=== PATIENT | female | born 1935 | race Caucasian/White ===

== ENCOUNTER 2021-04-17 06:00 | Day surgery (SDC) | payer MEDICARE ==
[~2021-04-17] VITALS: Ht 152.4 cm; Wt 76.9 kg
[~2021-04-17 06:00] MED LIST: ALLO300 PO; ATOR20 PO; Cipro250 MG PO; FURO40 PO; GABA300 PO; Humalog100 UNIT/1; Humulin N100 UNIT/1; INVOKANA300 MG PO; LOSA50 PO; LYRICA50 MG PO; METO50 PO; METO5A PO; Norco 5-325 Ta1 EACH PO; ONDA4 PO; ONDA8 PO; PROC10 PO; TRESIBA FL200 UNIT/1 SQ; TRESIBA100 UNIT/2 SC; Zofran Odt4 MG SL
--- NOTE | 2021-04-17 09:34 | NUR ---
04/17/21 0934 Fernando Tyler NO SPECIMEN PER
--- NOTE | 2021-04-17 11:08 | NUR ---
PT ARRIVED TO THE ROOM AT 1055. PT IS DROWSY BUT AWAKENS WHEN SPOKEN TO, SHE IS ORIENTED. DENIES PAIN AND NAUSEA. SHE REPORTS FEELING. TIRED. WILL CONTINUE TO MONITOR.
--- NOTE | 2021-04-17 15:07 | NUR ---
DISCHARGE PT PROVIDED WITH WRITTEN AND VERBAL DISCHARGE, SHE REPORTED UNDERSTANDING, FAMILY ALSO REPORTED UNDERSTANDING. PRESCRIPTIONS FOR PERCOCET AND XARELTO PROVIDED FOR PT, SHE REQUESTED THAT HER SON TAKE THEM AND HAVE THEM FILLED. CLEAN AQUACEL DRESSINGS PROVIDED FOR HOME. PT MET ALL THERAPY GOALS, TOLERATED PO, PAIN MANAGED AND VSS AT TIME OF DISCHARGE. PT ESCORTED OUT IN W/C BY THOMPSON BALTAZAR.
--- NOTE | 2021-04-17 18:00 | NUR ---
SHIFT SUMMARY PT IS POD#0 FROM R TKA WITH DR. SEGOVIA. SHE IS ALERT AND ORIENTED SINCE SURGERY. SHE WAS ABLE TO GET OOB TO THE BSC WITH THERAPY BUT FELT DIZZY AND HAD ELEVATED BP. PT WAS ASSISTED BACK TO BED AND BP DECREASED. PT HAS COMPLAINED OF NAUSEA WITH MOVEMENT, BUT HAS TOLERATED SOME CLEAR LIQUIDS. PT HAS DENIED PAIN. VSS. WILL MONITOR UNTIL REPORT TO FABI MCCOY.
[2021-04-18 06:34] LABS: BASOPHILS ABSOLUTE AUTO 0.02 K/mm3 (0.00-0.23); BASOPHILS PERCENT AUTO 0 % (0-2); EOSINOPHILS ABSOLUTE AUTO 0.01 K/mm3 (0.00-0.68); EOSINOPHILS PERCENT AUTO 0 % (0-6); Hemoglobin 9.1 g/dL (11.5-16.0); IMMATURE GRAN ABSOLUTE AUTO 0.08 K/mm3 (0.00-0.10); IMMATURE GRAN PERCENT AUTO 1 % (0-1); LYMPHOCYTES ABSOLUTE AUTO 2.18 K/mm3 (0.84-5.20); LYMPHOCYTES PERCENT AUTO 15 % (21-46); MONOCYTES ABSOLUTE AUTO 0.99 K/mm3 (0.16-1.47); MONOCYTES PERCENT AUTO 7 % (4-13); Mean Corpuscular HGB 30.6 pg (26.0-34.0); Mean Corpuscular HGB Conc 32.5 g/dL (31.5-36.5); Mean Corpuscular Volume 94 fL (80-100); Mean Platelet Volume 10.8 fL (9.1-12.4); NEUTROPHILS ABSOLUTE AUTO 11.06 K/mm3 (1.96-9.15); NEUTROPHILS PERCENT AUTO 77 % (41-73); Platelet Count 262 K/mm3 (150-400); RDW Coefficient Variation 14.6 % (11.7-14.2); RDW Standard Deviation 50.4 fL (35.1-46.3); Red Blood Cell Count 2.97 M/mm3 (3.80-5.20); White Blood Cell Count 14.34 K/mm3 (4.00-11.30)
[2021-04-18 06:59] LABS: Bun/Creatinine Ratio 30.7 (12.0-20.0); Calcium, Blood 8.1 mg/dL (8.5-10.1); Creatinine, Blood 1.66 mg/dL (0.40-1.00); Magnesium, Blood 2.5 mg/dL (1.6-2.4); Potassium, Blood 5.3 mmol/L (3.5-5.5)
--- NOTE | 2021-04-18 11:45 | NUR ---
notified kane monsalve np of patients cbg results. no new orders
[2021-04-18] MEDS ORDERED: AMOCLA875 PO (12:09)
[2021-04-18] MEDS ORDERED: Aspir 8181 MG PO (12:10)
[2021-04-18] MEDS ORDERED: OXAYDO5 M1 PO (12:11)
[2021-04-18] MEDS ORDERED: PROMETHAZINE12.5 M1 PO (12:12)
--- NOTE | 2021-04-18 16:36 | NUR ---
1608 DISCHARGED TO HOME WITH HER SISTER. PT STATES HER SON WILL BE STAYING WITH HER FOR LONG SHE NEEDS. PT AMBULATING IN ROOM AND DUNNE WITH WALKER AND GAIT BELT. PT STANDBY ASSIST. PT REPORTS PAIN IS ADEQUATELY CONTROLLED WOITH PO MEDS. ABRAHAN PO FOOD AND FKUID WITHOUT NAUSEA. PT TELLS ME SHE IS ABLE TO MANAGE HER BLOOD SUGARS AT HOME- PT AWARE THEY ARE ELEVATED AND FEELS THIS IS DUE TO HER MISSING YESTERDAYS USUAL INSULIN REGIME
== END 2021-04-18 16:08 | disposition home or self-care (01) ==
LOC: ORSCMMR 06:00 → SURS 11:23 → ORD 12:30 → SURS 13:45 → ORD 14:00 → ORSCMMR 14:00 → ORD 14:30 → ORSCMMR 04-18 16:08
PROVIDERS: Orthopaedic Surgery
DX: M17.11 Unilateral primary osteoarthritis, right knee (principal); I10 Essential (primary) hypertension; I25.10 Atherosclerotic heart disease of native coronary artery without angina pectoris; N18.9 Chronic kidney disease, unspecified; E11.40 Type 2 diabetes mellitus with diabetic neuropathy, unspecified; Z79.4 Long term (current) use of insulin; Z79.899 Other long term (current) drug therapy; E66.9 Obesity, unspecified; Z68.33 Body mass index [BMI] 33.0-33.9, adult
CPT/HCPCS: 36415; 73560-RT; 80048; 82947; 83735; 85025; 97110; 97116; 97161; 97530; A9270; C1713; C1776; J0171; J0690; J0735; J1100; J1815; J1885; J2250; J2405; J2704; J2795; J3010; J7040; J7120

== ENCOUNTER 2021-05-06 09:26 | Day surgery (SDC) | payer MEDICARE ==
[~2021-05-06 09:26] MED LIST changes: +AMOCLA875 PO; +Aspir 8181 MG PO; +OXAYDO5 M1 PO; +PROMETHAZINE12.5 M1 PO
== END 2021-05-06 23:07 | disposition home or self-care (01) ==
LOC: MOI US 09:26 → EDSTATUS 10:15 → MOI US 23:07 → MOI MAM 05-27 08:00
DX: N64.1 Fat necrosis of breast (principal)
CPT/HCPCS: 19083; 77065; 88305; A4648; G0279

== ENCOUNTER 2021-05-08 04:46 | Inpatient (IN) | payer MEDICARE ==
[~2021-05-08] VITALS: Ht 152.4 cm; Wt 81.1 kg
[2021-05-08 05:51] LABS: BASOPHILS ABSOLUTE AUTO 0.04 K/mm3 (0.00-0.23); BASOPHILS PERCENT AUTO 1 % (0-2); EOSINOPHILS ABSOLUTE AUTO 0.27 K/mm3 (0.00-0.68); EOSINOPHILS PERCENT AUTO 4 % (0-6); Hematocrit 29.3 % (33.0-51.0); Hemoglobin 9.3 g/dL (11.5-16.0); IMMATURE GRAN ABSOLUTE AUTO 0.03 K/mm3 (0.00-0.10); IMMATURE GRAN PERCENT AUTO 0 % (0-1); LYMPHOCYTES PERCENT AUTO 28 % (21-46); MONOCYTES ABSOLUTE AUTO 0.63 K/mm3 (0.16-1.47); MONOCYTES PERCENT AUTO 8 % (4-13); Mean Corpuscular HGB 29.5 pg (26.0-34.0); Mean Corpuscular HGB Conc 31.7 g/dL (31.5-36.5); Mean Corpuscular Volume 93 fL (80-100); Mean Platelet Volume 9.5 fL (9.1-12.4); NEUTROPHILS ABSOLUTE AUTO 4.48 K/mm3 (1.96-9.15); NEUTROPHILS PERCENT AUTO 59 % (41-73); Platelet Count 269 K/mm3 (150-400); RDW Coefficient Variation 14.9 % (11.7-14.2); RDW Standard Deviation 51.2 fL (35.1-46.3); Red Blood Cell Count 3.15 M/mm3 (3.80-5.20); White Blood Cell Count 7.55 K/mm3 (4.00-11.30)
[2021-05-08] MEDS ORDERED: TRULICITY0.75 MG/01 SC (05:55)
[2021-05-08] MEDS ORDERED: NORT25 PO (05:57)
[2021-05-08 06:20] LABS: Alanine Aminotransfer (ALT/SGP 25 U/L (12-78); Albumin, Blood 2.5 g/dL (3.4-5.0); Albumin/Globulin Ratio 0.6 (0.8-1.8); Alk Phos 120 U/L (50-136); Anion Gap 4 mmol/L (6-16); Aspartate Aminotrans (AST/SGOT 25 U/L (12-37); Bilirubin, Total 0.2 mg/dL (0.1-1.0); Blood Urea Nitrogen 35 mg/dL (8-24); Bun/Creatinine Ratio 24.1 (12.0-20.0); CO2, Blood 33 mmol/L (21-32); Calcium, Blood 8.5 mg/dL (8.5-10.1); Chloride, Blood 104 mmol/L (98-108); Creatinine, Blood 1.45 mg/dL (0.40-1.00); Globulin, Blood 4.3 g/dL (2.2-4.0); Glomerular Filtration Rate 34 (60-); Glucose, Blood 104 mg/dL (70-99); Sodium, Blood 141 mmol/L (136-145); Total Protein, Blood 6.8 g/dL (6.4-8.2); Troponin I <0.015 ng/mL (0.000-0.040)
[2021-05-08 06:23] LABS: Influenza A, PCR NEGATIVE (NEGATIVE); Influenza B, PCR NEGATIVE (NEGATIVE); Resp Syncytial Virus, PCR NEGATIVE (NEGATIVE); SARS-Cov-2 (COVID-19) PCR, MMC NEGATIVE (NEGATIVE)
--- NOTE | 2021-05-08 16:06 | NUR ---
DAY SHIFT SUMMARY/ADMIT PT ADMIT FROM ER. PLEASANT 85 YEAR OLD FEMALE ADMITTED WITH ACUTE CHF. ON TELE WITH NSR AT 76. ORIENTED TO ROOM AND CALL LIGHT. MED REQ REVIEWED. PT DENIES PAIN AT TIME OF ADMIT. O2 2L NC. INDEPENDENT WITH STAND BY IN ROOM. STATES SHE USES A CANE MOST OF THE TIME AT HOME. PT REPORTS SHE HAD A FALL ABOUT A WEEK AGO AT HOME WHEN SHE GOT UP FROM BED IN THE MIDDLE OF THE NIGHT TO GO TO THE RESTROOM AND FELL. PT ALSO STATES SHE HAS RECENTLY (3 WEEKS AGO PER PT) HAD RT KNEE SURGERY.
--- NOTE | 2021-05-09 02:32 | NUR ---
HYDRALAZINE 10MG GIVEN IV PER PRN ORDER FOR SYSTOLIC >160.
--- NOTE | 2021-05-09 05:33 | NUR ---
MS SCHMITZ DID NOT GET MUCH SLEEP LAST NIGHT. SHE WAS UP MULTIPLE TIMES ON THE BEDSIDE COMMODE, SHE DID NOT COMPLAIN SHE SAID SHE WAS BREATHING MUCH BETTER THAT WHEN SHE ARRIVED AT THE HOSPITAL. TOOK OXYCODONE ONCE IN THE EVENING WHICH RELIEVED HER RIGHT (SURGICAL) KNEE PAIN AND LATER TYLENOL FOR A HEADACHE WHICH RELIEVED IT FULLY. HYDRALAZINE 10MG IV GIVEN FOR ELEVATED BP (183/63) WITH DECREASE INTO 150 RANGE. ALERT, ORIENTED AND COOPERATIVE WITH CARE
[2021-05-09 06:01] LABS: Hematocrit 26.2 % (33.0-51.0); Hemoglobin 8.1 g/dL (11.5-16.0); Mean Corpuscular HGB 29.1 pg (26.0-34.0); Mean Corpuscular HGB Conc 30.9 g/dL (31.5-36.5); Mean Corpuscular Volume 94 fL (80-100); Mean Platelet Volume 10.2 fL (9.1-12.4); Platelet Count 263 K/mm3 (150-400); RDW Coefficient Variation 14.6 % (11.7-14.2); RDW Standard Deviation 51.1 fL (35.1-46.3); Red Blood Cell Count 2.78 M/mm3 (3.80-5.20); White Blood Cell Count 7.05 K/mm3 (4.00-11.30)
[2021-05-09 06:56] LABS: Albumin, Blood 2.1 g/dL (3.4-5.0); Anion Gap 5 mmol/L (6-16); Blood Urea Nitrogen 36 mg/dL (8-24); Bun/Creatinine Ratio 27.9 (12.0-20.0); CO2, Blood 30 mmol/L (21-32); Calcium, Blood 8.6 mg/dL (8.5-10.1); Chloride, Blood 106 mmol/L (98-108); Creatinine, Blood 1.29 mg/dL (0.40-1.00); Glomerular Filtration Rate 39 (60-); Glucose, Blood 45 mg/dL (70-99); Phosphorus, Blood 3.7 mg/dL (2.5-4.9); Potassium, Blood 3.9 mmol/L (3.5-5.5); Sodium, Blood 141 mmol/L (136-145)
--- NOTE | 2021-05-09 07:53 | NUR ---
PT GLUCOSE LVEL WAS 45. PT AWOKE EASILY WITH VERBLA STIMULI AND DID NOT REPORT ANY SYMPTOMS OF HYPOGLYCEMIA. PT GIVEN CRANBERRY JUICE AND YOGURT. REPEAT CBG WAS 56. PT GIVEN APPLE JUICE AND ORANGE JUICE.
--- NOTE | 2021-05-09 19:01 | NUR ---
SHIFT SUMMARY: PT A/O X 3 STANDBY ASSIST, PLEASANT AND COOPERATIVE. PT HAD ELEVATED BP T/OUT THE DAAY. PRN HYDRALAZINE GIVEN IN THE EVENING AND IMPROVED SLIGHTLY WITH SBP 167. PT ALSO DEVELOPED NAUSEA AND REPORTED IT WAS DUE TO EATING TOO MUCH AT LUNCH TIME. ORDER FOR ZOFRAN RECEIVED FROM DR. BORREGO WHICH WAS EFFECTIVE IN TREATING NAUSEA. PT HAD CRITICAL CBG OF 45 THIS AM BUT WAS IN HIGH 100'S DURING MEALS. NO OTHER ACUTE CONCERNS OR CHANGES.
[2021-05-10 04:37] LABS: Hematocrit 27.3 % (33.0-51.0); Hemoglobin 8.5 g/dL (11.5-16.0); Mean Corpuscular HGB 29.2 pg (26.0-34.0); Mean Corpuscular HGB Conc 31.1 g/dL (31.5-36.5); Mean Corpuscular Volume 94 fL (80-100); Mean Platelet Volume 9.4 fL (9.1-12.4); Platelet Count 280 K/mm3 (150-400); RDW Coefficient Variation 14.9 % (11.7-14.2); Red Blood Cell Count 2.91 M/mm3 (3.80-5.20); White Blood Cell Count 7.18 K/mm3 (4.00-11.30)
--- NOTE | 2021-05-10 04:39 | NUR ---
PATIENT HAS SOFT LUMP (FEELS LIKE FATTY TUMOR) RIGHT ABOVE IV. NO DISCOMFORT, OR DISCOLORATION NOTED. PATIENT UNSURE WHEN OR HOW SHE GOT IT. WILL CONTINUIE CLOSE MONITORING.
--- NOTE | 2021-05-10 04:43 | NUR ---
LEELEE SLEPT MUCH BETTER THAN HER PREVIOUS NIGHT. NAUSEATED EARLY IN THE EVENING, ARELI WORKED TO GIVE HER RELIEF. NO COMPLAINTS OF KNEE PAIN SHE COULDN'T TOLERATE. OOB FROM BED WITH A STANDBY ASSIST AND FWW TO BATHROOM WITH NO CONTACT BY STAFF
[2021-05-10 05:22] LABS: Bun/Creatinine Ratio 25.2 (12.0-20.0); Calcium, Blood 8.6 mg/dL (8.5-10.1); Creatinine, Blood 1.11 mg/dL (0.40-1.00); Percent Saturation 19.7 % (15.0-50.0); Potassium, Blood 4.2 mmol/L (3.5-5.5)
[2021-05-10] MEDS ORDERED: Aspir 8181 MG PO (11:12)
[2021-05-10] MEDS ORDERED: TORSE20 PO (11:13)
--- NOTE | 2021-05-10 11:36 | NUR ---
D'C IV W/BRUISING TO AREA. REVIEW D'C. AWARE NEEDS TO MAKE F/U APPT WE COULD NOT MAKE APPT DUE TO PCP BEING CLOSED. AWARE STOP TAKING LASIX AND WILL START DEMADEX TOMORROW. REVIEW MED. AWARE CAN RETURN TO E.R. IF NEEDED. REVIEW CHF DX. ANSWER ALL QUESTIONS. PATIENT VERBALIZES UNDERSTANDING. AWAITING RIDE.
== END 2021-05-10 11:54 | disposition home health service (06) | DRG 291 ==
LOC: ER 04:46 → ERHOLD 06:25 → MEDS 14:39
PROVIDERS: Emergency Medicine; Internal Medicine; ADMIT Family Medicine
DX: I13.0 Hypertensive heart and chronic kidney disease with heart failure and stage 1 through stage 4 chronic kidney disease, or unspecified chronic kidney disease (principal); I50.31 Acute diastolic (congestive) heart failure; I16.1 Hypertensive emergency; Z20.822 Contact with and (suspected) exposure to COVID-19; M10.9 Gout, unspecified; D63.1 Anemia in chronic kidney disease; N18.30 Chronic kidney disease, stage 3 unspecified; E11.22 Type 2 diabetes mellitus with diabetic chronic kidney disease; E78.5 Hyperlipidemia, unspecified; Z96.651 Presence of right artificial knee joint; Z90.49 Acquired absence of other specified parts of digestive tract; Z90.710 Acquired absence of both cervix and uterus; Z87.891 Personal history of nicotine dependence; Z79.4 Long term (current) use of insulin; Z79.82 Long term (current) use of aspirin; Z79.899 Other long term (current) drug therapy
CPT/HCPCS: 0241U; 19083; 36415; 71045; 77065; 78580; 80048; 80053; 80069; 82728; 82947; 83036; 83540; 83550; 83880; 84145; 84484; 85025; 85027; 85379; 88305; 93005; 93010; 93306; 94640; 94760; 96374; 99285-25; A4648; A9270; A9540; G0279; J0295; J0360; J1650; J1815; J1940; J2405; J7050

== ENCOUNTER 2021-06-28 18:53 | Emergency (ER) | payer MEDICARE ==
[~2021-06-28] VITALS: Ht 152.4 cm; Wt 73.9 kg
[~2021-06-28 18:53] MED LIST changes: +NORT25 PO; +TORSE20 PO; +TRULICITY0.75 MG/01 SC
[2021-06-28 20:05] LABS: BASOPHILS ABSOLUTE AUTO 0.04 K/mm3 (0.00-0.23); BASOPHILS PERCENT AUTO 0 % (0-2); EOSINOPHILS ABSOLUTE AUTO 0.07 K/mm3 (0.00-0.68); EOSINOPHILS PERCENT AUTO 1 % (0-6); Hematocrit 36.7 % (33.0-51.0); Hemoglobin 11.8 g/dL (11.5-16.0); IMMATURE GRAN ABSOLUTE AUTO 0.05 K/mm3 (0.00-0.10); IMMATURE GRAN PERCENT AUTO 0 % (0-1); LYMPHOCYTES ABSOLUTE AUTO 2.58 K/mm3 (0.84-5.20); LYMPHOCYTES PERCENT AUTO 20 % (21-46); MONOCYTES ABSOLUTE AUTO 0.99 K/mm3 (0.16-1.47); MONOCYTES PERCENT AUTO 8 % (4-13); Mean Corpuscular HGB Conc 32.2 g/dL (31.5-36.5); Mean Corpuscular Volume 87 fL (80-100); Mean Platelet Volume 9.9 fL (9.1-12.4); NEUTROPHILS ABSOLUTE AUTO 9.53 K/mm3 (1.96-9.15); NEUTROPHILS PERCENT AUTO 72 % (41-73); Platelet Count 309 K/mm3 (150-400); RDW Coefficient Variation 14.6 % (11.7-14.2); RDW Standard Deviation 46.2 fL (35.1-46.3); Red Blood Cell Count 4.22 M/mm3 (3.80-5.20); White Blood Cell Count 13.26 K/mm3 (4.00-11.30)
[2021-06-28 20:28] LABS: Alanine Aminotransfer (ALT/SGP 26 U/L (12-78); Albumin, Blood 3.2 g/dL (3.4-5.0); Albumin/Globulin Ratio 0.7 (0.8-1.8); Alk Phos 115 U/L (50-136); Anion Gap 8 mmol/L (6-16); Aspartate Aminotrans (AST/SGOT 16 U/L (12-37); Bilirubin, Total 0.3 mg/dL (0.1-1.0); Blood Urea Nitrogen 35 mg/dL (8-24); Bun/Creatinine Ratio 27.3 (12.0-20.0); CO2, Blood 30 mmol/L (21-32); Calcium, Blood 9.7 mg/dL (8.5-10.1); Chloride, Blood 99 mmol/L (98-108); Creatinine, Blood 1.28 mg/dL (0.40-1.00); Globulin, Blood 4.6 g/dL (2.2-4.0); Glomerular Filtration Rate 40 (60-); Glucose, Blood 133 mg/dL (70-99); Potassium, Blood 4.1 mmol/L (3.5-5.5); Sodium, Blood 137 mmol/L (136-145); Total Protein, Blood 7.8 g/dL (6.4-8.2); Troponin I <0.015 ng/mL (0.000-0.040)
[2021-06-28 21:50] LABS: Source, Urine Clean Catch
[2021-06-28 21:52] LABS: Bilirubin, Urine Neg (Neg); Blood, Urine 3+ (Neg); Glucose Qualitative, Urine Neg (Neg); Ketones, Urine Neg (Neg); Leukocyte Esterase, Urine 3+ (Neg); Nitrite, Urine Neg (Neg); Protein, Urine 3+ (Neg); Specific Gravity, Urine 1.015 (1.003-1.022); Urobilinogen, Urine NORM (Normal)
[2021-06-28 22:32] LABS: Appearance, Urine Cloudy (Clear); Color, Urine Pale Yellow (P-Yellow)
[2021-06-28 22:33] LABS: Bacteria Many /hpf; Red Blood Cells, Urine 25-50 /hpf (0-2); Squamous Epithelial Cells Few /hpf (Few); White Blood Cells, Urine 25-50 /hpf (0-5)
[2021-06-28 22:34] LABS: Mucus Mod (0-Heavy); Trichomonas Rare /hpf; Yeast/Fungi Urine Rare /hpf
[2021-06-28] MEDS ORDERED: ALBU8HFA2 INH (22:48)
[2021-06-28] MEDS ORDERED: PROC25S PO (22:50)
[2021-06-28] MEDS ORDERED: PROM25 PO (22:50)
[2021-06-28] MEDS ORDERED: FURO40 PO (22:53)
[2021-06-28] MEDS ORDERED: TRESIBA FL100 UNIT/2 SC (22:55)
[2021-06-28] MEDS ORDERED: FLUC150A PO (23:47)
[2021-06-28] MEDS ORDERED: CEFD300 PO (23:47)
[2021-06-28] MEDS ORDERED: Compro25 MG PR (23:49)
[2021-06-28] MEDS ORDERED: PROC5 PO (23:49)
[2021-06-29] MEDS ORDERED: CEFD300 PO (01:27)
[2021-06-29] MEDS ORDERED: Compro25 MG PR (01:27)
[2021-06-29] MEDS ORDERED: FLUC150A PO (01:27)
== END 2021-06-29 02:32 | disposition home or self-care (01) ==
LOC: ER 18:53
PROVIDERS: Physician Assistant
DX: N39.0 Urinary tract infection, site not specified (principal); E11.65 Type 2 diabetes mellitus with hyperglycemia; R11.2 Nausea with vomiting, unspecified; I10 Essential (primary) hypertension; E78.5 Hyperlipidemia, unspecified; M10.9 Gout, unspecified; Z87.891 Personal history of nicotine dependence; Z79.4 Long term (current) use of insulin; Z79.899 Other long term (current) drug therapy
CPT/HCPCS: 36415; 80053; 81001; 83690; 84484; 85025; 87077; 87086; 87186; 93005; 93010; 96365; 96375; 99285-25; A9270; J0696; J0780; J1790; J2405; J7030

== ENCOUNTER 2021-11-24 12:02 | Inpatient (IN) | payer MEDICARE ==
[~2021-11-24] VITALS: Ht 152.4 cm; Wt 79.4 kg
[~2021-11-24 12:02] MED LIST changes: +ALBU8HFA2 INH; +CEFD300 PO; +Compro25 MG PR; +FLUC150A PO; +NOVOLOG100 UNIT/2 SC; +PROC25S PO; +PROC5 PO; +PROM25 PO; +TRESIBA FL100 UNIT/2 SC
[2021-11-24 13:10] LABS: BASOPHILS ABSOLUTE AUTO 0.04 K/mm3 (0.00-0.23); BASOPHILS PERCENT AUTO 0 % (0-2); EOSINOPHILS ABSOLUTE AUTO 0.14 K/mm3 (0.00-0.68); EOSINOPHILS PERCENT AUTO 1 % (0-6); Hematocrit 38.2 % (33.0-51.0); Hemoglobin 12.2 g/dL (11.5-16.0); IMMATURE GRAN ABSOLUTE AUTO 0.07 K/mm3 (0.00-0.10); IMMATURE GRAN PERCENT AUTO 0 % (0-1); LYMPHOCYTES ABSOLUTE AUTO 2.04 K/mm3 (0.84-5.20); LYMPHOCYTES PERCENT AUTO 11 % (21-46); MONOCYTES ABSOLUTE AUTO 0.86 K/mm3 (0.16-1.47); MONOCYTES PERCENT AUTO 5 % (4-13); Mean Corpuscular HGB 29.8 pg (26.0-34.0); Mean Corpuscular HGB Conc 31.9 g/dL (31.5-36.5); Mean Corpuscular Volume 93 fL (80-100); Mean Platelet Volume 10.5 fL (9.1-12.4); NEUTROPHILS ABSOLUTE AUTO 14.81 K/mm3 (1.96-9.15); NEUTROPHILS PERCENT AUTO 82 % (41-73); Platelet Count 266 K/mm3 (150-400); RDW Coefficient Variation 13.2 % (11.7-14.2); RDW Standard Deviation 44.3 fL (35.1-46.3); White Blood Cell Count 17.96 K/mm3 (4.00-11.30)
[2021-11-24 13:20] LABS: Albumin/Globulin Ratio 0.6 (0.8-1.8); Bilirubin, Total 0.3 mg/dL (0.1-1.0); Bun/Creatinine Ratio 23.9 (12.0-20.0); Calcium, Blood 8.9 mg/dL (8.5-10.1); Creatinine, Blood 1.42 mg/dL (0.40-1.00); Globulin, Blood 4.8 g/dL (2.2-4.0); Potassium, Blood 3.8 mmol/L (3.5-5.5); Total Protein, Blood 7.8 g/dL (6.4-8.2)
[2021-11-24 14:10] LABS: Influenza A, PCR NEGATIVE (NEGATIVE); Influenza B, PCR NEGATIVE (NEGATIVE); Resp Syncytial Virus, PCR NEGATIVE (NEGATIVE); SARS-Cov-2 (COVID-19) PCR, MMC NEGATIVE (NEGATIVE)
--- NOTE | 2021-11-24 17:34 | NUR ---
SHIFT SUMMARY- PT NEW ADMIT. PT A&O X3. NO C/O OF PAIN. DAUGHTER AT BEDSIDE. PT WITH BED IN LOWEST POSITION, SIDE RAILS UP X3, AND CALL LIGHT WITHIN REACH.
[2021-11-25 04:29] LABS: Hematocrit 30.5 % (33.0-51.0); Hemoglobin 9.9 g/dL (11.5-16.0); Mean Corpuscular HGB 30.3 pg (26.0-34.0); Mean Corpuscular HGB Conc 32.5 g/dL (31.5-36.5); Mean Corpuscular Volume 93 fL (80-100); Mean Platelet Volume 10.8 fL (9.1-12.4); Platelet Count 213 K/mm3 (150-400); RDW Coefficient Variation 13.4 % (11.7-14.2); Red Blood Cell Count 3.27 M/mm3 (3.80-5.20); White Blood Cell Count 15.11 K/mm3 (4.00-11.30)
--- NOTE | 2021-11-25 04:57 | NUR ---
SHIFT SUMMARY PATIENT HAD NO ACUTE CHANGES OBSERVED. AXOX 3 AND ONE ASSIST TO BSC. RT IN FOR BREATHING TX. ON TELEMETRY NSR 96. PIV REMAINS INTACT. ON 2L O2 NC AND RA BASELINE. VSS/AFEBRILE. DENIES PAIN AND N/V. COOPERATIVE WITH CARE. CALL LIGHT IN REACH. BED IN LOWEST POSITION. WILL CONTINUE TO MONITOR UNTIL DAY SHIFT NURSE ASSUMES CARE.
[2021-11-25 05:03] LABS: Bun/Creatinine Ratio 29.1 (12.0-20.0); Calcium, Blood 8.4 mg/dL (8.5-10.1); Creatinine, Blood 1.58 mg/dL (0.40-1.00)
--- NOTE | 2021-11-25 05:50 | NUR ---
CBG 537. HOSPITALIST DR DUPONT ORDERED HUMALOG 10 UNITS X ONE. RECHECK IN TWO HOURS.
--- NOTE | 2021-11-25 16:17 | NUR ---
SHIFT SUMMARY PATIENT IS ALERT AND ORIENTED X4, PLEASANT AND COOPERATIVE WITH CARE. PATIENT HAS BEEN DOING WELL TODAY. PATIENT IS NOW ON RA SATTING ABOVE 90% NO SOB OR DISTRESS NOTED. CBG'S HAVE BEEN TRENDING DOWN SINCE THIS AM. PATIENT HAS BEEN UP A STAND BY ASSIST TO THE SHOWER AND BATHROOM. PATIENT CALLS APPROPRIATELY. NO ACUTE CHANGES THIS SHIFT. CALL LIGHT WITHIN REACH, BED IN LOWEST POSITION.
--- NOTE | 2021-11-26 04:03 | NUR ---
SHIFT SUMMARY ADMITTED FOR RESPIRATORY FAILURE. FULL CODE. PLAN IS TO DIURESE AND MONITOR OXYGEN NEEDS. PT FELT SOB THIS SHIFT AND REQUESTED 2 LPM O2. TELEMETRY: TACH @ 101 BPM. ADA DIET. STANDBY ASSIST W/BRP. ACHS CHEMSTICKS. PT REPORTS DIFFICULTY SLEEPING
[2021-11-26] MEDS ORDERED: FURO40 PO (13:57)
[2021-11-26] MEDS ORDERED: ASPI81CH PO (13:59)
[2021-11-26] MEDS ORDERED: SPIR25 PO (13:59)
--- NOTE | 2021-11-26 16:52 | NUR ---
DISCHARGE INSTRUCTIONS COMPLETED AND DISCUSSED WITH PT EXPRESSING UNDEERSTANDING. SCRIPTS FAXED TO [facility]. O2 DELIVERED TO ROOM AND PT WHEELED TO [facility]B VIA W/C. CONTINUES TO HAVE AUDIBLE WHEEZING PRIOR TO DISCHARGE.
== END 2021-11-26 16:46 | disposition home or self-care (01) | DRG 291 ==
LOC: ER 12:02 → MEDS 16:08
PROVIDERS: Emergency Medicine; Physician Assistant; ADMIT Internal Medicine
DX: I13.0 Hypertensive heart and chronic kidney disease with heart failure and stage 1 through stage 4 chronic kidney disease, or unspecified chronic kidney disease (principal); J96.01 Acute respiratory failure with hypoxia; I50.31 Acute diastolic (congestive) heart failure; N18.30 Chronic kidney disease, stage 3 unspecified; D63.1 Anemia in chronic kidney disease; Z20.822 Contact with and (suspected) exposure to COVID-19; E11.65 Type 2 diabetes mellitus with hyperglycemia; E11.22 Type 2 diabetes mellitus with diabetic chronic kidney disease; Z79.899 Other long term (current) drug therapy; Z79.82 Long term (current) use of aspirin; Z79.4 Long term (current) use of insulin; K59.09 Other constipation; Z96.651 Presence of right artificial knee joint; Z87.891 Personal history of nicotine dependence; Z90.49 Acquired absence of other specified parts of digestive tract; Z90.710 Acquired absence of both cervix and uterus
CPT/HCPCS: 0241U; 36415; 71045; 80048; 80053; 82947; 83880; 84484; 85025; 85027; 93005; 93010; 93306; 94640; 94644; 94664; 94760; 94761; 94762; 96374; 96375; 99285-25; A9270; J1815; J1940; J2405; J2930

== ENCOUNTER 2022-01-20 11:50 | Inpatient (IN) | payer MEDICARE ==
[~2022-01-20] VITALS: Ht 152.4 cm; Wt 73.6 kg
[~2022-01-20 11:50] MED LIST changes: +ASPI81CH PO; -ONDA4 PO; +ONDA4ODT MM; +SPIR25 PO
[2022-01-20 12:20] LABS: BASOPHILS ABSOLUTE AUTO 0.05 K/mm3 (0.00-0.23); BASOPHILS PERCENT AUTO 1 % (0-2); EOSINOPHILS ABSOLUTE AUTO 0.34 K/mm3 (0.00-0.68); EOSINOPHILS PERCENT AUTO 3 % (0-6); Hemoglobin 9.3 g/dL (11.5-16.0); IMMATURE GRAN ABSOLUTE AUTO 0.06 K/mm3 (0.00-0.10); IMMATURE GRAN PERCENT AUTO 1 % (0-1); LYMPHOCYTES ABSOLUTE AUTO 2.43 K/mm3 (0.84-5.20); LYMPHOCYTES PERCENT AUTO 23 % (21-46); MONOCYTES ABSOLUTE AUTO 0.76 K/mm3 (0.16-1.47); MONOCYTES PERCENT AUTO 7 % (4-13); Mean Corpuscular HGB 28.9 pg (26.0-34.0); Mean Corpuscular HGB Conc 33.2 g/dL (31.5-36.5); Mean Corpuscular Volume 87 fL (80-100); Mean Platelet Volume 10.4 fL (9.1-12.4); NEUTROPHILS ABSOLUTE AUTO 7.08 K/mm3 (1.96-9.15); NEUTROPHILS PERCENT AUTO 66 % (41-73); Platelet Count 358 K/mm3 (150-400); RDW Coefficient Variation 14.5 % (11.7-14.2); RDW Standard Deviation 45.5 fL (35.1-46.3); Red Blood Cell Count 3.22 M/mm3 (3.80-5.20); White Blood Cell Count 10.72 K/mm3 (4.00-11.30)
[2022-01-20 12:41] LABS: Source, Urine Clean Catch
[2022-01-20 12:44] LABS: Albumin, Blood 2.6 g/dL (3.4-5.0); Albumin/Globulin Ratio 0.6 (0.8-1.8); Bilirubin, Total 0.3 mg/dL (0.1-1.0); Bun/Creatinine Ratio 35.3 (12.0-20.0); Calcium, Blood 8.8 mg/dL (8.5-10.1); Creatinine, Blood 2.24 mg/dL (0.40-1.00); Globulin, Blood 4.4 g/dL (2.2-4.0); Potassium, Blood 5.7 mmol/L (3.5-5.5)
[2022-01-20 13:19] LABS: Bilirubin, Urine Neg (Neg); Blood, Urine Neg (Neg); Color, Urine Yellow (P-Yellow); Glucose Qualitative, Urine Neg (Neg); Ketones, Urine Neg (Neg); Leukocyte Esterase, Urine 3+ (Neg); Nitrite, Urine Neg (Neg); Protein, Urine 2+ (Neg); Urobilinogen, Urine NORM (Normal); pH, Urine 6.5 (5.0-8.0)
[2022-01-20 13:33] LABS: Appearance, Urine Hazy (Clear)
[2022-01-20 13:34] LABS: Bacteria Rare /hpf; Red Blood Cells, Urine Not Seen /hpf (0-2); Squamous Epithelial Cells Few /hpf (Few)
--- NOTE | 2022-01-20 16:51 | NUR ---
PT ARRIVED TO ROOM AT 1643. PT QUIET AND CALM 1 PERSON ASSIST TO RESTROO. PT AOX4 AND COOPERATIVE OF CARE. PT WAS SETTLED IN AND CALL LIGHT SET WITHIN REACH WILL CONTINUE TO MONITOR.
[2022-01-20 18:54] LABS: Bun/Creatinine Ratio 40.2 (12.0-20.0); Calcium, Blood 9.4 mg/dL (8.5-10.1); Creatinine, Blood 2.09 mg/dL (0.40-1.00); Potassium, Blood 4.7 mmol/L (3.5-5.5)
[2022-01-21 04:50] LABS: Hematocrit 27.4 % (33.0-51.0); Hemoglobin 8.7 g/dL (11.5-16.0); Mean Corpuscular HGB 28.2 pg (26.0-34.0); Mean Corpuscular HGB Conc 31.8 g/dL (31.5-36.5); Mean Corpuscular Volume 89 fL (80-100); Mean Platelet Volume 10.4 fL (9.1-12.4); Platelet Count 311 K/mm3 (150-400); RDW Coefficient Variation 14.5 % (11.7-14.2); Red Blood Cell Count 3.09 M/mm3 (3.80-5.20); White Blood Cell Count 7.77 K/mm3 (4.00-11.30)
--- NOTE | 2022-01-21 04:55 | NUR ---
SHIFT SUMMARY: A.OX4, 1 PERSON STANDBY ASSIST WHEN AMBULATING TO BATHROOM. PT IS CONTINENT, USES URINARY PAD FOR OCCASSIONAL STRESS INCONTINENCE. COMPLAINTS OF CHRONIC BACK PAIN MANAGED WITH PRN ACETAMINOPHEN. PT WAS RESTLESS TONIGHT AND REQUESTED HOME DOSE OF MELATONIN PER PT THIS WAS INEFFECTIVE, ADDITIONAL BENADRYL ORDERED TO ASSIST WITH SLEEP- PT ABLE TO REST FOLLOWING. PT CONTINUES TO CALL APPROPRIATELY. BED ALARM ACTIVATED, BED IN LOW POSITION AND CALL ORTEGA/BELONGINGS REMAIN IN REACH.
[2022-01-21 05:09] LABS: Bun/Creatinine Ratio 35.9 (12.0-20.0); Calcium, Blood 8.5 mg/dL (8.5-10.1); Creatinine, Blood 1.92 mg/dL (0.40-1.00); Magnesium, Blood 2.1 mg/dL (1.6-2.4); Potassium, Blood 4.4 mmol/L (3.5-5.5)
[2022-01-21 14:30] LABS: Bun/Creatinine Ratio 32.7 (12.0-20.0); Calcium, Blood 8.7 mg/dL (8.5-10.1); Creatinine, Blood 1.71 mg/dL (0.40-1.00); Potassium, Blood 4.7 mmol/L (3.5-5.5)
[2022-01-21] MEDS ORDERED: PROC5 PO (17:04)
[2022-01-21] MEDS ORDERED: HYDRA25 PO (17:04)
--- NOTE | 2022-01-21 19:33 | NUR ---
SHIFT SUMMARY PT AxOx4. PLEASANT AND COOPERATIVE WITH CARE. PT DENIES PAIN THIS SHIFT, BUT REPORTED NAUSEA/VOMITING T/O THE DAY. PT MEDICATED PER EMAR. DC ORDERS PLACED. MEDS CALLED TO PHARMACY. SON, KRIS ARRIVED TO DUPLICATE MAKER THE PATIENT, BUT RAISED CONCERNS ABOUT PT DISCHARGING TODAY. KRIS STATES, "SHE IS STILL HAVING THE SAME PROBLEMS WHEN SHE CAME IN." CARE TEAM AGREES TO ANOTHER NIGHT IN THE HOSPITAL AND POSSIBLE FURTHER TESTING IF NEEDED. PT IS CURRENTLY RESTING IN BED WITH CALL LIGHT IN REACH.
--- NOTE | 2022-01-22 03:58 | NUR ---
SHIFT SUMMARY 86 YR M ADMITTED ON 01/20/22 FOR FATOUMATA/CKD. FULL CODE. PT HAS C/O NAUSEA ALL SHIFT AND HAS BEEN MOANING VERY LOUDLY FOR NEARLY THE ENTIRE SHIFT. ZOFRAN GIVEN PER EMAR W/ LITTLE RELIEF. HOSPITALIST WAS CONTACTED AND BONNY ORDERED. IT SEEMED TO HELP BRIEFLY BUT PT STILL C/O N/V. SHE CALLS APPROPRIATELY FOR ASSISTANCE TO BEDSIDE COMMODE. SHE WAS SET TO DISCHARGE YESTERDAY BUT HER SON FELT THAT SHE WAS NOT READY TO GO HOME. BED IN LOW POSITION AND CALL LIGHT WITHIN REACH.
[2022-01-22 04:55] LABS: BASOPHILS ABSOLUTE AUTO 0.04 K/mm3 (0.00-0.23); BASOPHILS PERCENT AUTO 1 % (0-2); EOSINOPHILS ABSOLUTE AUTO 0.33 K/mm3 (0.00-0.68); EOSINOPHILS PERCENT AUTO 4 % (0-6); Hematocrit 27.3 % (33.0-51.0); Hemoglobin 8.8 g/dL (11.5-16.0); IMMATURE GRAN ABSOLUTE AUTO 0.03 K/mm3 (0.00-0.10); IMMATURE GRAN PERCENT AUTO 0 % (0-1); LYMPHOCYTES ABSOLUTE AUTO 2.66 K/mm3 (0.84-5.20); LYMPHOCYTES PERCENT AUTO 33 % (21-46); MONOCYTES ABSOLUTE AUTO 0.67 K/mm3 (0.16-1.47); MONOCYTES PERCENT AUTO 8 % (4-13); Mean Corpuscular HGB 28.4 pg (26.0-34.0); Mean Corpuscular HGB Conc 32.2 g/dL (31.5-36.5); Mean Corpuscular Volume 88 fL (80-100); Mean Platelet Volume 10.2 fL (9.1-12.4); NEUTROPHILS ABSOLUTE AUTO 4.32 K/mm3 (1.96-9.15); NEUTROPHILS PERCENT AUTO 54 % (41-73); Platelet Count 307 K/mm3 (150-400); RDW Coefficient Variation 14.6 % (11.7-14.2); RDW Standard Deviation 46.6 fL (35.1-46.3); White Blood Cell Count 8.05 K/mm3 (4.00-11.30)
[2022-01-22 05:15] LABS: Bun/Creatinine Ratio 29.5 (12.0-20.0); Calcium, Blood 8.9 mg/dL (8.5-10.1); Creatinine, Blood 1.39 mg/dL (0.40-1.00); Potassium, Blood 4.1 mmol/L (3.5-5.5)
[2022-01-22] MEDS ORDERED: METO10SY PO (16:01)
== END 2022-01-22 17:10 | disposition home or self-care (01) | DRG 683 ==
LOC: ER 11:50 → ERHOLD 14:55 → MEDS 14:55 → ENPENDDIS 01-21 17:51 → MEDS 01-22 07:51
PROVIDERS: Emergency Medicine; Internal Medicine; Nurse Practitioner Acute Care; ADMIT Internal Medicine
DX: N17.9 Acute kidney failure, unspecified (principal); I13.0 Hypertensive heart and chronic kidney disease with heart failure and stage 1 through stage 4 chronic kidney disease, or unspecified chronic kidney disease; I50.42 Chronic combined systolic (congestive) and diastolic (congestive) heart failure; N18.30 Chronic kidney disease, stage 3 unspecified; E11.22 Type 2 diabetes mellitus with diabetic chronic kidney disease; E87.5 Hyperkalemia; E11.43 Type 2 diabetes mellitus with diabetic autonomic (poly)neuropathy; K31.84 Gastroparesis; E78.5 Hyperlipidemia, unspecified; D63.1 Anemia in chronic kidney disease; Z90.49 Acquired absence of other specified parts of digestive tract; Z90.710 Acquired absence of both cervix and uterus; Z79.4 Long term (current) use of insulin; Z79.899 Other long term (current) drug therapy; Z79.82 Long term (current) use of aspirin; E11.65 Type 2 diabetes mellitus with hyperglycemia
CPT/HCPCS: 36415; 80048; 80053; 81001; 82947; 83735; 84484; 85025; 85027; 87086; 93005; 93010; 96360; 96361; 96372; 96375; 96376; 99285-25; A9270; G0378; J1644; J1815; J2405; J2550; J2765; J7030

== ENCOUNTER 2022-05-16 23:30 | Inpatient (IN) | payer MEDICARE ==
[~2022-05-16] VITALS: Ht 165.1 cm; Wt 73.0 kg
[~2022-05-16 23:30] MED LIST changes: +B-12500 MC2 PO; +CLOP75 PO; +DOCU100 PO; +HUMALOG KW100 UNIT/1 SC; +HYDRA25 PO; +MELA3 PO; +METO10SY PO; +MIRALAX17 GM PO; +OMEGA-3 FISH O1 EA13 PO; +PREG100 PO; +Prednisone10 MG PO; +THERA-D2000 UNIT PO; +TRELEGY ELLIPT1 EACH INH; +Tessalon200 MG PO
[2022-05-17 00:19] LABS: BASOPHILS ABSOLUTE AUTO 0.03 K/mm3 (0.00-0.23); BASOPHILS PERCENT AUTO 0 % (0-2); EOSINOPHILS ABSOLUTE AUTO 0.31 K/mm3 (0.00-0.68); EOSINOPHILS PERCENT AUTO 4 % (0-6); Hematocrit 31.1 % (33.0-51.0); Hemoglobin 9.6 g/dL (11.5-16.0); IMMATURE GRAN ABSOLUTE AUTO 0.03 K/mm3 (0.00-0.10); IMMATURE GRAN PERCENT AUTO 0 % (0-1); LYMPHOCYTES ABSOLUTE AUTO 1.67 K/mm3 (0.84-5.20); LYMPHOCYTES PERCENT AUTO 23 % (21-46); MONOCYTES ABSOLUTE AUTO 0.71 K/mm3 (0.16-1.47); MONOCYTES PERCENT AUTO 10 % (4-13); Mean Corpuscular HGB 28.3 pg (26.0-34.0); Mean Corpuscular HGB Conc 30.9 g/dL (31.5-36.5); Mean Corpuscular Volume 92 fL (80-100); Mean Platelet Volume 11.3 fL (9.1-12.4); NEUTROPHILS ABSOLUTE AUTO 4.61 K/mm3 (1.96-9.15); NEUTROPHILS PERCENT AUTO 63 % (41-73); Platelet Count 243 K/mm3 (150-400); RDW Coefficient Variation 15.9 % (11.7-14.2); RDW Standard Deviation 54.1 fL (35.1-46.3); Red Blood Cell Count 3.39 M/mm3 (3.80-5.20); White Blood Cell Count 7.36 K/mm3 (4.00-11.30)
[2022-05-17 00:31] LABS: Albumin, Blood 2.4 g/dL (3.4-5.0); Albumin/Globulin Ratio 0.5 (0.8-1.8); Bilirubin, Total 0.2 mg/dL (0.1-1.0); Bun/Creatinine Ratio 41.9 (12.0-20.0); Calcium, Blood 8.6 mg/dL (8.5-10.1); Creatinine, Blood 2.58 mg/dL (0.40-1.00); Globulin, Blood 4.7 g/dL (2.2-4.0); Potassium, Blood 5.8 mmol/L (3.5-5.5); Total Protein, Blood 7.1 g/dL (6.4-8.2)
--- NOTE | 2022-05-17 05:34 | NUR ---
Patient is A/Ox4. Denies any pain, CP/pressure. Patient is weak and states shes fallen multiple times in past few months. SBA to BSC, bed alarm. SR on tele 80's. BP stable. Urinary incontinence, purewick applied draining clear/yellow urine. Jacquelin area excoriated, cleaned and powder applied. No acute events. Patient slept most of the night since admit. Will report to dayshift RN.
[2022-05-17 06:42] LABS: BASOPHILS ABSOLUTE AUTO 0.03 K/mm3 (0.00-0.23); BASOPHILS PERCENT AUTO 0 % (0-2); EOSINOPHILS ABSOLUTE AUTO 0.36 K/mm3 (0.00-0.68); EOSINOPHILS PERCENT AUTO 5 % (0-6); Hematocrit 28.2 % (33.0-51.0); Hemoglobin 8.5 g/dL (11.5-16.0); IMMATURE GRAN ABSOLUTE AUTO 0.02 K/mm3 (0.00-0.10); IMMATURE GRAN PERCENT AUTO 0 % (0-1); LYMPHOCYTES ABSOLUTE AUTO 2.29 K/mm3 (0.84-5.20); LYMPHOCYTES PERCENT AUTO 29 % (21-46); MONOCYTES PERCENT AUTO 11 % (4-13); Mean Corpuscular HGB Conc 30.1 g/dL (31.5-36.5); Mean Corpuscular Volume 93 fL (80-100); Mean Platelet Volume 11.4 fL (9.1-12.4); NEUTROPHILS ABSOLUTE AUTO 4.32 K/mm3 (1.96-9.15); NEUTROPHILS PERCENT AUTO 55 % (41-73); Platelet Count 247 K/mm3 (150-400); RDW Coefficient Variation 16.3 % (11.7-14.2); RDW Standard Deviation 55.1 fL (35.1-46.3); Red Blood Cell Count 3.04 M/mm3 (3.80-5.20); White Blood Cell Count 7.92 K/mm3 (4.00-11.30)
[2022-05-17 06:58] LABS: Albumin, Blood 2.3 g/dL (3.4-5.0); Anion Gap 8 mmol/L (6-16); Blood Urea Nitrogen 95 mg/dL (8-24); Bun/Creatinine Ratio 40.8 (12.0-20.0); CO2, Blood 25 mmol/L (21-32); Calcium, Blood 8.8 mg/dL (8.5-10.1); Chloride, Blood 102 mmol/L (98-108); Creatinine, Blood 2.33 mg/dL (0.40-1.00); Glomerular Filtration Rate 20 (60-); Glucose, Blood 147 mg/dL (70-99); Phosphorus, Blood 5.9 mg/dL (2.5-4.9); Potassium, Blood 4.7 mmol/L (3.5-5.5); Sodium, Blood 135 mmol/L (136-145)
--- NOTE | 2022-05-17 18:34 | NUR ---
SHIFT SUMMARY: PATIENT A&OX4. PLEASANT AND COOPERATIVE WITH CARE. USES CALL LIGHT APPROPRIATELY AND ABLE TO ADVOCATE FOR HER NEEDS. PATIENT ON TELE AND HAS BEEN SR WITH PVC AT 71 BPM. DENIES CP/CHEST DISCOMFORT. LUNGS CLEAR T/O TO AUSCULTATION. RA WITH SPO2 OF 95-98%. DENIES SOB. DENIES PAIN. PATIENT HAS PUREWICK FOR URGENCY AND INCONT VOID. UP WITH SBA AND FWW. PATIENT WAS SITTING UP IN CHAIR FOR ALL MEALS THIS SHIFT AND TOLERATED WELL. IV TO R HAND INFUSING NS 100 MLS/HR. VITAL SIGNS REVIEWED. CALL LIGHT IN REACH.
--- NOTE | 2022-05-18 03:27 | NUR ---
SHIFT SUMMARY NO OVERNIGHT EVENTS. PT ORIENTED X4, SLEPT WELL OVERNIGHT. DENIES PAIN/SOB. AMBULATING SBA FWW TO BATHROOM, PUREWICK IN PLACE D/T INCONTINENT SPELLS WHEN ASLEEP. NSR ON TELE. ABLE TO MAKE NEEDS KNOWN.
[2022-05-18 05:37] LABS: BASOPHILS ABSOLUTE AUTO 0.02 K/mm3 (0.00-0.23); BASOPHILS PERCENT AUTO 0 % (0-2); EOSINOPHILS ABSOLUTE AUTO 0.23 K/mm3 (0.00-0.68); EOSINOPHILS PERCENT AUTO 4 % (0-6); Hematocrit 27.7 % (33.0-51.0); Hemoglobin 8.7 g/dL (11.5-16.0); IMMATURE GRAN ABSOLUTE AUTO 0.01 K/mm3 (0.00-0.10); IMMATURE GRAN PERCENT AUTO 0 % (0-1); LYMPHOCYTES PERCENT AUTO 23 % (21-46); MONOCYTES PERCENT AUTO 9 % (4-13); Mean Corpuscular HGB 28.2 pg (26.0-34.0); Mean Corpuscular HGB Conc 31.4 g/dL (31.5-36.5); Mean Corpuscular Volume 90 fL (80-100); Mean Platelet Volume 11.1 fL (9.1-12.4); NEUTROPHILS ABSOLUTE AUTO 4.28 K/mm3 (1.96-9.15); NEUTROPHILS PERCENT AUTO 64 % (41-73); Platelet Count 217 K/mm3 (150-400); RDW Coefficient Variation 16.2 % (11.7-14.2); RDW Standard Deviation 53.3 fL (35.1-46.3); Red Blood Cell Count 3.08 M/mm3 (3.80-5.20); White Blood Cell Count 6.64 K/mm3 (4.00-11.30)
[2022-05-18 06:47] LABS: Bun/Creatinine Ratio 44.2 (12.0-20.0); Calcium, Blood 7.9 mg/dL (8.5-10.1); Creatinine, Blood 1.81 mg/dL (0.40-1.00); Potassium, Blood 5.4 mmol/L (3.5-5.5)
--- NOTE | 2022-05-18 12:05 | NUR ---
PT DISCHARGED THE PT VERBALIZED UNDERSTANDING OF THE DC INSTRUCTIONS. THE PT WAS REMINDED TO CALL ON THURSDAY TO SCHEDULE A FOLLOW UP APPOINTMENT WITH HER PCP. THE PT WAS TRANSFERED VIA WHEELCHAIR ACCOMPANIED BY THE GLASS FRAME FITTER AND HER FAMILY
[2022-05-21] MEDS ORDERED: METO10 PO (21:04)
[2022-05-21] MEDS ORDERED: CEPH500 PO (21:04)
== END 2022-05-18 11:26 | disposition home or self-care (01) | DRG 683 ==
LOC: ER 23:30 → MEDS 05-17 02:40
PROVIDERS: Family Medicine; Internal Medicine; Student in an Organized Health Care Education/Training Program; ADMIT Internal Medicine
DX: N17.9 Acute kidney failure, unspecified (principal); E87.1 Hypo-osmolality and hyponatremia; I50.42 Chronic combined systolic (congestive) and diastolic (congestive) heart failure; I34.0 Nonrheumatic mitral (valve) insufficiency; E11.649 Type 2 diabetes mellitus with hypoglycemia without coma; E87.5 Hyperkalemia; I25.10 Atherosclerotic heart disease of native coronary artery without angina pectoris; J44.9 Chronic obstructive pulmonary disease, unspecified; E11.22 Type 2 diabetes mellitus with diabetic chronic kidney disease; N18.32 Chronic kidney disease, stage 3b; E78.5 Hyperlipidemia, unspecified; M10.9 Gout, unspecified; Z90.710 Acquired absence of both cervix and uterus; Z90.49 Acquired absence of other specified parts of digestive tract; Z96.651 Presence of right artificial knee joint; Z95.5 Presence of coronary angioplasty implant and graft; Z79.899 Other long term (current) drug therapy; Z79.82 Long term (current) use of aspirin; Z79.4 Long term (current) use of insulin; D63.1 Anemia in chronic kidney disease; Z23 Encounter for immunization
CPT/HCPCS: 36415; 80048; 80053; 80069; 82947; 85025; 90686; 93005; 93010; 94640; 94664; 94760; 96361; 96374; 97161; 97530; 99285-25; A9270; J0610; J1644; J1815; J7030

== ENCOUNTER 2022-08-07 01:06 | Day surgery (SDC) | payer MEDICARE ==
[~2022-08-07 01:06] MED LIST changes: +CEPH500 PO; +METO10 PO
[2022-08-07] MEDS ORDERED: IRON18 MG PO (09:05)
[2022-08-07] MEDS ORDERED: ALLO300 PO (09:06)
[2022-08-07] MEDS ORDERED: PROC5 PO (09:06)
[2022-08-07] MEDS ORDERED: ENTRESTO 24 MG1 EACH PO (09:07)
[2022-08-07] MEDS ORDERED: TRELEGY ELLIPT1 EACH INH (09:07)
[2022-08-07] MEDS ORDERED: ONDA4 PO (09:08)
[2022-08-07] MEDS ORDERED: ASPIR 8181 M1 (09:08)
[2022-08-07] MEDS ORDERED: PROM25 PO (09:08)
[2022-08-07] MEDS ORDERED: PREG100 PO (09:08)
[2022-08-07 13:06] LABS: BASOPHILS ABSOLUTE AUTO 0.03 K/mm3 (0.00-0.23); BASOPHILS PERCENT AUTO 0 % (0-2); EOSINOPHILS ABSOLUTE AUTO 0.28 K/mm3 (0.00-0.68); EOSINOPHILS PERCENT AUTO 3 % (0-6); Hematocrit 31.4 % (33.0-51.0); Hemoglobin 9.9 g/dL (11.5-16.0); IMMATURE GRAN ABSOLUTE AUTO 0.06 K/mm3 (0.00-0.10); IMMATURE GRAN PERCENT AUTO 1 % (0-1); LYMPHOCYTES ABSOLUTE AUTO 1.47 K/mm3 (0.84-5.20); LYMPHOCYTES PERCENT AUTO 17 % (21-46); MONOCYTES ABSOLUTE AUTO 0.69 K/mm3 (0.16-1.47); MONOCYTES PERCENT AUTO 8 % (4-13); Mean Corpuscular HGB 28.3 pg (26.0-34.0); Mean Corpuscular HGB Conc 31.5 g/dL (31.5-36.5); Mean Corpuscular Volume 90 fL (80-100); NEUTROPHILS ABSOLUTE AUTO 5.97 K/mm3 (1.96-9.15); NEUTROPHILS PERCENT AUTO 70 % (41-73); Platelet Count 212 K/mm3 (150-400); RDW Coefficient Variation 17.4 % (11.7-14.2); RDW Standard Deviation 56.4 fL (35.1-46.3)
== END 2022-08-07 12:45 | disposition home or self-care (01) ==
LOC: ATC 01:06
PROVIDERS: Family Medicine
DX: I13.0 Hypertensive heart and chronic kidney disease with heart failure and stage 1 through stage 4 chronic kidney disease, or unspecified chronic kidney disease (principal); D63.1 Anemia in chronic kidney disease; E11.22 Type 2 diabetes mellitus with diabetic chronic kidney disease; E78.5 Hyperlipidemia, unspecified; M10.9 Gout, unspecified; M54.17 Radiculopathy, lumbosacral region; G47.09 Other insomnia; N18.32 Chronic kidney disease, stage 3b; I50.23 Acute on chronic systolic (congestive) heart failure; Z79.4 Long term (current) use of insulin
CPT/HCPCS: 36415; 36430; 85025; 86850; 86900; 86901; 86923; J7050; P9016

== ENCOUNTER → 2022-09-17 | Outpatient (CLI) | payer MEDICARE ==
[~2022-09-17] MED LIST changes: +ASPIR 8181 M1; +ENTRESTO 24 MG1 EACH PO; +IRON18 MG PO; +ONDA4 PO
[2022-09-18 17:59] LABS: Adenovirus F 40/41 Not Detected (NOT DETECT); Astrovirus Not Detected (NOT DETECT); Campylobacter Sp Not Detected (NOT DETECT); Cryptosporidium Not Detected (NOT DETECT); Cyclospora Cayetanensis Not Detected (NOT DETECT); E. Coli O157 Not Detected (NOT DETECT); Entamoeba Histolytica Not Detected (NOT DETECT); Enteroaggregative E. coli-EAEC Not Detected (NOT DETECT); Enteropathogenic E. coli-EPEC Not Detected (NOT DETECT); Enterotoxigenic E. coli-ETEC Not Detected (NOT DETECT); Giardia Lamblia Not Detected (NOT DETECT); Norovirus GI/GII Not Detected (NOT DETECT); Plesiomonas Shigelloides Not Detected (NOT DETECT); Rotavirus A Not Detected (NOT DETECT); Salmonella Sp Not Detected (NOT DETECT); Sapovirus Not Detected (NOT DETECT); Shiga Toxin-prod E. coli-STEC Not Detected (NOT DETECT); Shigella/Enteroin E. coli-EIEC Not Detected (NOT DETECT); Vibrio Cholerae Not Detected (NOT DETECT); Vibrio Sp Not Detected (NOT DETECT); Yersinia Enterocolitica Not Detected (NOT DETECT)
== END | disposition home or self-care (01) ==
LOC: LAB SHORT 21:00
PROVIDERS: Family Medicine
DX: R19.7 Diarrhea, unspecified (principal)
CPT/HCPCS: 87507

== ENCOUNTER 2022-09-27 11:56 | Inpatient (IN) | payer MEDICARE ==
[~2022-09-27] VITALS: Ht 152.4 cm; Wt 71.4 kg
[2022-09-27 12:52] LABS: BASOPHILS ABSOLUTE AUTO 0.03 K/mm3 (0.00-0.23); BASOPHILS PERCENT AUTO 0 % (0-2); EOSINOPHILS ABSOLUTE AUTO 0.29 K/mm3 (0.00-0.68); EOSINOPHILS PERCENT AUTO 3 % (0-6); Hematocrit 27.6 % (33.0-51.0); Hemoglobin 8.3 g/dL (11.5-16.0); IMMATURE GRAN ABSOLUTE AUTO 0.04 K/mm3 (0.00-0.10); IMMATURE GRAN PERCENT AUTO 0 % (0-1); LYMPHOCYTES ABSOLUTE AUTO 1.32 K/mm3 (0.84-5.20); LYMPHOCYTES PERCENT AUTO 15 % (21-46); MONOCYTES ABSOLUTE AUTO 0.65 K/mm3 (0.16-1.47); MONOCYTES PERCENT AUTO 7 % (4-13); Mean Corpuscular HGB 29.1 pg (26.0-34.0); Mean Corpuscular HGB Conc 30.1 g/dL (31.5-36.5); Mean Corpuscular Volume 97 fL (80-100); Mean Platelet Volume 10.2 fL (9.1-12.4); NEUTROPHILS ABSOLUTE AUTO 6.79 K/mm3 (1.96-9.15); NEUTROPHILS PERCENT AUTO 75 % (41-73); Platelet Count 232 K/mm3 (150-400); RDW Coefficient Variation 16.7 % (11.7-14.2); RDW Standard Deviation 59.7 fL (35.1-46.3); Red Blood Cell Count 2.85 M/mm3 (3.80-5.20); White Blood Cell Count 9.12 K/mm3 (4.00-11.30)
[2022-09-27 13:14] LABS: Albumin, Blood 2.3 g/dL (3.4-5.0); Albumin/Globulin Ratio 0.5 (0.8-1.8); Bilirubin, Total 0.2 mg/dL (0.1-1.0); Calcium, Blood 8.5 mg/dL (8.5-10.1); Creatinine, Blood 2.35 mg/dL (0.40-1.00); Globulin, Blood 4.4 g/dL (2.2-4.0); Potassium, Blood 4.3 mmol/L (3.5-5.5); Total Protein, Blood 6.7 g/dL (6.4-8.2)
[2022-09-27 15:15] LABS: Source, Urine Clean Catch
[2022-09-27 15:56] LABS: Appearance, Urine Cloudy (Clear); Bilirubin, Urine Neg (Neg); Blood, Urine 2+ (Neg); Glucose Qualitative, Urine Neg (Neg); Ketones, Urine Neg (Neg); Leukocyte Esterase, Urine 3+ (Neg); Nitrite, Urine Neg (Neg); Protein, Urine 2+ (Neg); Urobilinogen, Urine NORM (Normal); pH, Urine 6.5 (5.0-8.0)
[2022-09-27 16:10] LABS: Color, Urine Pale Yellow (P-Yellow)
[2022-09-27 16:14] LABS: Amorphous Light (0-Heavy); Bacteria Many /hpf; Squamous Epithelial Cells Few /hpf (Few); Transitional Epithelial Cells Few /hpf (0-Rare); White Blood Cells, Urine TNTC /hpf (0-5)
[2022-09-27 16:15] LABS: Mucus Light (0-Heavy)
[2022-09-27 23:02] VITALS: BP 107/54
[2022-09-28 03:14] VITALS: BP 128/52
[2022-09-28 05:18] LABS: BASOPHILS ABSOLUTE AUTO 0.03 K/mm3 (0.00-0.23); BASOPHILS PERCENT AUTO 0 % (0-2); EOSINOPHILS ABSOLUTE AUTO 0.41 K/mm3 (0.00-0.68); EOSINOPHILS PERCENT AUTO 5 % (0-6); Hemoglobin 7.8 g/dL (11.5-16.0); IMMATURE GRAN ABSOLUTE AUTO 0.06 K/mm3 (0.00-0.10); IMMATURE GRAN PERCENT AUTO 1 % (0-1); LYMPHOCYTES ABSOLUTE AUTO 1.38 K/mm3 (0.84-5.20); LYMPHOCYTES PERCENT AUTO 18 % (21-46); MONOCYTES ABSOLUTE AUTO 0.68 K/mm3 (0.16-1.47); MONOCYTES PERCENT AUTO 9 % (4-13); Mean Corpuscular HGB 28.9 pg (26.0-34.0); Mean Corpuscular Volume 96 fL (80-100); Mean Platelet Volume 10.4 fL (9.1-12.4); NEUTROPHILS ABSOLUTE AUTO 5.26 K/mm3 (1.96-9.15); NEUTROPHILS PERCENT AUTO 67 % (41-73); Platelet Count 211 K/mm3 (150-400); RDW Coefficient Variation 16.6 % (11.7-14.2); RDW Standard Deviation 57.6 fL (35.1-46.3); White Blood Cell Count 7.82 K/mm3 (4.00-11.30)
[2022-09-28 05:50] LABS: Albumin, Blood 1.9 g/dL (3.4-5.0); Albumin/Globulin Ratio 0.5 (0.8-1.8); Bilirubin, Total 0.2 mg/dL (0.1-1.0); Bun/Creatinine Ratio 25.1 (12.0-20.0); Calcium, Blood 8.3 mg/dL (8.5-10.1); Creatinine, Blood 2.03 mg/dL (0.40-1.00); Globulin, Blood 4.1 g/dL (2.2-4.0); Potassium, Blood 3.9 mmol/L (3.5-5.5)
--- NOTE | 2022-09-28 07:29 | NUR ---
GI PANEL STILL PENDING ON LEELEE THIS MORNING. PATIENT SLEPT WELL AFTER GETTING SETTLED IN UPON ARRIVAL. NS INFUSING AT 75 ML/HR. LARGE MUSHY STOOL AFTER ARRIVAL. PATIENT REQUESTED 2 TYLENOL FOR A HEADACHE WHICH RESOLVED HER DISCOMFORT. PATIENT IS REQUESTING HENSLEY CATHETER BE REMOVED FOR HER COMFORT. URINE IS PINK WITH TISSUE STRANDS AND SEDIMENTS
[2022-09-28 07:34] LABS: Adenovirus F 40/41 Not Detected (NOT DETECT); Astrovirus Not Detected (NOT DETECT); Campylobacter Sp Not Detected (NOT DETECT); Cryptosporidium Not Detected (NOT DETECT); Cyclospora Cayetanensis Not Detected (NOT DETECT); E. Coli O157 Not Detected (NOT DETECT); Entamoeba Histolytica Not Detected (NOT DETECT); Enteroaggregative E. coli-EAEC Not Detected (NOT DETECT); Enteropathogenic E. coli-EPEC Not Detected (NOT DETECT); Enterotoxigenic E. coli-ETEC Not Detected (NOT DETECT); Giardia Lamblia Not Detected (NOT DETECT); Norovirus GI/GII Not Detected (NOT DETECT); Plesiomonas Shigelloides Not Detected (NOT DETECT); Rotavirus A Not Detected (NOT DETECT); Salmonella Sp Not Detected (NOT DETECT); Sapovirus Not Detected (NOT DETECT); Shiga Toxin-prod E. coli-STEC Not Detected (NOT DETECT); Shigella/Enteroin E. coli-EIEC Not Detected (NOT DETECT); Vibrio Cholerae Not Detected (NOT DETECT); Vibrio Sp Not Detected (NOT DETECT); Yersinia Enterocolitica Not Detected (NOT DETECT)
[2022-09-28 07:55] VITALS: BP 103/44
--- NOTE | 2022-09-28 12:00 | NUR ---
CONTACTED THIS RN NOTIFIED OF INCREASED DROWSINESS. INSTRUCTED TO CONTINUE GENTLE HYDRATION OF NS @ 75-SUSPECTED DUE TO UTI. MINI NEURO PUPILS EQUAL 2 BRISK. PT ABLE TO HOLD ARMS OUT, NO DRIFT PRESENT. KNOWS NAME AND , STUTTERING/STAMERING SPEECH.DAUGHTER PRESENT AT BEDSIDE.
--- NOTE | 2022-09-28 12:44 | NUR ---
DAUGHTER @ BEDSIDE PT CHANGE IN MENTATION MUMBLED SPEECH. PLAN TO NOTIFY DR. DAUGHTER CONCERNED STATES THIS IS NOT HER BASELINE
[2022-09-28 18:42] VITALS: BP 133/68
--- NOTE | 2022-09-28 18:45 | NUR ---
CONTACTED REGUARDING CONTINUED DROWSINESS PT UNABLE TO LIFT ARMS, VSS. DAUGHTER AT BEDSIDE CONCERNED W/ MENTATION. THIS RN CALLED W/ CONCERN OF HEM. DUE TO 7.4 @ 0400 AND PINK URINE T/O SHIFT. PLANS TO ASSESS AND REPEAT H&H.
[2022-09-28 19:18] LABS: Hematocrit 25.3 % (33.0-51.0); Hemoglobin 7.7 g/dL (11.5-16.0)
--- NOTE | 2022-09-28 19:32 | NUR ---
SHIFT SUMMARY PT DROWSY, ORIENTED TO SELF T/O SHIFT. PT SLEEPING COMFORTABLY IN BED. FAMILY IN TO SEE PT T/O SHIFT. HENSLEY IN PLACE, DRAINING PINK URINE W/ SEDIMENT. TOLERATED BREAKFAST, SLEPT THROUGH LUNCH AND DINNER. AC&HS CHECKS WNL. CALL LIGHT W/IN REACH. CDIFF NEG.
--- NOTE | 2022-09-28 19:37 | NUR ---
hemaglobin drawn at 191 was 7.7, previous this AM was 7.8 Patient woke easily to loud voice, spoke clearly and and answered questions appropriately Bedside CBG was 87 at 1930. Encouraged patient to think about what she would like to eat or drink as she has nad no food since breakfast. Bed in lowest position, locked with call light within reach and alarm set. will continue to monitor and notify Dr. Roach of changes.
[2022-09-28 19:57] VITALS: BP 124/47
[2022-09-29 03:26] VITALS: BP 122/56
[2022-09-29 04:35] LABS: Hematocrit 26.3 % (33.0-51.0); Hemoglobin 7.8 g/dL (11.5-16.0); Mean Corpuscular HGB Conc 29.7 g/dL (31.5-36.5); Mean Corpuscular Volume 98 fL (80-100); Mean Platelet Volume 10.2 fL (9.1-12.4); Platelet Count 209 K/mm3 (150-400); RDW Coefficient Variation 16.9 % (11.7-14.2); RDW Standard Deviation 60.5 fL (35.1-46.3); Red Blood Cell Count 2.69 M/mm3 (3.80-5.20)
[2022-09-29 04:55] LABS: Magnesium, Blood 1.8 mg/dL (1.6-2.4)
--- NOTE | 2022-09-29 04:56 | NUR ---
PATIENT HAS CONTINUED TO SLEEP THROUGH THE SHIFT. SHE WAKES TO LOUD VOICE, AND IS APPROPRIATE ONCE SHE IS GIVEN A CHANCE TO WAKE UP. SHE IS DRINKING WITHOUT DIFFICULTY AND MANAGED TO EAT A WHOLE PUDDING CUP AND DRINK A GLASS OF JUICE PRIOR TO HS. PLEASE NOTE THAT WITHOUT A SUFFICIENT AMOUNT OF STIMULATION AFTER WAKING, LEELEE WAKES INITIALLY SLURRING HER SPEECH AND ALSO ONLY PARTIALLY ORIENTEDTO SITUATION. ONCE SHE'D HAD 3-5 MINUTES, HER SPEECH CLEARED AND BECAME MORE AUDIBLE. ASKED IF SHE WAS FEELING ILL OR WAS IN PAIN, LEELEE RESPONDED, "NO, I'M JUST REALLY TIRED.' VITAL SIGNS REMAINED STABLE. HGB THIS MORNING WAS 7.8, UP FROM 7.7 STILL AWAITING RESULTS OF CHEM PANEL
[2022-09-29 05:36] LABS: Alanine Aminotransfer (ALT/SGP 20 U/L (12-78); Albumin, Blood 1.8 g/dL (3.4-5.0); Albumin/Globulin Ratio 0.5 (0.8-1.8); Alk Phos 86 U/L (50-136); Anion Gap Unable to Calculate mmol/L (6-16); Aspartate Aminotrans (AST/SGOT 15 U/L (12-37); Bilirubin, Total 0.1 mg/dL (0.1-1.0); Blood Urea Nitrogen 38 mg/dL (8-24); Bun/Creatinine Ratio 24.4 (12.0-20.0); CO2, Blood 25 mmol/L (21-32); Calcium, Blood 8.1 mg/dL (8.5-10.1); Chloride, Blood 114 mmol/L (98-108); Creatinine, Blood 1.56 mg/dL (0.40-1.00); Globulin, Blood 3.9 g/dL (2.2-4.0); Glomerular Filtration Rate 32 (60-); Glucose, Blood 109 mg/dL (70-99); Phosphorus, Blood 2.8 mg/dL (2.5-4.9); Potassium, Blood 4.1 mmol/L (3.5-5.5); Sodium, Blood 138 mmol/L (136-145); Total Protein, Blood 5.7 g/dL (6.4-8.2)
[2022-09-29 07:30] VITALS: BP 137/63
--- NOTE | 2022-09-29 16:09 | NUR ---
SHIFT SUMMARY PT A&OX4 AND IN PLEASENT MOOD T/O SHIFT. FAMILY IN TO SEE PT. LIGHT YELLOW URINE HENSLEY IN PLACE FLOWING TO GRAVITY, PLAN TO DC PER DR. KNAPP VERBAL ORDER TO ENSURE PROPER VOIDS PRE DC. PROBABLE DC TOMORROW. CALL LIGHT W/IN REACH. TOLERATING PO INTAKE WELL, GLUCOSE WNL. VSS. ONE LOOSE STOOL REPORTED TO THIS SHIFT. UP TO BSC, 1X
[2022-09-29 16:52] VITALS: BP 121/51
[2022-09-29 19:52] VITALS: BP 118/55
--- NOTE | 2022-09-29 21:11 | NUR ---
PHYSICIAN COMMUNICATION CONTACTED DR PLEITEZ TO NOTIFY HIM THAT THE PATIENT'S BLOOD SUGAR WAS 370 AND THAT SHE DID NOT HAVE ANY HS COVERAGE. ALSO INFORMED HIM THAT THE PATIENT'S BLOOD SUGARS ARE TYPICALLY WITHIN A NORMAL RANGE AND THAT SHE ATE A DOUGHNUT AROUND DINNER TIME WHICH IS WHEN IT WAS NOTED THAT HER BLOOD SUGAR WAS INCREASING. NO ORDERS GIVEN.
[2022-09-30 04:53] VITALS: BP 144/62
[2022-09-30 05:11] LABS: Hemoglobin 7.7 g/dL (11.5-16.0); Mean Corpuscular HGB 29.4 pg (26.0-34.0); Mean Corpuscular HGB Conc 30.8 g/dL (31.5-36.5); Mean Corpuscular Volume 95 fL (80-100); Mean Platelet Volume 10.3 fL (9.1-12.4); Platelet Count 198 K/mm3 (150-400); RDW Coefficient Variation 16.9 % (11.7-14.2); RDW Standard Deviation 58.9 fL (35.1-46.3); Red Blood Cell Count 2.62 M/mm3 (3.80-5.20); White Blood Cell Count 7.25 K/mm3 (4.00-11.30)
[2022-09-30 05:39] LABS: Bun/Creatinine Ratio 22.9 (12.0-20.0); Calcium, Blood 8.2 mg/dL (8.5-10.1); Creatinine, Blood 1.53 mg/dL (0.40-1.00); Potassium, Blood 4.4 mmol/L (3.5-5.5)
--- NOTE | 2022-09-30 05:53 | NUR ---
SHIFT SUMMARY PATIENT ALERT AND ORIENTED. HAD NO COMPLAINTS OF PAIN OR SHORTNESS OF BREATH. VITAL SIGNS STABLE. PATIENT HAD HENSLEY CATHETER REMOVED ON DAY SHIFT, SATURATED HER BRIEF OVERNIGHT AND HAD POST VOID BLADDER SCAN OF 236. NO ACUTE ISSUES NOTED OVERNIGHT. CALL LIGHT WITHIN REACH.
[2022-09-30 07:42] VITALS: BP 135/62
[2022-09-30] MEDS ORDERED: VISBIOME 112.51 EACH PO (13:21)
[2022-09-30] MEDS ORDERED: NYSTATIN15 GM TOP (13:22)
[2022-09-30] MEDS ORDERED: SULTRIDS PO (13:24)
== END 2022-09-30 16:06 | disposition home health service (06) | DRG 683 ==
LOC: ER 11:56 → MEDS 20:18 → ENPENDDIS 09-30 13:02 → MEDS 09-30 16:06
PROVIDERS: Family Medicine; Student in an Organized Health Care Education/Training Program; ADMIT Internal Medicine
PROC: 0T9B70Z Drainage of Bladder with Drainage Device, Via Natural or Artificial Opening (ICD-10-PCS; principal; 2022-09-28)
DX: N17.9 Acute kidney failure, unspecified (principal); E87.1 Hypo-osmolality and hyponatremia; I13.0 Hypertensive heart and chronic kidney disease with heart failure and stage 1 through stage 4 chronic kidney disease, or unspecified chronic kidney disease; N39.0 Urinary tract infection, site not specified; I50.22 Chronic systolic (congestive) heart failure; K52.9 Noninfective gastroenteritis and colitis, unspecified; E78.5 Hyperlipidemia, unspecified; M10.9 Gout, unspecified; N18.32 Chronic kidney disease, stage 3b; E11.22 Type 2 diabetes mellitus with diabetic chronic kidney disease; E86.0 Dehydration; D63.1 Anemia in chronic kidney disease; Z96.651 Presence of right artificial knee joint; Z95.5 Presence of coronary angioplasty implant and graft; Z90.49 Acquired absence of other specified parts of digestive tract; Z90.710 Acquired absence of both cervix and uterus; Z79.4 Long term (current) use of insulin; Z79.02 Long term (current) use of antithrombotics/antiplatelets; Z79.82 Long term (current) use of aspirin; Z79.899 Other long term (current) drug therapy
CPT/HCPCS: 36415; 51702; 51798; 74176; 80048; 80053; 81001; 82947; 83735; 84100; 85014; 85018; 85025; 85027; 87077; 87086; 87186; 87507; 94760; 96365-59; 96372; 96376; 97162; 97530; 99285-25; A9270; G0378; J0696; J1650; J7030

== ENCOUNTER → 2022-11-08 | Outpatient (CLI) | payer MEDICARE ==
[~2022-11-08] MED LIST changes: +NYSTATIN15 GM TOP; +SULTRIDS PO; +VISBIOME 112.51 EACH PO
== END | disposition home or self-care (01) ==
LOC: LAB SHORT 14:15
DX: N39.0 Urinary tract infection, site not specified (principal)
CPT/HCPCS: 87077; 87086; 87186

== ENCOUNTER 2022-11-15 18:31 | Inpatient (IN) | payer MEDICARE ==
[~2022-11-15] VITALS: Ht 152.4 cm; Wt 78.3 kg
[2022-11-15 19:44] LABS: Source, Urine Clean Catch
[2022-11-15 19:51] LABS: Base Excess Venous 16.7 mmol/L; Bicarbonate Venous 38.3 mmol/L (24.0-30.0); PCO2 Venous 52.4 mmHg (38-42); pH Blood Venous 7.49 (7.34-7.37)
[2022-11-15 19:53] LABS: BASOPHILS ABSOLUTE AUTO 0.04 K/mm3 (0.00-0.23); BASOPHILS PERCENT AUTO 0 % (0-2); EOSINOPHILS ABSOLUTE AUTO 0.13 K/mm3 (0.00-0.68); EOSINOPHILS PERCENT AUTO 1 % (0-6); Hematocrit 29.1 % (33.0-51.0); Hemoglobin 8.9 g/dL (11.5-16.0); IMMATURE GRAN ABSOLUTE AUTO 0.04 K/mm3 (0.00-0.10); IMMATURE GRAN PERCENT AUTO 0 % (0-1); LYMPHOCYTES PERCENT AUTO 13 % (21-46); MONOCYTES ABSOLUTE AUTO 0.74 K/mm3 (0.16-1.47); MONOCYTES PERCENT AUTO 6 % (4-13); Mean Corpuscular HGB 30.1 pg (26.0-34.0); Mean Corpuscular HGB Conc 30.6 g/dL (31.5-36.5); Mean Corpuscular Volume 98 fL (80-100); Mean Platelet Volume 9.9 fL (9.1-12.4); NEUTROPHILS ABSOLUTE AUTO 9.36 K/mm3 (1.96-9.15); NEUTROPHILS PERCENT AUTO 79 % (41-73); Platelet Count 360 K/mm3 (150-400); RDW Coefficient Variation 16.5 % (11.7-14.2); RDW Standard Deviation 59.7 fL (35.1-46.3); Red Blood Cell Count 2.96 M/mm3 (3.80-5.20); White Blood Cell Count 11.81 K/mm3 (4.00-11.30)
[2022-11-15 20:01] LABS: Bilirubin, Urine Neg (Neg); Blood, Urine 3+ (Neg); Glucose Qualitative, Urine Neg (Neg); Ketones, Urine Neg (Neg); Leukocyte Esterase, Urine 3+ (Neg); Nitrite, Urine Neg (Neg); Protein, Urine 3+ (Neg); Urobilinogen, Urine NORM (Normal)
[2022-11-15 20:07] LABS: Appearance, Urine Cloudy (Clear); Color, Urine Yellow (P-Yellow)
[2022-11-15 20:08] LABS: Bacteria Many /hpf; Red Blood Cells, Urine 0-2 /hpf (0-2); Squamous Epithelial Cells Few /hpf (Few); White Blood Cells, Urine TNTC /hpf (0-5)
[2022-11-15 20:11] LABS: Albumin, Blood 2.7 g/dL (3.4-5.0); Albumin/Globulin Ratio 0.6 (0.8-1.8); Bilirubin, Total 0.3 mg/dL (0.1-1.0); Bun/Creatinine Ratio 13.2 (12.0-20.0); Calcium, Blood 8.8 mg/dL (8.5-10.1); Creatinine, Blood 1.89 mg/dL (0.40-1.00); Globulin, Blood 4.2 g/dL (2.2-4.0); Potassium, Blood 3.5 mmol/L (3.5-5.5); Total Protein, Blood 6.9 g/dL (6.4-8.2)
[2022-11-15 23:34] VITALS: BP 147/70
[2022-11-16 00:57] VITALS: BP 134/57
--- NOTE | 2022-11-16 02:40 | NUR ---
ADMIT NOTE 87 YR OLD FEMALE ADMITTED TO FLOOR FROM THE ED EARLIER WITH DX OF CHF EXACERBATION AND POSSIBLE UTI. ED RN REPORTED PT HAD REPORTEDLY GONE TO URGENT CARE ABOUT A WEEK AGO FOR POSSIBLE UTI AND WAS PLACED ON ABX FOR ABOUT 6 DAYS, THEN MED NOT EFFECTIVE AND NEEDED TO CHANGE IT, BUT WAS FEELING NAUSEATED AND WEAK. DAUGHTER BROUGHT PT TO HOSPITAL FOR FOLLOW UP. PT ALERT AND ORIENTED. VSS. NOTE SWELLING OF BLE AND BRUISES OF INTERMITTENT PLACES OF HER BODY, (ARMS, LEFT LEG AND BUTTOCKS). ORIENTED TO USE OF CALL LIGHT, CALL LIGHT IN REACH. RAILS UP X 3 FOR SAFETY. BED ALARM ON.
[2022-11-16 04:41] VITALS: BP 139/77
--- NOTE | 2022-11-16 04:47 | NUR ---
CLERK GENERAL SUMMARY VSS. REQUESTED AND RECEIVED HS MEDS PRIOR TO SLEEP SHE VOICED HAD NOT TAKEN THEM AT HOME PRIOR TO COMING TO THE HOSPITAL. HOB ELEVATED. HAS BEEN RESTING QUIETLY AT INTERVALS. MED TELE SINUS RHYTHM AT 98. PURECoinapultCK URINE DEVICE IN USE. ZOFRAN GIVEN FOR NAUSEA. CALL LIGHT IN REACH AND BED RAILS UP X 3 FOR SAFETY. WILL CONTINUE TO MONITOR
[2022-11-16 05:18] LABS: Bun/Creatinine Ratio 13.7 (12.0-20.0); Calcium, Blood 8.4 mg/dL (8.5-10.1); Creatinine, Blood 1.9 mg/dL (0.40-1.00); Potassium, Blood 3.5 mmol/L (3.5-5.5)
[2022-11-16 07:23] VITALS: BP 139/59
--- NOTE | 2022-11-16 08:26 | NUR ---
BLOOD SUGAR BFAST BLOOD SUGAR RESULTED AT 63. OJ GIVEN & BFAST GIVEN. PT ALSO C/O MILD NAUSEA AND REQUESTED ZOFRAN IN ORDER TO EAT BFAST & KEEP IT DOWN. PT NOW SITTING UP IN BED EATING.
[2022-11-16 16:52] VITALS: BP 135/59
--- NOTE | 2022-11-16 18:34 | NUR ---
SHIFT SUMMARY PT A&O X 4. VSS. BLOOD SUGARS COVERED PER EMAR. IV LASIX GIVEN THIS SHIFT WITH NO UO VIA PUREWICK, BLADDER SCAN DONE SHOWING >400MLS IN BLADDER. PLACED CALL TO DR. BORREGO, ORDERS RECEIVED FOR A F/C. 14FR F/C PLACED USING STERILE TECHNIQUE WITH IMMEDIATE RETURN OF CLOUDY PALE YELLOW URINE. 800MLS TOTAL UO FOR THIS SHIFT. APPETITE IS GOOD. PT SITS ON EDGE OF BED FOR MEALS. MEDICATED ONCE FOR C/O NAUSEA WITH NO MORE C/O OF NAUSEA THIS SHIFT. CALL LIGHT WITHIN REACH, BED IN LOW POSITION. IS ABLE TO MAKE HER NEEDS KNOWN. REPORT TO FABI MCCOY
[2022-11-16 19:06] VITALS: BP 147/63
--- NOTE | 2022-11-17 04:06 | NUR ---
SALES AND MARKETING VICE PRESIDENT SUMMARY VSS. ALERT AND ORIENTED AT SHIFT COMMENCE. HENSLEY DRAINING YELLOW. NO C/O CHEST PAIN. MED TELE SINUS RHYTHM IN THE 80'S. ACCU CHECK 146. DENIED DISTRESS. AFFECT CHEERFUL SHE CONVERSED WITH NURSE. HAS BEEN RESTING QUIETLY WITH FEW INTERRUPTIONS. CALL LIGHT IN REACH. WILL CONTINUE TO MONITOR.
[2022-11-17 04:35] VITALS: BP 126/84
[2022-11-17 05:25] LABS: Albumin, Blood 2.3 g/dL (3.4-5.0); Anion Gap 6 mmol/L (6-16); Blood Urea Nitrogen 27 mg/dL (8-24); Bun/Creatinine Ratio 13.7 (12.0-20.0); CO2, Blood 35 mmol/L (21-32); Chloride, Blood 101 mmol/L (98-108); Creatinine, Blood 1.97 mg/dL (0.40-1.00); Glomerular Filtration Rate 24 (60-); Glucose, Blood 77 mg/dL (70-99); Magnesium, Blood 1.9 mg/dL (1.6-2.4); Phosphorus, Blood 3.4 mg/dL (2.5-4.9); Potassium, Blood 3.7 mmol/L (3.5-5.5); Sodium, Blood 142 mmol/L (136-145)
[2022-11-17 07:31] VITALS: BP 131/59
[2022-11-17 15:11] VITALS: BP 133/66
--- NOTE | 2022-11-17 17:18 | NUR ---
SHIFT SUMMARY PT AOX4, CONFUSED AT TIMES BUT OVERALL ORIENTED. SHE HAS A HENSLEY PLACED AND IT IS PATENT. AN ECHO WAS COMPLETED ON HER THIS SHIFT, AWAITING RESULTS. PT IS COOPERATIVE AND MAKES HER NEEDS KNOWN. HER DAUGHTER WAS AT THE BS THIS SHIFT. SHE ALSO RECEIVED A BED BATH BY THE ELECTROFORMER THIS SHIFT. PT HAS HAD NO C/O P/CP/SOB/N/V. SHE HAD NO COMPLAINTS OF CHEST PRESSURE OR TIGHTNESS. CALL LIGHT IS WITHIN REACH, BEDIN THE LOWEST POSITION. WILL REPORT TO ONCOMING NURSE.
[2022-11-17 20:08] VITALS: BP 132/60
[2022-11-18 05:28] VITALS: BP 139/63
[2022-11-18 07:41] VITALS: BP 132/70
[2022-11-18] MEDS ORDERED: FURO20 PO (14:03)
[2022-11-18 15:48] VITALS: BP 138/69
--- NOTE | 2022-11-18 16:31 | NUR ---
DISCHARGE NOTE PT DISCHARGED TO HOME WITH HER DAUGHTER, PICKED UP BY HER DAUGHTER. TAKEN TO THEIR VEHICLE BY WHEELCHAIR. IV REMOVED. DISCHARGE INFORMATION AND EDUCATION PROVIDED. MEDICATIONS FAXED TO THE PHARMACY OF THEIR CHOICE.
== END 2022-11-18 16:12 | disposition home or self-care (01) | DRG 291 ==
LOC: ER 18:31 → MEDS 21:28 → ENPENDDIS 11-18 13:30 → MEDS 11-18 16:12
PROVIDERS: Emergency Medicine; Internal Medicine; Nurse Practitioner Acute Care; ADMIT Student in an Organized Health Care Education/Training Program
DX: I13.0 Hypertensive heart and chronic kidney disease with heart failure and stage 1 through stage 4 chronic kidney disease, or unspecified chronic kidney disease (principal); I50.23 Acute on chronic systolic (congestive) heart failure; J96.01 Acute respiratory failure with hypoxia; N39.0 Urinary tract infection, site not specified; E11.22 Type 2 diabetes mellitus with diabetic chronic kidney disease; N18.30 Chronic kidney disease, stage 3 unspecified; I25.10 Atherosclerotic heart disease of native coronary artery without angina pectoris; D63.1 Anemia in chronic kidney disease; E78.5 Hyperlipidemia, unspecified; M10.9 Gout, unspecified; R58 Hemorrhage, not elsewhere classified; J44.9 Chronic obstructive pulmonary disease, unspecified; B96.89 Other specified bacterial agents as the cause of diseases classified elsewhere; I34.0 Nonrheumatic mitral (valve) insufficiency; Z79.82 Long term (current) use of aspirin; Z79.51 Long term (current) use of inhaled steroids; Z79.02 Long term (current) use of antithrombotics/antiplatelets; Z79.01 Long term (current) use of anticoagulants; Z79.84 Long term (current) use of oral hypoglycemic drugs; Z79.899 Other long term (current) drug therapy; Z79.4 Long term (current) use of insulin; Z96.651 Presence of right artificial knee joint; Z90.710 Acquired absence of both cervix and uterus; Z90.49 Acquired absence of other specified parts of digestive tract; Z95.5 Presence of coronary angioplasty implant and graft
CPT/HCPCS: 36415; 71045; 80048; 80053; 80069; 81001; 82803; 82947; 83735; 83880; 84484; 85025; 93005; 93010; 94760; 96374; 96375; 99284-25; A9270; C8929; J1650; J1815; J1940; J2405; Q9957

== ENCOUNTER 2022-11-22 13:37 | Emergency (ER) | payer MEDICARE ==
[~2022-11-22] VITALS: Ht 152.4 cm; Wt 77.1 kg
[~2022-11-22 13:37] MED LIST changes: +FURO20 PO
[2022-11-22 14:29] LABS: Albumin, Blood 2.7 g/dL (3.4-5.0); Albumin/Globulin Ratio 0.7 (0.8-1.8); Bilirubin, Total 0.3 mg/dL (0.1-1.0); Bun/Creatinine Ratio 14.7 (12.0-20.0); Calcium, Blood 9.2 mg/dL (8.5-10.1); Creatinine, Blood 1.77 mg/dL (0.40-1.00); Globulin, Blood 3.7 g/dL (2.2-4.0); Potassium, Blood 3.9 mmol/L (3.5-5.5); Total Protein, Blood 6.4 g/dL (6.4-8.2)
[2022-11-22 14:35] LABS: BASOPHILS ABSOLUTE AUTO 0.03 K/mm3 (0.00-0.23); BASOPHILS PERCENT AUTO 0 % (0-2); EOSINOPHILS ABSOLUTE AUTO 0.17 K/mm3 (0.00-0.68); EOSINOPHILS PERCENT AUTO 2 % (0-6); Hematocrit 27.9 % (33.0-51.0); Hemoglobin 8.7 g/dL (11.5-16.0); IMMATURE GRAN ABSOLUTE AUTO 0.04 K/mm3 (0.00-0.10); IMMATURE GRAN PERCENT AUTO 0 % (0-1); LYMPHOCYTES ABSOLUTE AUTO 2.06 K/mm3 (0.84-5.20); LYMPHOCYTES PERCENT AUTO 22 % (21-46); MONOCYTES ABSOLUTE AUTO 0.58 K/mm3 (0.16-1.47); MONOCYTES PERCENT AUTO 6 % (4-13); Mean Corpuscular HGB 30.2 pg (26.0-34.0); Mean Corpuscular HGB Conc 31.2 g/dL (31.5-36.5); Mean Corpuscular Volume 97 fL (80-100); Mean Platelet Volume 9.9 fL (9.1-12.4); NEUTROPHILS ABSOLUTE AUTO 6.62 K/mm3 (1.96-9.15); NEUTROPHILS PERCENT AUTO 70 % (41-73); Platelet Count 346 K/mm3 (150-400); RDW Coefficient Variation 16.6 % (11.7-14.2); RDW Standard Deviation 57.8 fL (35.1-46.3); Red Blood Cell Count 2.88 M/mm3 (3.80-5.20)
[2022-11-22 16:24] LABS: Source, Urine Straight Cath
[2022-11-22 16:33] LABS: Appearance, Urine Clear (Clear); Bilirubin, Urine Neg (Neg); Blood, Urine Neg (Neg); Color, Urine Yellow (P-Yellow); Glucose Qualitative, Urine Neg (Neg); Ketones, Urine Neg (Neg); Leukocyte Esterase, Urine Neg (Neg); Nitrite, Urine Neg (Neg); Protein, Urine 2+ (Neg); Urobilinogen, Urine NORM (Normal)
[2022-11-22 17:35] LABS: Red Blood Cells, Urine 0-2 /hpf (0-2); Squamous Epithelial Cells Few /hpf (Few)
[2022-11-22 17:36] LABS: Bacteria Few /hpf
[2022-11-22 19:21] VITALS: BP 131/66
== END 2022-11-22 19:45 | disposition home or self-care (01) ==
LOC: ER 13:37
PROVIDERS: Emergency Medicine
DX: R11.2 Nausea with vomiting, unspecified (principal); R60.0 Localized edema; I50.9 Heart failure, unspecified; Z79.899 Other long term (current) drug therapy; Z79.82 Long term (current) use of aspirin; Z79.4 Long term (current) use of insulin; E11.22 Type 2 diabetes mellitus with diabetic chronic kidney disease; I13.0 Hypertensive heart and chronic kidney disease with heart failure and stage 1 through stage 4 chronic kidney disease, or unspecified chronic kidney disease; E78.5 Hyperlipidemia, unspecified; M10.9 Gout, unspecified; N18.9 Chronic kidney disease, unspecified; I25.10 Atherosclerotic heart disease of native coronary artery without angina pectoris
CPT/HCPCS: 71046; 80053; 81001; 85025; J0780; J1790; J2405; P9612

== ENCOUNTER → 2022-12-15 | Outpatient (CLI) | payer MEDICARE | LOC: LAB 11:24 → LAB SHORT 11:24 | DX: R30.0 Dysuria (principal) | CPT/HCPCS: 87077; 87086; 87186 ==

== ENCOUNTER 2023-01-28 21:47 | Inpatient (IN) | payer MEDICARE ==
[~2023-01-28] VITALS: Ht 162.6 cm; Wt 80.3 kg
[~2023-01-28 21:47] MED LIST changes: -ASPIR 8181 M1; +ASPIR 8181 M1 PO
[2023-01-28 22:07] LABS: BASOPHILS ABSOLUTE AUTO 0.02 K/mm3 (0.00-0.23); BASOPHILS PERCENT AUTO 0 % (0-2); EOSINOPHILS ABSOLUTE AUTO 0.17 K/mm3 (0.00-0.68); EOSINOPHILS PERCENT AUTO 2 % (0-6); Hematocrit 26.3 % (33.0-51.0); Hemoglobin 8.6 g/dL (11.5-16.0); IMMATURE GRAN ABSOLUTE AUTO 0.02 K/mm3 (0.00-0.10); IMMATURE GRAN PERCENT AUTO 0 % (0-1); LYMPHOCYTES ABSOLUTE AUTO 1.92 K/mm3 (0.84-5.20); LYMPHOCYTES PERCENT AUTO 20 % (21-46); MONOCYTES ABSOLUTE AUTO 0.79 K/mm3 (0.16-1.47); MONOCYTES PERCENT AUTO 8 % (4-13); Mean Corpuscular HGB 29.7 pg (26.0-34.0); Mean Corpuscular HGB Conc 32.7 g/dL (31.5-36.5); Mean Corpuscular Volume 91 fL (80-100); Mean Platelet Volume 10.9 fL (9.1-12.4); NEUTROPHILS ABSOLUTE AUTO 6.95 K/mm3 (1.96-9.15); NEUTROPHILS PERCENT AUTO 70 % (41-73); Platelet Count 237 K/mm3 (150-400); RDW Coefficient Variation 16.4 % (11.7-14.2); RDW Standard Deviation 54.1 fL (35.1-46.3); White Blood Cell Count 9.87 K/mm3 (4.00-11.30)
[2023-01-28 22:17] LABS: Source, Urine Straight Cath
[2023-01-28 22:25] LABS: Albumin, Blood 2.4 g/dL (3.4-5.0); Albumin/Globulin Ratio 0.6 (0.8-1.8); Bilirubin, Total 0.2 mg/dL (0.1-1.0); Bun/Creatinine Ratio 20.1 (12.0-20.0); Calcium, Blood 8.3 mg/dL (8.5-10.1); Creatinine, Blood 3.53 mg/dL (0.40-1.00); Globulin, Blood 3.9 g/dL (2.2-4.0); Magnesium, Blood 2.4 mg/dL (1.6-2.4); Potassium, Blood 4.1 mmol/L (3.5-5.5); Total Protein, Blood 6.3 g/dL (6.4-8.2)
[2023-01-28 22:38] LABS: Appearance, Urine Turbid (Clear); Bilirubin, Urine Neg (Neg); Blood, Urine 3+ (Neg); Color, Urine Yellow (P-Yellow); Glucose Qualitative, Urine Neg (Neg); Ketones, Urine Neg (Neg); Leukocyte Esterase, Urine 3+ (Neg); Nitrite, Urine Neg (Neg); Protein, Urine 3+ (Neg); Urobilinogen, Urine NORM (Normal); pH, Urine 6.5 (5.0-8.0)
[2023-01-28 22:47] LABS: Bacteria Many /hpf; Red Blood Cells, Urine 0-2 /hpf (0-2); Squamous Epithelial Cells Not Seen /hpf (Few); White Blood Cells, Urine TNTC /hpf (0-5)
[2023-01-28 22:59] LABS: Influenza A, PCR NEGATIVE (NEGATIVE); Influenza B, PCR NEGATIVE (NEGATIVE); Resp Syncytial Virus, PCR NEGATIVE (NEGATIVE); SARS-Cov-2 (COVID-19) PCR, MMC NEGATIVE (NEGATIVE)
[2023-01-29] VITALS (48 sets, daily range): BP systolic 63–135; BP diastolic 33–100
[2023-01-29 05:22] LABS: BASOPHILS ABSOLUTE AUTO 0.01 K/mm3 (0.00-0.23); BASOPHILS PERCENT AUTO 0 % (0-2); EOSINOPHILS ABSOLUTE AUTO 0.05 K/mm3 (0.00-0.68); EOSINOPHILS PERCENT AUTO 1 % (0-6); Hematocrit 24.8 % (33.0-51.0); IMMATURE GRAN ABSOLUTE AUTO 0.02 K/mm3 (0.00-0.10); IMMATURE GRAN PERCENT AUTO 0 % (0-1); LYMPHOCYTES ABSOLUTE AUTO 1.57 K/mm3 (0.84-5.20); LYMPHOCYTES PERCENT AUTO 19 % (21-46); MONOCYTES ABSOLUTE AUTO 0.29 K/mm3 (0.16-1.47); MONOCYTES PERCENT AUTO 4 % (4-13); Mean Corpuscular HGB 29.7 pg (26.0-34.0); Mean Corpuscular HGB Conc 32.3 g/dL (31.5-36.5); Mean Corpuscular Volume 92 fL (80-100); Mean Platelet Volume 10.8 fL (9.1-12.4); NEUTROPHILS PERCENT AUTO 77 % (41-73); Platelet Count 217 K/mm3 (150-400); RDW Coefficient Variation 16.4 % (11.7-14.2); RDW Standard Deviation 55.1 fL (35.1-46.3); Red Blood Cell Count 2.69 M/mm3 (3.80-5.20); White Blood Cell Count 8.34 K/mm3 (4.00-11.30)
[2023-01-29 05:47] LABS: Albumin, Blood 2.6 g/dL (3.4-5.0); Albumin/Globulin Ratio 0.8 (0.8-1.8); Bilirubin, Total 0.2 mg/dL (0.1-1.0); Bun/Creatinine Ratio 21.1 (12.0-20.0); Calcium, Blood 7.9 mg/dL (8.5-10.1); Creatinine, Blood 3.32 mg/dL (0.40-1.00); Globulin, Blood 3.4 g/dL (2.2-4.0)
--- NOTE | 2023-01-29 06:25 | NUR ---
SHIFT SUMMARY PT AND DAUGHTER ORIENTED TO ROOM. PT HAD SEVERAL EPISODES OF INCONTINENT DIARRHEA. PT ORIENTED AT TIME OF ASSESSMENT, HOWEVER SEEMED HESITANT ON THE DATE BUT WAS CORRECT. NO C/O PAIN. PT NPO WITH IVF RUNNING. YEASTY REDNESS NOTED UNDER BILATERAL BREASTS, AND IN GROIN FOLDS, REDNESS FROM MOISTURE WAS NOTED IN BETWEEN BUTTOCKS LIKELY FROM FREQUENT DIARRHEA. PT HAD SCATTERED BRUISING AND A SCAB ON EACH SOARES Q1H FIRE SAFETY CHECKS COMPLETED, NO IGNITION SOURCES FOUND.
--- NOTE | 2023-01-29 09:00 | NUR ---
MORNING VS COMPLETED WITH BP LOW AND TEMP ELEVATED. MD NOTIFIED AND TYLENOL ORDERED AND A FLUID BOLUS. BOTH GIVEN. WILL REASSESS EFFECTIVENESS. HARD TO ROUSE BUT WAKES ENOUGH TO TAKE TYLENOL AND MORNING MEDS. SEMGLEE INSULIN HELD UNTIL NOON CHEMBG AND NPO STATUS. TOO LETHARGIC TO EAT AT THIS TIME. R ARM WRAPPED DUE TO SKIN TEAR REPORTED OCCURING DURING INITIAL VISIT TO ED.
--- NOTE | 2023-01-29 11:00 | NUR ---
PT VS CHECKED 2 MORE TIMES WITH BP BEING LOWER EACH TIME AND 500ML FLUID BOLUS GIVEN BETWEEN EACH. MD NOTIFIED OF CONDITION AND PTS INCREASING LETHARGY. ORDERS TO TRANSFER TO ICU.
--- NOTE | 2023-01-29 11:08 | NUR ---
REPORT CALLED TO LAUNDRY HOUSEKEEPING AIDE, PT TO GO TO ICU 3, MESSAGE LEFT ON DAUGHTER ANSWERING MACHINE
--- NOTE | 2023-01-29 11:27 | NUR ---
SPOKE WITH PT'S SON ON THE PHONE
--- NOTE | 2023-01-29 11:40 | NUR ---
Assumed care of pt on arrival to ICU 3 at 1115 from room 362. Pt transferred to ICU for vasopressors due to hypotension refractory to fluid resuscitation. Report received from Pilo MCCOY, prior to pt arrival. She left message for daughter and spoke to son to notify of transfer to higher level of care. On arrival to unit, patient is responsive to verbal stimulus. Opens eyes, maintains eye contact, can answer simple questions and follows commands; however can maintain alertness for only 10-15 seconds. Hypotensive on arrival. Levophed started at 4 mcg/min and then titrated up to 6 mcg/min for persistent hypotension. SpO2 87% on room air. Started on 2 LPM NC. SR per monitor with approx 8 PVCs per minute. LR started per orders. VBG obtained. Pt has swelling to bilat wrist and hands, medical alert bracelet and rings removed. Plan to send these home with family
[2023-01-29 11:49] LABS: Bicarbonate Venous 15.3 mmol/L (24.0-30.0); PCO2 Venous 37.2 mmHg (38-42)
[2023-01-29 11:50] LABS: pH Blood Venous 7.23 (7.34-7.37)
[2023-01-29 12:52] LABS: Hematocrit 24.2 % (33.0-51.0); Hemoglobin 7.9 g/dL (11.5-16.0)
[2023-01-29 13:17] LABS: Bun/Creatinine Ratio 18.3 (12.0-20.0); Calcium, Blood 7.6 mg/dL (8.5-10.1); Creatinine, Blood 3.6 mg/dL (0.40-1.00); Potassium, Blood 3.5 mmol/L (3.5-5.5)
[2023-01-29 13:36] LABS: Adenovirus F 40/41 Not Detected (NOT DETECT); Astrovirus Not Detected (NOT DETECT); Campylobacter Sp Not Detected (NOT DETECT); Cryptosporidium Not Detected (NOT DETECT); Cyclospora Cayetanensis Not Detected (NOT DETECT); E. Coli O157 Not Detected (NOT DETECT); Entamoeba Histolytica Not Detected (NOT DETECT); Enteroaggregative E. coli-EAEC Not Detected (NOT DETECT); Enteropathogenic E. coli-EPEC Not Detected (NOT DETECT); Enterotoxigenic E. coli-ETEC Not Detected (NOT DETECT); Giardia Lamblia Not Detected (NOT DETECT); Norovirus GI/GII Not Detected (NOT DETECT); Plesiomonas Shigelloides Not Detected (NOT DETECT); Rotavirus A Not Detected (NOT DETECT); Salmonella Sp Not Detected (NOT DETECT); Sapovirus Not Detected (NOT DETECT); Shiga Toxin-prod E. coli-STEC Not Detected (NOT DETECT); Shigella/Enteroin E. coli-EIEC Not Detected (NOT DETECT); Vibrio Cholerae Not Detected (NOT DETECT); Vibrio Sp Not Detected (NOT DETECT); Yersinia Enterocolitica Not Detected (NOT DETECT)
[2023-01-29 16:53] LABS: Source, Urine Foley catheter
[2023-01-29 16:56] LABS: Appearance, Urine Cloudy (Clear); Bilirubin, Urine Neg (Neg); Blood, Urine 2+ (Neg); Color, Urine Yellow (P-Yellow); Glucose Qualitative, Urine Neg (Neg); Ketones, Urine Neg (Neg); Leukocyte Esterase, Urine 3+ (Neg); Nitrite, Urine Neg (Neg); Protein, Urine 3+ (Neg); Urobilinogen, Urine NORM (Normal); pH, Urine 6.5 (5.0-8.0)
[2023-01-29 17:07] LABS: Red Blood Cells, Urine TNTC /hpf (0-2); White Blood Cells, Urine TNTC /hpf (0-5)
[2023-01-29 17:08] LABS: Bacteria Many /hpf; Hyaline Casts 0-2 /lpf (0-2); Squamous Epithelial Cells Few /hpf (Few)
--- NOTE | 2023-01-29 17:53 | NUR ---
SUMMARY Neuro: Remains responsive to verbal stimulus. Maintains awakeness for longer up to 5 minutes at a time. Oriented to self and place. Able to answer questions, follow commands, communicate needs. Receptive to education provided. Pupils 3 mm, PERRL. Moves all extremities with equal strength and range of motion. Musc: Total care for all ADLs. Has not been out of bed due to high vasopressor requirements and inability to maintain alertness. Resp: Respirations even and unlabored. SpO2 90% or greater with 2 LPM NC. SpO2 probe to ear as patient is wearing lebanese on fingernails that could not be removed with hospital provided nail lebanese remover. Total care for ADLs at this time. Cardiac: SR per monitor with approx 10 PVCs per minute. Levophed was at 8 mcg/min but has been successfully decreased to 4 mcg/min. Nailbeds are dusky BLE. Pedal and posttibial pulses 1+. Radial pulse 2+. New PICC line this shift, placed to MARQUIS. PIVs removed. GI: Rectal tube in placed with small amount of liquid green output. Specimen sent to lab for GI panel - resulted. Hypoactive BT. No signs of ABD tenderness with palpation. : Schilling catheter placed per v/o Dr Francois for strict measurement of I/O. Temp schilling used. Drained purulent yellow/green turbid urine, odiferous. Skin: Skin tears to R arm, reportedly present ASSOCIATE BROKER. Dressing removed, site cleansed with saline and dressed with mepitel, ABD pads, and kerlex. Photographs obtained for chart. Noted yeast associated redness beneath breast and abdominal folds, order obtained for miconazole powder. Psychosocial: Several family members in to see pt t/o day, including her son, daughter, and sister. Pt's jewelry sent home with daughter.
--- NOTE | 2023-01-29 22:13 | NUR ---
ASSUMED CARE AT 1900 PT SLEEPING AT SHIFT CHANGE; A SON WAS AT BEDSIDE AND LEFT QUICKLY DURING BEDSIDE REPORT. PT IS SOMNULENT AND HAS GENERALIZED WEAKNESS; SHE IS ORIENTED X4 UBT ONLY ALERT TO VRBAL STIMULI; SHE SLEEPS WHEN NOT STIMULATED AND CAN BE CHALLENGING TO AROUSE BUT WHEN MORE AWAKE SHE IS APPROPRIATE. SPO2 >97% ON 2L NC. AFEBRILE. HR 70'S. LEVOPHED INFUSING AT 2MCG/MIN; SEE FLOWSHEET FOR TITRATIONS; SBP 90-100, MAP 65. RECTAL TUBE IN PLACE WITH BROWN LIQUID STOOL. HENSLEY IN PLACE AND DRAINING TO GRAVITY; PURULENT YELLOW/GREEN OUTPUT NOTED. SEE SHIFT ASSESSMENT FOR FULL ASSESSMENT.
[2023-01-30] VITALS (79 sets, daily range): BP systolic 80–158; BP diastolic 31–100
--- NOTE | 2023-01-30 00:48 | NUR ---
UPDATE THE 0000 GLUCOSE CHECK RESULTED AT 54. NEW ORDER PROVIDED FOR THE HYPOGLYCEMIA PROTOCOL. PER PROTOCOL 25ML OF D50 GIVEN IV. 20 MIN AFTER GIVING D50, GLUCOSE RECHECK RESULTED AT 105.
[2023-01-30 04:46] LABS: BASOPHILS ABSOLUTE AUTO 0.01 K/mm3 (0.00-0.23); BASOPHILS PERCENT AUTO 0 % (0-2); EOSINOPHILS ABSOLUTE AUTO 0.36 K/mm3 (0.00-0.68); EOSINOPHILS PERCENT AUTO 4 % (0-6); Hematocrit 23.4 % (33.0-51.0); Hemoglobin 7.5 g/dL (11.5-16.0); IMMATURE GRAN ABSOLUTE AUTO 0.02 K/mm3 (0.00-0.10); IMMATURE GRAN PERCENT AUTO 0 % (0-1); LYMPHOCYTES ABSOLUTE AUTO 1.55 K/mm3 (0.84-5.20); LYMPHOCYTES PERCENT AUTO 19 % (21-46); MONOCYTES ABSOLUTE AUTO 0.59 K/mm3 (0.16-1.47); MONOCYTES PERCENT AUTO 7 % (4-13); Mean Corpuscular HGB 29.1 pg (26.0-34.0); Mean Corpuscular HGB Conc 32.1 g/dL (31.5-36.5); Mean Corpuscular Volume 91 fL (80-100); Mean Platelet Volume 10.6 fL (9.1-12.4); NEUTROPHILS ABSOLUTE AUTO 5.57 K/mm3 (1.96-9.15); NEUTROPHILS PERCENT AUTO 69 % (41-73); Platelet Count 210 K/mm3 (150-400); RDW Coefficient Variation 16.5 % (11.7-14.2); RDW Standard Deviation 54.9 fL (35.1-46.3); Red Blood Cell Count 2.58 M/mm3 (3.80-5.20)
[2023-01-30 05:13] LABS: Albumin, Blood 1.8 g/dL (3.4-5.0); Anion Gap 8 mmol/L (6-16); Blood Urea Nitrogen 64 mg/dL (8-24); Bun/Creatinine Ratio 18.9 (12.0-20.0); CO2, Blood 18 mmol/L (21-32); Calcium, Blood 7.5 mg/dL (8.5-10.1); Chloride, Blood 109 mmol/L (98-108); Creatinine, Blood 3.38 mg/dL (0.40-1.00); Glomerular Filtration Rate 13 (60-); Glucose, Blood 82 mg/dL (70-99); Phosphorus, Blood 5.1 mg/dL (2.5-4.9); Potassium, Blood 3.4 mmol/L (3.5-5.5); Sodium, Blood 135 mmol/L (136-145)
--- NOTE | 2023-01-30 06:34 | NUR ---
END OF SHIFT SUMMARY NO ACUTE EVENTS OVERNIGHT. SHE SLEPT ALL SHIFT. SHE CONT TO BE ORIENTED BUT SOMNULENT. AFEBRILE. SPO2 >95% ON 2L NC. HR 70-100. SBP 100-140, DBP 30-60; LEVOPHED INFUSING 3-4MCG/MIN. RECTAL TUBE IN PLACE WITH SMALL AMOUNT OF OUTPUT. HENSLEY IN PLACE WITH 820ML OUTPUT, URINE LESS PURULENT BUT CONT TO BE CLOUDY. LR INFUSING AT 125ML/HR. AM LABS AND 0600 CBG CHECKED AND RESULTED IN THE 80'S. PICC TO LUE PATENT WITH DRESSING C/D/I. WILL REPORT TO AM RN WHEN AVAILABLE.
--- NOTE | 2023-01-30 08:25 | NUR ---
Assumed care of pt at 0700. Report received from Shanon MCCOY. Pt A&O x 4. Cannot state exact date, but knows its January 2023. Answers questions, follows commands, verbalizes needs. States "well" when asked how she is feeling today. Asked pt if she would like to get up into a chair today, she states "not yet". SR per monitor with approx 10 PVCs per minute. This was discussed with Dr Francois and magnesium level added to morning labs. Prolonged QTC, plan to notify pharmacist and clarify which meds pt is receiving can prolong QT interval. Rectal tube with green liquid output. Cosme has cloudy yellow urine, which overall is an improvement from day prior.
[2023-01-30 13:02] LABS: Albumin, Blood 1.9 g/dL (3.4-5.0); Anion Gap 9 mmol/L (6-16); Blood Urea Nitrogen 59 mg/dL (8-24); Bun/Creatinine Ratio 17.8 (12.0-20.0); CO2, Blood 18 mmol/L (21-32); Calcium, Blood 7.8 mg/dL (8.5-10.1); Chloride, Blood 107 mmol/L (98-108); Creatinine, Blood 3.31 mg/dL (0.40-1.00); Glomerular Filtration Rate 13 (60-); Glucose, Blood 145 mg/dL (70-99); Phosphorus, Blood 4.7 mg/dL (2.5-4.9); Potassium, Blood 4.1 mmol/L (3.5-5.5); Sodium, Blood 134 mmol/L (136-145)
--- NOTE | 2023-01-30 15:00 | NUR ---
Pharmacist states that only QT prolonging meds ordered is zofran, which pt has not been receiving.
--- NOTE | 2023-01-30 18:20 | NUR ---
SUMMARY Patient is now PCU status Neuro: A&O x 4. Answers questions, follows commands, verbalizes needs. Pleasant and cooperative with care. Moves all extremities with equal strength and range of motion. Musc: Able to assist with ADLs. Worked with PT/OT today. currently mobilizes with ceiling lift. Resp: On room air for majoiryt of day, however required 2 LPM NC within last hour to maintain SpO2 90% or greater. Cardiac: ST per monitor, rate 104. Levophed off since this AM, BP stable. GI: Rectal tube in place with scant output. Immodium given. : Good urine output from schilling Skin: CHG bath complete. Dressing to skin tear changed. Psych: Sons and daughter in to see patient today.
--- NOTE | 2023-01-30 21:00 | NUR ---
ASSUMED CARE AT 1900 PT LAYING IN BED SLEEPING AT SHIFT CHANGE. SHE IS MORE ALERT THAN PREVIOUS DAY AND STATES THAT SHE IS FEELING BETTER; CONT TO BE ORIENTED X4; IMPROVEMENT IN STRANGTH BUT CONT TO BE WEAK. SPO2 >98% ON 2L NC. HR 100-110; SBP 110'S; MAP 60-64; PLAN TO CALL HOSPITALIST REGARDING MAP. HENSLEY IN PLACE AND DRAINING TO GRAVITY. PICC TO LUE PATENT WITH DRESSING C/D/I. SEE SHIFT ASSESSMENT FOR FULL ASSESSMENT.
--- NOTE | 2023-01-30 22:30 | NUR ---
UPDATE CALL MADE TO HOSPITALIST REGARDING BP, MAP 60-64; MENTATION IMPROVED SINCE YESTERDAY AND PT STATES THAT SHE FEELS BETTER. NEW ORDERS PROVIDED FOR MIDODRINE AND ALBUMIN. REPORT GIVEN TO Sandrita RUCKER RN IN PCU.
--- NOTE | 2023-01-30 23:04 | NUR ---
ARRIVAL TO PCU PT ARRIVED FROM ICU3 TO PCU20 WITH THIS RN AT BEDSIDE. PT A/O X 4. CALM AND COOPERATIVE WITH CARE. BP SOFT. OTHER VSS. ON 2L NC. LR AT 125ML/HR. MIDODRINE GIVEN AND ALBUMIN STARTED. PT WEAK BUT ATTEMPTS TO HELP WITH CARE AND MOVING. HENSLEY PATENT AND DRAINING TO GRAVITY. CALL LIGHT IN REACH.
[2023-01-31] VITALS (31 sets, daily range): BP systolic 115–158; BP diastolic 41–74
[2023-01-31 04:24] LABS: BASOPHILS ABSOLUTE AUTO 0.03 K/mm3 (0.00-0.23); BASOPHILS PERCENT AUTO 1 % (0-2); EOSINOPHILS ABSOLUTE AUTO 0.38 K/mm3 (0.00-0.68); EOSINOPHILS PERCENT AUTO 6 % (0-6); Hematocrit 19.7 % (33.0-51.0); Hemoglobin 6.5 g/dL (11.5-16.0); IMMATURE GRAN ABSOLUTE AUTO 0.02 K/mm3 (0.00-0.10); IMMATURE GRAN PERCENT AUTO 0 % (0-1); LYMPHOCYTES ABSOLUTE AUTO 1.24 K/mm3 (0.84-5.20); LYMPHOCYTES PERCENT AUTO 19 % (21-46); MONOCYTES ABSOLUTE AUTO 0.44 K/mm3 (0.16-1.47); MONOCYTES PERCENT AUTO 7 % (4-13); Mean Corpuscular Volume 91 fL (80-100); Mean Platelet Volume 10.6 fL (9.1-12.4); NEUTROPHILS ABSOLUTE AUTO 4.37 K/mm3 (1.96-9.15); NEUTROPHILS PERCENT AUTO 67 % (41-73); Platelet Count 183 K/mm3 (150-400); RDW Coefficient Variation 16.6 % (11.7-14.2); RDW Standard Deviation 54.7 fL (35.1-46.3); Red Blood Cell Count 2.17 M/mm3 (3.80-5.20); White Blood Cell Count 6.48 K/mm3 (4.00-11.30)
[2023-01-31 05:32] LABS: Magnesium, Blood 1.8 mg/dL (1.6-2.4); Uric Acid, Blood 4.5 mg/dL (2.6-6.0)
[2023-01-31 05:43] LABS: Alanine Aminotransfer (ALT/SGP 26 U/L (12-78); Albumin, Blood 2.1 g/dL (3.4-5.0); Albumin/Globulin Ratio 0.8 (0.8-1.8); Alk Phos 126 U/L (50-136); Anion Gap 7 mmol/L (6-16); Aspartate Aminotrans (AST/SGOT 29 U/L (12-37); Bilirubin, Direct <0.1 mg/dL (0.0-0.3); Bilirubin, Indirect Unable to Calculate mg/dL (0.1-0.7); Bilirubin, Total 0.1 mg/dL (0.1-1.0); Blood Urea Nitrogen 61 mg/dL (8-24); Bun/Creatinine Ratio 21.1 (12.0-20.0); CO2, Blood 19 mmol/L (21-32); Calcium, Blood 7.6 mg/dL (8.5-10.1); Chloride, Blood 110 mmol/L (98-108); Creatinine, Blood 2.89 mg/dL (0.40-1.00); Globulin, Blood 2.6 g/dL (2.2-4.0); Glomerular Filtration Rate 15 (60-); Glucose, Blood 162 mg/dL (70-99); Phosphorus, Blood 4.3 mg/dL (2.5-4.9); Sodium, Blood 136 mmol/L (136-145); Total Protein, Blood 4.7 g/dL (6.4-8.2)
--- NOTE | 2023-01-31 06:20 | NUR ---
SHIFT SUMMARY NO ACUTE EVENTS T/O NIGHT. PT BP IMPROVED. VSS. CALL TO HOSP REGARDING HEMOGLOBIN LEVEL THIS AM. ORDER RECEIVED FOR 1 UNIT PRBC. LR CHANGED FROM 125ML/HR TO 75ML/HR PER DR FELICIANO THIS AM. HENSLEY PATENT AND DRAINING TO GRAVITY. CALL LIGHT IN REACH. WILL REPORT OFF TO ONCOMING RN.
--- NOTE | 2023-01-31 07:17 | NUR ---
Received report from Noc RN. Patient awake in bed during report. She is alert and oriented and is able to communicate her needs. She is on RA and sats in the mid 90%'s. She has 16Fr Cosme draining to gravity in adequate amounts of yellow urine. Will be starting 1 unit PRBC shortly, as they are on there way from blood bank. She has skin tear with dressing to rifght elbow. FISHER but very weak and has note on her board to practice exercises while in bed and is reminded during rounding. Dr Arce has also changed her fluids to 1/2 NS with 2 amps bicarb at 50 ml/hr. Patient states no immediate concerns.
--- NOTE | 2023-01-31 12:02 | NUR ---
Patient has completed her 1 PRBC and is now currently on 1/2 ns with bicarb at 50 ml/hr. She remains on RA and sats >90% while sleeping. She has been resting since bed bath this am, with linen change. Cleaned and medicared under breasts and panus for reddness and moisture. She tolerated meds with water. Dr Francois was by and assessed patient and is now med no tele. Patient has no current needs.
--- NOTE | 2023-01-31 17:40 | NUR ---
No significant changes with patient most of shift. She remains on 1/2 NS with bicarb at 50 ml/hr, She continues on RA and sats >90%. She was up in room wit PT todays and ambulated 20 feet. CBG elevated r/t rootbeer float. Denenies any current needs and is resting in bed with HOB slightly elevated. She has 16 Fr schilling draining to gravity and had 1600 ml yellow clear urine.
[2023-02-01 03:45] VITALS: BP 129/46
[2023-02-01 05:22] LABS: Hematocrit 24.2 % (33.0-51.0)
--- NOTE | 2023-02-01 06:34 | NUR ---
PATIENT AOX4. NOT ON TELEMETRY. BP STABLE. ROOM AIR WHILE AWAKE, 2L NC PLACED WHILE PATIENT SLEEPING. NO N/V. HENSLEY IN PLACE, GOOD URINE OUTPUT. SODIUM BICARB 1/2NS INFUSING.
[2023-02-01 06:59] LABS: Ferritin, Serum 342 ng/mL (8-252); Iron Serum 29 ug/dL (50-170); Magnesium, Blood 1.9 mg/dL (1.6-2.4); Percent Saturation 27.4 % (15.0-50.0); Total Iron Binding Capacity 106 ug/dL (250-450)
[2023-02-01 07:13] LABS: Albumin, Blood 1.9 g/dL (3.4-5.0); Anion Gap 6 mmol/L (6-16); Blood Urea Nitrogen 47 mg/dL (8-24); Bun/Creatinine Ratio 22.3 (12.0-20.0); CO2, Blood 20 mmol/L (21-32); Calcium, Blood 7.7 mg/dL (8.5-10.1); Chloride, Blood 113 mmol/L (98-108); Creatinine, Blood 2.11 mg/dL (0.40-1.00); Glomerular Filtration Rate 22 (60-); Glucose, Blood 147 mg/dL (70-99); Phosphorus, Blood 3.2 mg/dL (2.5-4.9); Potassium, Blood 4.1 mmol/L (3.5-5.5); Sodium, Blood 139 mmol/L (136-145)
[2023-02-01 07:50] VITALS: BP 136/51
[2023-02-01 11:30] VITALS: BP 149/74
[2023-02-01] MEDS ORDERED: NORTRIPTYLINE H2512 PO (13:07)
[2023-02-01] MEDS ORDERED: LYRICA100 M1 PO (13:08)
--- NOTE | 2023-02-01 17:49 | NUR ---
RN/ DAY SHIFT SUMMARY MORNING SHIFT REPORT RECIEVED AT BEDSIDE WITH THE PATIENT. ASSESSMENT AND MEDICATION PASSES WERE COMPLETED WITH NO COMPLICATIONS. PATIENTS BP WAS ELEVEATED AND NO MIDODRINE GIVEN DUE TO CLINICAL PARAMETERS. THE PATIENT ALSO HAS AN INDWELLING CATHETER THAT WAS DECIDED TO CONTINUE UNTO DISCHARGE FOR HYDRONEPHROSIS. THE PATIENT WAS IN GOOD SPIRITS ALL DAY BUT HAD ISSUES WITH NAUSEA AROUND MEAL TIMES. THE PATIENT WAS THEN TRANSFERED TO MEDICAL FLOOR WITH MED NURSE RECIEVING REPORT AND ASSUMING CARE. CONTINUE TO MONITOR.
[2023-02-01 17:55] VITALS: BP 154/76
--- NOTE | 2023-02-01 18:14 | NUR ---
PT ARRIVED TO 212 FROM PCU IN BED. PROVIDED CALL LIGHT AND ORIENTED TO USE. PT BEGAN DRY HEAVING AND STATED HAD TO HAVE ZOFRAN BEFORE COULD EAT DINNER. MEDICATED WITH ZOFRAN PER ORDERS. PT RESTING IN BED, STATED DID NOT KNOW IF COULD EAT. CALL LIGHT IN REACH, DINNER ON BEDSIDE TRAY.
[2023-02-01 19:47] VITALS: BP 153/71
[2023-02-01 23:57] VITALS: BP 157/66
[2023-02-02 04:39] VITALS: BP 136/65
[2023-02-02 04:56] LABS: Hematocrit 26.4 % (33.0-51.0); Hemoglobin 8.7 g/dL (11.5-16.0)
[2023-02-02 05:23] LABS: Albumin, Blood 2.1 g/dL (3.4-5.0); Anion Gap 6 mmol/L (6-16); Blood Urea Nitrogen 39 mg/dL (8-24); Bun/Creatinine Ratio 23.9 (12.0-20.0); CO2, Blood 23 mmol/L (21-32); Calcium, Blood 8.3 mg/dL (8.5-10.1); Chloride, Blood 112 mmol/L (98-108); Creatinine, Blood 1.63 mg/dL (0.40-1.00); Glomerular Filtration Rate 31 (60-); Glucose, Blood 188 mg/dL (70-99); Magnesium, Blood 1.6 mg/dL (1.6-2.4); Phosphorus, Blood 2.8 mg/dL (2.5-4.9); Potassium, Blood 4.1 mmol/L (3.5-5.5); Sodium, Blood 141 mmol/L (136-145)
[2023-02-02 07:09] VITALS: BP 154/60
--- NOTE | 2023-02-02 07:42 | NUR ---
SUMMARY PT WITH GOOD URINARY OUTPUT TONIGHT.SLEPT OFF AND ON.
[2023-02-02] MEDS ORDERED: METO50ER PO (11:05)
[2023-02-02] MEDS ORDERED: LOPE2C PO (11:08)
[2023-02-02 14:36] VITALS: BP 140/73
--- NOTE | 2023-02-02 17:30 | NUR ---
DISCHARGE F/U ARRANGED w/ DR FELICIANO. EDUCATION DONE w/ DAUGHTER & PT. MEDS FAXED EARLY TODAY. UNDERSTAND IMPORTANCE OF F/U w/ 's. ESCORTED OUT VIA WC.
== END 2023-02-02 17:33 | disposition home or self-care (01) | DRG 682 ==
LOC: ER 21:47 → MEDS 23:32 → ICUE 23:32 → PCU 23:32 → MEDS 01-29 01:44 → ICUE 01-29 11:32 → PCU 01-30 22:36 → SURS 02-01 17:56
PROVIDERS: Family Medicine; Internal Medicine Nephrology; Student in an Organized Health Care Education/Training Program; ADMIT Internal Medicine
PROC: 0T9B70Z Drainage of Bladder with Drainage Device, Via Natural or Artificial Opening (ICD-10-PCS; principal; 2023-01-28)
PROC: 02HV33Z Insertion of Infusion Device into Superior Vena Cava, Percutaneous Approach (ICD-10-PCS; 2023-01-29)
PROC: 3E033XZ Introduction of Vasopressor into Peripheral Vein, Percutaneous Approach (ICD-10-PCS; 2023-01-30)
PROC: 30233N1 Transfusion of Nonautologous Red Blood Cells into Peripheral Vein, Percutaneous Approach (ICD-10-PCS; 2023-01-31)
DX: N17.9 Acute kidney failure, unspecified (principal); R57.1 Hypovolemic shock; I13.0 Hypertensive heart and chronic kidney disease with heart failure and stage 1 through stage 4 chronic kidney disease, or unspecified chronic kidney disease; E87.1 Hypo-osmolality and hyponatremia; E87.20 Acidosis, unspecified; I50.22 Chronic systolic (congestive) heart failure; N13.6 Pyonephrosis; E16.2 Hypoglycemia, unspecified; R55 Syncope and collapse; E83.39 Other disorders of phosphorus metabolism; I95.9 Hypotension, unspecified; E11.22 Type 2 diabetes mellitus with diabetic chronic kidney disease; Z20.822 Contact with and (suspected) exposure to COVID-19; N18.30 Chronic kidney disease, stage 3 unspecified; E78.5 Hyperlipidemia, unspecified; M10.9 Gout, unspecified; E86.0 Dehydration; S41.111A Laceration without foreign body of right upper arm, initial encounter; E87.6 Hypokalemia; R29.6 Repeated falls; E88.09 Other disorders of plasma-protein metabolism, not elsewhere classified; D63.1 Anemia in chronic kidney disease; I25.10 Atherosclerotic heart disease of native coronary artery without angina pectoris; Z95.5 Presence of coronary angioplasty implant and graft; W18.39XA Other fall on same level, initial encounter; Z79.899 Other long term (current) drug therapy; Z79.82 Long term (current) use of aspirin; Z79.4 Long term (current) use of insulin; Z87.891 Personal history of nicotine dependence; Z90.49 Acquired absence of other specified parts of digestive tract; Z90.710 Acquired absence of both cervix and uterus
CPT/HCPCS: 0241U; 36415; 36569; 51701; 51702; 70450; 71045; 72125; 76770; 80048; 80053; 80069; 81001; 82140; 82248; 82550; 82607; 82728; 82746; 82803; 82947; 83036; 83540; 83550; 83605; 83690; 83735; 83880; 84100; 84550; 85014; 85018; 85025; 86850; 86900; 86901; 86923; 87040; 87077; 87086; 87186; 87507; 93005; 93010; 94760; 94762; 96361-59; 96374-59; 97110; 97116; 97162; 97166; 97530; 97535; 99285-25; A9270; C1751; J0696; J0881; J1644; J1815; J1940; J2405; J3480; J7030; J7050; J7060; J7120; P9016; P9047

== ENCOUNTER → 2023-03-02 | Outpatient (CLI) | payer MEDICARE ==
[~2023-03-02] MED LIST changes: +LOPE2C PO; +LYRICA100 M1 PO; +METO50ER PO; +NORTRIPTYLINE H2512 PO
== END ==
LOC: LAB 12:55 → LAB SHORT 12:55
DX: R30.0 Dysuria (principal)
CPT/HCPCS: 87086

== ENCOUNTER → 2023-04-13 | Outpatient (CLI) | payer MEDICARE | LOC: LAB SHORT 17:22 → LAB 17:22 | DX: N39.0 Urinary tract infection, site not specified (principal) | CPT/HCPCS: 87086 ==

== ENCOUNTER 2023-04-20 11:53 | Emergency (ER) | payer MEDICARE ==
[~2023-04-20] VITALS: Ht 152.4 cm; Wt 72.6 kg
[2023-04-20 12:35] LABS: BASOPHILS ABSOLUTE AUTO 0.03 K/mm3 (0.00-0.23); BASOPHILS PERCENT AUTO 0 % (0-2); EOSINOPHILS ABSOLUTE AUTO 0.38 K/mm3 (0.00-0.68); EOSINOPHILS PERCENT AUTO 5 % (0-6); Hematocrit 33.3 % (33.0-51.0); Hemoglobin 10.1 g/dL (11.5-16.0); IMMATURE GRAN ABSOLUTE AUTO 0.03 K/mm3 (0.00-0.10); IMMATURE GRAN PERCENT AUTO 0 % (0-1); LYMPHOCYTES ABSOLUTE AUTO 1.47 K/mm3 (0.84-5.20); LYMPHOCYTES PERCENT AUTO 19 % (21-46); MONOCYTES ABSOLUTE AUTO 0.53 K/mm3 (0.16-1.47); MONOCYTES PERCENT AUTO 7 % (4-13); Mean Corpuscular HGB Conc 30.3 g/dL (31.5-36.5); Mean Corpuscular Volume 96 fL (80-100); Mean Platelet Volume 10.6 fL (9.1-12.4); NEUTROPHILS ABSOLUTE AUTO 5.26 K/mm3 (1.96-9.15); NEUTROPHILS PERCENT AUTO 68 % (41-73); Platelet Count 248 K/mm3 (150-400); RDW Coefficient Variation 17.2 % (11.7-14.2); RDW Standard Deviation 60.3 fL (35.1-46.3); Red Blood Cell Count 3.48 M/mm3 (3.80-5.20)
[2023-04-20 13:11] LABS: Albumin, Blood 2.8 g/dL (3.4-5.0); Albumin/Globulin Ratio 0.6 (0.8-1.8); Bilirubin, Total 0.2 mg/dL (0.1-1.0); Bun/Creatinine Ratio 20.8 (12.0-20.0); Calcium, Blood 8.5 mg/dL (8.5-10.1); Creatinine, Blood 2.98 mg/dL (0.40-1.00); Globulin, Blood 4.4 g/dL (2.2-4.0); Total Protein, Blood 7.2 g/dL (6.4-8.2)
[2023-04-20 14:34] LABS: Source, Urine Clean Catch
[2023-04-20 14:50] LABS: Appearance, Urine Cloudy (Clear); Bilirubin, Urine Neg (Neg); Blood, Urine 4+ (Neg); Color, Urine Yellow (P-Yellow); Glucose Qualitative, Urine Neg (Neg); Ketones, Urine Neg (Neg); Leukocyte Esterase, Urine 3+ (Neg); Nitrite, Urine Neg (Neg); Protein, Urine 2+ (Neg); Urobilinogen, Urine NORM (Normal)
[2023-04-20 15:06] LABS: Amorphous Light (0-Heavy); Bacteria Many /hpf; Squamous Epithelial Cells Few /hpf (Few); White Blood Cells, Urine 50-100 /hpf (0-5)
[2023-04-20] MEDS ORDERED: CEFD300 PO (17:41)
[2023-04-20 18:00] VITALS: BP 108/69
== END 2023-04-20 18:12 | disposition home or self-care (01) ==
LOC: ER 11:53
PROVIDERS: Physician Assistant
DX: N39.0 Urinary tract infection, site not specified (principal); N18.9 Chronic kidney disease, unspecified; Z79.899 Other long term (current) drug therapy; Z79.4 Long term (current) use of insulin; Z79.82 Long term (current) use of aspirin; E11.9 Type 2 diabetes mellitus without complications; N18.30 Chronic kidney disease, stage 3 unspecified; Z87.891 Personal history of nicotine dependence
CPT/HCPCS: 71046; 80053; 81001; 82947; 85025; 87086; 96365; 99285-25; A9270; J0696; J7030

== ENCOUNTER 2023-04-22 21:06 | Inpatient (IN) | payer MEDICARE ==
[~2023-04-22] VITALS: Ht 152.4 cm; Wt 73.3 kg
[2023-04-22 22:05] LABS: BASOPHILS ABSOLUTE AUTO 0.04 K/mm3 (0.00-0.23); BASOPHILS PERCENT AUTO 1 % (0-2); EOSINOPHILS ABSOLUTE AUTO 0.58 K/mm3 (0.00-0.68); EOSINOPHILS PERCENT AUTO 7 % (0-6); Hematocrit 34.2 % (33.0-51.0); Hemoglobin 10.5 g/dL (11.5-16.0); IMMATURE GRAN ABSOLUTE AUTO 0.05 K/mm3 (0.00-0.10); IMMATURE GRAN PERCENT AUTO 1 % (0-1); LYMPHOCYTES ABSOLUTE AUTO 1.75 K/mm3 (0.84-5.20); LYMPHOCYTES PERCENT AUTO 21 % (21-46); MONOCYTES ABSOLUTE AUTO 0.55 K/mm3 (0.16-1.47); MONOCYTES PERCENT AUTO 7 % (4-13); Mean Corpuscular HGB Conc 30.7 g/dL (31.5-36.5); Mean Corpuscular Volume 95 fL (80-100); Mean Platelet Volume 11.1 fL (9.1-12.4); NEUTROPHILS ABSOLUTE AUTO 5.42 K/mm3 (1.96-9.15); NEUTROPHILS PERCENT AUTO 65 % (41-73); Platelet Count 230 K/mm3 (150-400); RDW Coefficient Variation 16.6 % (11.7-14.2); RDW Standard Deviation 58.2 fL (35.1-46.3); Red Blood Cell Count 3.62 M/mm3 (3.80-5.20); White Blood Cell Count 8.39 K/mm3 (4.00-11.30)
[2023-04-22 22:11] LABS: Base Excess Venous -1.1 mmol/L; Bicarbonate Venous 22.7 mmol/L (24.0-30.0); PCO2 Venous 58.7 mmHg (38-42); pH Blood Venous 7.26 (7.34-7.37)
[2023-04-22 22:50] LABS: Influenza A, PCR NEGATIVE (NEGATIVE); Influenza B, PCR NEGATIVE (NEGATIVE); Resp Syncytial Virus, PCR NEGATIVE (NEGATIVE); SARS-Cov-2 (COVID-19) PCR, MMC NEGATIVE (NEGATIVE)
[2023-04-22 23:08] LABS: Magnesium, Blood 3.1 mg/dL (1.6-2.4); Thyroid Stimulating Hormone 3.96 uIU/mL (0.360-4.800)
[2023-04-22 23:15] LABS: Albumin, Blood 2.8 g/dL (3.4-5.0); Albumin/Globulin Ratio 0.6 (0.8-1.8); Bilirubin, Total 0.2 mg/dL (0.1-1.0); Bun/Creatinine Ratio 21.9 (12.0-20.0); Calcium, Blood 8.2 mg/dL (8.5-10.1); Creatinine, Blood 3.06 mg/dL (0.40-1.00); Globulin, Blood 4.5 g/dL (2.2-4.0); Potassium, Blood 6.3 mmol/L (3.5-5.5); Total Protein, Blood 7.3 g/dL (6.4-8.2)
[2023-04-23] VITALS (39 sets, daily range): BP systolic 91–179; BP diastolic 37–163
--- NOTE | 2023-04-23 02:34 | NUR ---
ARRIVAL ASSUMED CARE OF PATIENT AT 0117. PT ARRIVED ON O2 VIA NC, SOME GASPING BREATHS NOTED BETWEEN WORDS. BIPAP PLACED BY RESPIRATORY QUICKLY. PT A/OX3, PLEASENT AND COOPERATIVE. ABLE TO CONVORSATE, DIFFICULT TO ARTICULATE THROUGH THE MASK. ABLE TO MOVE ALL LIMBS. PT NOTED TO HAVE TREMORS T/O HER BODY, DAUGHTER STATES THIS IS NOT HER BASELINE. ALSO NOTED THAT PT IS UNABLE TO CONTROL HER BLADDER AT THIS TIME. PURE WICK PLACED. MEDICATED PER EMAR. TELE PLACED, SR 80'S. VSS.
--- NOTE | 2023-04-23 03:47 | NUR ---
RESIDENT COMMUNICATION PHONE CALL PLACED TO DR MARTINEZ D/T PTS MENTATION REMAINING SOMULENT, DESPITE GLUCOGEN ADMINISTRATION. CBG CAME UP TO 81, WAS 55 WHEN ORIGIONALLY CHECKED. REPORTED THAT HE WOULD ASSESS THE SITUATION AND PLACE ORDERS NEEDED. PLAN TO CALL WITH FURTHER CONCERNS
--- NOTE | 2023-04-23 04:45 | NUR ---
DOCTOR COMMUNICATION DR MARTINEZ ROUNDED ON THE PATIENT, NO NEW ORDERS OBTAINED AT THIS TIME
[2023-04-23 04:46] LABS: BASOPHILS ABSOLUTE AUTO 0.04 K/mm3 (0.00-0.23); BASOPHILS PERCENT AUTO 0 % (0-2); EOSINOPHILS ABSOLUTE AUTO 0.35 K/mm3 (0.00-0.68); EOSINOPHILS PERCENT AUTO 4 % (0-6); Hematocrit 31.3 % (33.0-51.0); Hemoglobin 9.8 g/dL (11.5-16.0); IMMATURE GRAN ABSOLUTE AUTO 0.08 K/mm3 (0.00-0.10); IMMATURE GRAN PERCENT AUTO 1 % (0-1); LYMPHOCYTES ABSOLUTE AUTO 1.44 K/mm3 (0.84-5.20); LYMPHOCYTES PERCENT AUTO 14 % (21-46); MONOCYTES ABSOLUTE AUTO 0.78 K/mm3 (0.16-1.47); MONOCYTES PERCENT AUTO 8 % (4-13); Mean Corpuscular HGB 28.8 pg (26.0-34.0); Mean Corpuscular HGB Conc 31.3 g/dL (31.5-36.5); Mean Corpuscular Volume 92 fL (80-100); Mean Platelet Volume 10.5 fL (9.1-12.4); NEUTROPHILS ABSOLUTE AUTO 7.34 K/mm3 (1.96-9.15); NEUTROPHILS PERCENT AUTO 73 % (41-73); Platelet Count 187 K/mm3 (150-400); RDW Coefficient Variation 16.5 % (11.7-14.2); RDW Standard Deviation 55.6 fL (35.1-46.3); White Blood Cell Count 10.03 K/mm3 (4.00-11.30)
--- NOTE | 2023-04-23 05:03 | NUR ---
SHIFT SUMMARY VSS. BP NOTED TO BECOME SOFTER BUT RESIDENT REPORTS IT IS ACCEPTABLE AT THIS TIME. PT REMAINS ON BIPAP, SATS >90%. PT IS EXTREMELY SOMULENT, WITHDRAWS FROM PAIN. CBG HAS INCREASED FROM 55 [address], LIGHT YELLOW URINE NOTED. TELE READS SR @64. NO FURTHER EVENTS NOTED.
[2023-04-23 05:11] LABS: Bun/Creatinine Ratio 21.7 (12.0-20.0); Calcium, Blood 8.3 mg/dL (8.5-10.1); Creatinine, Blood 3.09 mg/dL (0.40-1.00); Potassium, Blood 5.2 mmol/L (3.5-5.5)
--- NOTE | 2023-04-23 07:15 | NUR ---
Assumed care of pt at 0700. Report received from Dulce MCCOY. Pt reponsive to loud verbal stimulus with pressure application. Currently on BiPAP AVAPS tidal volume set to 500, EPAP 9, rate 14. SR per monitor. BP stable. Purewick in place for urine collection
--- NOTE | 2023-04-23 08:41 | NUR ---
Dr Smith in to see patient. Discussed patient's mentation with providers. Discussed that pt has several important cardiac meds scheduled this morning. Pt is not appropriate for PO intake due to mentation and BiPAP dependent status. Plan to hold these medication per Dr Smith.
--- NOTE | 2023-04-23 12:21 | NUR ---
BiPAP began alarming for low tidal volumes. Pt RR had increased to high 20s and tidal volumes were high 100s to low 200s. Notified clinic charge nurse, RT Donnie, and Dr Smith. Notified provider that pt's daughter, Carmen, had just arrived to bedside. VBG ordered. Dr Smith at bedside to discuss goals of care with pt's daughter. VBG pending at this time.
[2023-04-23 12:29] LABS: Base Excess Venous -3.4 mmol/L; Bicarbonate Venous 21.7 mmol/L (24.0-30.0); PCO2 Venous 41.6 mmHg (38-42); pH Blood Venous 7.34 (7.34-7.37)
--- NOTE | 2023-04-23 16:05 | NUR ---
CT ordered and completed. Afterwards Dr Smith in to discuss plan of care with family; continue with BiPAP and assess for improved mentation. During 1600 marjan care and repositioning, pt became awake. Following directions and able to interact with sonPari.
--- NOTE | 2023-04-23 18:25 | NUR ---
SUMMARY Neuro/Musc/ADLs: Obtunded for most of shift. Currently A&O x 4. Answering question, following commands, verbalizing needs. Pleasant and cooperative with care. Meaningfully interacting and conversating with many family members at baseline. Able to assist with repositioning and perform oral care independently. Resp: On BiPAP for most of day but currently is on room air, SpO2 90% or greater Cardiac: SR per monitor, BP stable GI: Ate dinner this evening. Coughs and clears throat often while eating. Dr Smith notified. Orders for ST eval tomorrow. Incontinent BMs, liquid with pellets, brown. : Good urine output from purewick. Skin: Unchanged from initial assessment. Psych: In good spirits, joyous while interacting with family.
[2023-04-24 03:15] VITALS: BP 141/56
[2023-04-24 03:41] LABS: Base Excess Venous -0.2 mmol/L; Bicarbonate Venous 24.5 mmol/L (24.0-30.0); PCO2 Venous 35.5 mmHg (38-42); pH Blood Venous 7.44 (7.34-7.37)
[2023-04-24 04:10] LABS: BASOPHILS PERCENT AUTO 0 % (0-2); EOSINOPHILS PERCENT AUTO 0 % (0-6); Hematocrit 32.3 % (33.0-51.0); IMMATURE GRAN ABSOLUTE AUTO 0.03 K/mm3 (0.00-0.10); IMMATURE GRAN PERCENT AUTO 1 % (0-1); LYMPHOCYTES ABSOLUTE AUTO 0.87 K/mm3 (0.84-5.20); LYMPHOCYTES PERCENT AUTO 15 % (21-46); MONOCYTES ABSOLUTE AUTO 0.09 K/mm3 (0.16-1.47); MONOCYTES PERCENT AUTO 2 % (4-13); Mean Corpuscular HGB 28.7 pg (26.0-34.0); Mean Corpuscular Volume 93 fL (80-100); Mean Platelet Volume 10.9 fL (9.1-12.4); NEUTROPHILS ABSOLUTE AUTO 4.88 K/mm3 (1.96-9.15); NEUTROPHILS PERCENT AUTO 83 % (41-73); Platelet Count 228 K/mm3 (150-400); RDW Coefficient Variation 16.9 % (11.7-14.2); RDW Standard Deviation 56.6 fL (35.1-46.3); Red Blood Cell Count 3.49 M/mm3 (3.80-5.20); White Blood Cell Count 5.87 K/mm3 (4.00-11.30)
[2023-04-24 04:32] LABS: Albumin, Blood 2.4 g/dL (3.4-5.0); Albumin/Globulin Ratio 0.6 (0.8-1.8); Bilirubin, Total 0.3 mg/dL (0.1-1.0); Bun/Creatinine Ratio 25.5 (12.0-20.0); Calcium, Blood 8.2 mg/dL (8.5-10.1); Creatinine, Blood 2.75 mg/dL (0.40-1.00); Potassium, Blood 5.9 mmol/L (3.5-5.5); Total Protein, Blood 6.4 g/dL (6.4-8.2)
--- NOTE | 2023-04-24 05:11 | NUR ---
END OF SHIFT NOTE PT A&OX4 T/O SHIFT, ABLE TO CALL APPROPRIATELY AND COMMUNICATE NEEDS WITH STAFF. HR NSR W/ AV BLOCK, 90'S. SBP 140'S, DENIES CHEST PAIN/PRESSURE. SPO2 >90% ON ROOM AIR. DENIES FEELING SOB, NO VISIBLE DYSPNEA OR ACCESSORY MUSCLE USE NOTED. RR 12-16. PUREWICK IN PLACE DRAINING YELLOW URINE. NO BM THIS SHIFT. TOLERATING PO INTAKE WELL, Q4 CBG'S COMPLETED. CBG [id number] FOLLOWING PO INTAKE, PT ADVISED NOT TO CONSUME MORE FOOD UNTIL BREAKFAST DUE TO HYPERGLYCEMIA. REPOSITIONED PT T/O SHIFT AND NEEDED FOR COMFORT. NO OTHER EVENTS, WILL REPORT TO ONCOMING RN. CALL LIGHT WITHIN REACH, BED IN LOWEST POSITION.
--- NOTE | 2023-04-24 05:32 | NUR ---
PHYSICIAN CONTACT CALL PLACED TO DR. MARTINEZ REGARDING PT'S CBG OF 368. NO NEW ORDERS RECEIVED AT THIS TIME, DR. MARTINEZ STATES HE WILL EVALUATE SHORTLY. PT ADVISED OF NO ADDITIONAL PO INTAKE AT THIS TIME.
[2023-04-24 08:03] VITALS: BP 155/74
--- NOTE | 2023-04-24 10:22 | NUR ---
AM NOTE: PATIENT ALERT AND ORIENTED X3-4. FORGETFUL AT TIMES. CHRONIC NEUROPATHY TO BLE. PERRLA. DENIES HEADACHE/VISION CHANGES. OVERALL WEAK. ABLE TO MOVE ALL EXTREMITIES EQUALLY. TELE SHOWING SR WITH HR 70-100'S. DENIES CHEST PAIN/PRESSURE/PAPLITATIONS. BP STABLE. PPP. SC HEPARIN GIVEN THIS AM. ON ROOM AIR SATING ABOVE 95%. LUNGS SOUNDING CLEAR. EVEN AND UNLABORED RESPIRATIONS. DENIES SOB/COUGH. SPEECH THERAPY IN TO SEE PATIENT THIS AM. OCCASIONAL COUGHING WHEN EATING. BOWEL TONES PRESENT. STATES SHE OCCASIONALLY HAS INTERMIT ABDOMINAL PAIN. ATTENDS IN PLACE. PURWICK PATENT AND DRAINING CLEAR/YELLOW URINE. Q2 TURNING AND NEEDED. Q4 BLOOD SUGARS, MORNING BLOOD SUGAR 325, PATIENT STATES SHE TAKES 20 UNITS OF LONG ACTING INSULIN AT HOME. DR. RODRIGUEZ CALLED. ORDERS FOR THIS RN TO PLACE. 20 UNITS INSULIN GLARGINE SC DAILY, STARTING 11/[address], INSULIN GIVEN. PATIENT DENIES NEEDS AT THIS TIME, WATCHING TV IN BED, CALL LIGHT IN REACH.
[2023-04-24 11:35] VITALS: BP 154/55
--- NOTE | 2023-04-24 12:01 | NUR ---
AFTERNOON BLOOD SUGAR ELEVATED AT 466. DR. RODRIGUEZ CALLED AND NEW ORDERS FOR THIS RN TO PLACE INCLUDE: MEDIUM SLIDING SCALE INSULIN LISPRO SC ACHS STARTING NOW WELL BLOOD SUGAR CHECKS ACHS.
--- NOTE | 2023-04-24 12:32 | NUR ---
MARTY HAWTHORNE AT BEDSIDE, THIS RN PROVIDED UPDATED. HOLDING PATIENTS LUNCH AT THIS TIME DUE TO BLOOD SUGAR OF 466. SHORT ACTING INSULIN GIVEN PER EMAR.
--- NOTE | 2023-04-24 13:34 | NUR ---
BLOOD SUGAR INCREASED TO [address] RODRIGUEZ CALLED AND UPDATED. ORDERS FOR ADDITIONAL 5 UNITS OF INSULIN LISPRO NOW AND TO CHANGE CURRENT INSULIN LISPRO TO HIGH SLIDING SCALE. ORDERS IN PLACE. ADDITIONAL 5 UNITS GIVEN. DAUGHTER REMAINS AT BEDSIDE.
[2023-04-24 16:07] VITALS: BP 159/65
--- NOTE | 2023-04-24 18:00 | NUR ---
PT ARRIVED ON UNIT VIA W/C AROUND 1750. PT TRANSFERED 1P TO BED. PT AND FAMILY ORIENTED TO ROOM. PUREWICK IN PLACE. PT LEFT IN A POSITION OF SAFETY. CALL LIGHT WITHIN REACH. NO ACUTE EVENTS AT THIS TIME.
--- NOTE | 2023-04-24 18:09 | NUR ---
TRANSFER TO MEDICAL 306: NO ACUTE CHANGES SEE PREVIOUS NOTES. PATIENT BLOOD SUGAR TRENDING DOWN. DAUGHTER REMAINS AT BEDSIDE. VITAL SIGNS STABLE. UP WITH SBA TO WHEELCHAIR TO TRANSFER. TELE CONTINUES TO SHOW SR WITH HR 80-90'S. TRANSFERED WITH ALL PERSONAL BELONGINGS.
[2023-04-24 19:34] VITALS: BP 160/63
[2023-04-25 03:53] VITALS: BP 157/69
[2023-04-25 04:34] LABS: Base Excess Venous 3.4 mmol/L; Bicarbonate Venous 27.2 mmol/L (24.0-30.0); PCO2 Venous 40.7 mmHg (38-42); pH Blood Venous 7.44 (7.34-7.37)
[2023-04-25 04:46] LABS: BASOPHILS ABSOLUTE AUTO 0.01 K/mm3 (0.00-0.23); BASOPHILS PERCENT AUTO 0 % (0-2); EOSINOPHILS PERCENT AUTO 0 % (0-6); Hematocrit 35.6 % (33.0-51.0); Hemoglobin 11.3 g/dL (11.5-16.0); IMMATURE GRAN ABSOLUTE AUTO 0.05 K/mm3 (0.00-0.10); IMMATURE GRAN PERCENT AUTO 1 % (0-1); LYMPHOCYTES ABSOLUTE AUTO 1.77 K/mm3 (0.84-5.20); LYMPHOCYTES PERCENT AUTO 17 % (21-46); MONOCYTES ABSOLUTE AUTO 0.61 K/mm3 (0.16-1.47); MONOCYTES PERCENT AUTO 6 % (4-13); Mean Corpuscular HGB Conc 31.7 g/dL (31.5-36.5); Mean Corpuscular Volume 92 fL (80-100); Mean Platelet Volume 10.5 fL (9.1-12.4); NEUTROPHILS ABSOLUTE AUTO 8.18 K/mm3 (1.96-9.15); NEUTROPHILS PERCENT AUTO 77 % (41-73); Platelet Count 272 K/mm3 (150-400); RDW Coefficient Variation 17.2 % (11.7-14.2); RDW Standard Deviation 56.9 fL (35.1-46.3); Red Blood Cell Count 3.89 M/mm3 (3.80-5.20); White Blood Cell Count 10.62 K/mm3 (4.00-11.30)
[2023-04-25 05:14] LABS: Bun/Creatinine Ratio 30.3 (12.0-20.0); Calcium, Blood 8.7 mg/dL (8.5-10.1); Creatinine, Blood 2.41 mg/dL (0.40-1.00); Potassium, Blood 5.2 mmol/L (3.5-5.5)
--- NOTE | 2023-04-25 05:35 | NUR ---
SHIFT SUMMARY PT LAYING IN BED DURING BEDSIDE ROUNDS, PT DENIES PAIN, PUREWICK IN PLACE, TELE MONITORED PT USES CALL LIGHT APPROPRIATELY- PT TOOK HS MEDS WITHOUT PROBLEMS, PT REQUESTED HOME DOSE PAMELOR TO HELP WITH SLEEP- CALL TO [employer]OL HEATING INSTALLER- ORDERED AND GIVEN- PT ABLE TO SLEEP ONCE TAKEN- PUREWICK CONTINUES TO BE IN PLACE= CLEAR YELLOW URINE, PT UP TO BSC FOR BM- PT TRANSFERS GOOD WITH FWW SBA- BED LOW POSITION, CALL LIGHT WITHIN REACH, BED ALARM IN PLACE
[2023-04-25 07:21] VITALS: BP 172/74
[2023-04-25] MEDS ORDERED: JARDIANCE10 MG PO (11:28)
[2023-04-25] MEDS ORDERED: HUMALOG KW100 UNIT/1 SC (11:31)
--- NOTE | 2023-04-25 15:19 | NUR ---
PT AWAKE THIS AM DURING SHIFT REPORT. PT IMPROVED FROM ADMISSION, NOW A&O. UP TO EOB ON HER OWN TO EAT BREAKFAST. UP TO CHAIR AT BS AFTER BREAKFAST USING FWW AND SBA. DR RODRIGUEZ IN TO SEE PT EARLY, DISCUSSED PLAN OF CARE. D/C ORDERS PLACED. PT UP TO BTHRM TO VOID; MOSTLY INCONTINENT OF URINE. PT'S FAMILY NOTIFIED OF D/C ORDERS AND SON LATER TO TO PUBLIC RECORDS OFFICER PT. D/C INSTRUCTIONS REVIEWED WITH PT; VERBALIZED UNDERSTANDING. PT ASSISTED OUT TO SON'S CAR VIA W/C. BELONGINGS IN HAND.
== END 2023-04-25 14:10 | disposition home or self-care (01) | DRG 291 ==
LOC: ER 21:06 → PCU 04-23 00:54 → MEDS 04-24 17:46
PROVIDERS: Internal Medicine; Student in an Organized Health Care Education/Training Program; ADMIT Internal Medicine
PROC: 5A09357 Assistance with Respiratory Ventilation, Less than 24 Consecutive Hours, Continuous Positive Airway Pressure (ICD-10-PCS; principal; 2023-04-22)
DX: I50.43 Acute on chronic combined systolic (congestive) and diastolic (congestive) heart failure (principal); G92.8 Other toxic encephalopathy; J96.01 Acute respiratory failure with hypoxia; J96.02 Acute respiratory failure with hypercapnia; N18.5 Chronic kidney disease, stage 5; E87.1 Hypo-osmolality and hyponatremia; E87.29 Other acidosis; N17.9 Acute kidney failure, unspecified; J44.9 Chronic obstructive pulmonary disease, unspecified; E11.22 Type 2 diabetes mellitus with diabetic chronic kidney disease; E87.5 Hyperkalemia; I34.0 Nonrheumatic mitral (valve) insufficiency; I25.10 Atherosclerotic heart disease of native coronary artery without angina pectoris; E11.649 Type 2 diabetes mellitus with hypoglycemia without coma; M10.9 Gout, unspecified; D63.1 Anemia in chronic kidney disease; T38.3X5A Adverse effect of insulin and oral hypoglycemic [antidiabetic] drugs, initial encounter; E11.65 Type 2 diabetes mellitus with hyperglycemia; Z79.4 Long term (current) use of insulin; Z79.02 Long term (current) use of antithrombotics/antiplatelets; Z79.82 Long term (current) use of aspirin; Z11.52 Encounter for screening for COVID-19; Z95.5 Presence of coronary angioplasty implant and graft
CPT/HCPCS: 0241U; 36415; 70450; 71046; 80048; 80053; 82803; 82947; 83735; 83880; 84132; 84443; 84484; 85025; 92610; 93005; 93010; 94640; 94660; 94664; 94760; 94762; 96374; 96375; 99285-25; A9270; J0612; J1610; J1644; J1815; J2920; J7512

== ENCOUNTER 2023-04-27 03:28 | Inpatient (IN) | payer MEDICARE ==
[~2023-04-27] VITALS: Ht 152.4 cm; Wt 75.4 kg
[~2023-04-27 03:28] MED LIST changes: +JARDIANCE10 MG PO
[2023-04-27 04:19] LABS: BASOPHILS ABSOLUTE AUTO 0.03 K/mm3 (0.00-0.23); BASOPHILS PERCENT AUTO 0 % (0-2); EOSINOPHILS ABSOLUTE AUTO 0.31 K/mm3 (0.00-0.68); EOSINOPHILS PERCENT AUTO 2 % (0-6); Hematocrit 38.7 % (33.0-51.0); Hemoglobin 11.9 g/dL (11.5-16.0); IMMATURE GRAN ABSOLUTE AUTO 0.11 K/mm3 (0.00-0.10); IMMATURE GRAN PERCENT AUTO 1 % (0-1); LYMPHOCYTES PERCENT AUTO 13 % (21-46); MONOCYTES ABSOLUTE AUTO 1.05 K/mm3 (0.16-1.47); MONOCYTES PERCENT AUTO 6 % (4-13); Mean Corpuscular HGB 28.8 pg (26.0-34.0); Mean Corpuscular HGB Conc 30.7 g/dL (31.5-36.5); Mean Corpuscular Volume 94 fL (80-100); Mean Platelet Volume 10.7 fL (9.1-12.4); NEUTROPHILS PERCENT AUTO 78 % (41-73); Platelet Count 262 K/mm3 (150-400); RDW Coefficient Variation 17.3 % (11.7-14.2); Red Blood Cell Count 4.13 M/mm3 (3.80-5.20)
[2023-04-27 04:34] LABS: Albumin, Blood 2.8 g/dL (3.4-5.0); Albumin/Globulin Ratio 0.7 (0.8-1.8); Bilirubin, Total 0.6 mg/dL (0.1-1.0); Calcium, Blood 8.5 mg/dL (8.5-10.1); Creatinine, Blood 1.59 mg/dL (0.40-1.00); Potassium, Blood 4.7 mmol/L (3.5-5.5); Total Protein, Blood 6.8 g/dL (6.4-8.2)
[2023-04-27 05:11] LABS: Influenza A, PCR NEGATIVE (NEGATIVE); Influenza B, PCR NEGATIVE (NEGATIVE); Resp Syncytial Virus, PCR NEGATIVE (NEGATIVE); SARS-Cov-2 (COVID-19) PCR, MMC NEGATIVE (NEGATIVE)
[2023-04-27 08:47] VITALS: BP 174/81
[2023-04-27 15:47] VITALS: BP 158/80
[2023-04-27 15:48] VITALS: BP 158/80
--- NOTE | 2023-04-27 17:28 | NUR ---
SHIFT SUMMARY: PT A&O X4. PLEASANT AND COOPERATIVE WITH CARE. PUREWICK IN PLACE DRAINING YELLOW URINE. RECEIVING IV LASIX BID. 1+ EDEMA TO BLE. TELE IN PLACE RUNNING SINUS TACHY. PT FELT NAUSEOUS DURING LUNCH. ZOFRAN GIVEN AND PT ABLE TO SLEEP COMFORTABLY FOR SEVERAL HOURS. AC/HS BLOOD SUGARS. PROVIDING MEDIUM SLIDING SCALE INSULIN PER EMAR. ON 2L MAINTAINING SATS >95%. PT HAS SMALL SCRATCH/SKIN TEAR ON OUTSIDE OF RIGHT LOWER LEG. DR. CROW ARRIVED THIS EVENING TO TALK TO PT AND FAMILY. PLAN TO MONITOR OVERNIGHT AND POSSIBLE D/C TOMORROW. FAMILY AT BEDSIDE. CALL LIGHT IN REACH. BED IN LOWEST POSITION.
[2023-04-27 19:12] VITALS: BP 143/69
[2023-04-28 05:13] VITALS: BP 132/67
[2023-04-28 05:37] LABS: BASOPHILS ABSOLUTE AUTO 0.03 K/mm3 (0.00-0.23); BASOPHILS PERCENT AUTO 0 % (0-2); EOSINOPHILS ABSOLUTE AUTO 0.76 K/mm3 (0.00-0.68); EOSINOPHILS PERCENT AUTO 7 % (0-6); Hematocrit 39.4 % (33.0-51.0); Hemoglobin 12.1 g/dL (11.5-16.0); IMMATURE GRAN ABSOLUTE AUTO 0.04 K/mm3 (0.00-0.10); IMMATURE GRAN PERCENT AUTO 0 % (0-1); LYMPHOCYTES ABSOLUTE AUTO 3.05 K/mm3 (0.84-5.20); LYMPHOCYTES PERCENT AUTO 26 % (21-46); MONOCYTES ABSOLUTE AUTO 0.75 K/mm3 (0.16-1.47); MONOCYTES PERCENT AUTO 6 % (4-13); Mean Corpuscular HGB Conc 30.7 g/dL (31.5-36.5); Mean Corpuscular Volume 95 fL (80-100); Mean Platelet Volume 10.6 fL (9.1-12.4); NEUTROPHILS ABSOLUTE AUTO 7.08 K/mm3 (1.96-9.15); NEUTROPHILS PERCENT AUTO 61 % (41-73); Platelet Count 246 K/mm3 (150-400); RDW Coefficient Variation 17.5 % (11.7-14.2); RDW Standard Deviation 60.1 fL (35.1-46.3); Red Blood Cell Count 4.17 M/mm3 (3.80-5.20); White Blood Cell Count 11.71 K/mm3 (4.00-11.30)
[2023-04-28 05:59] LABS: Albumin, Blood 2.4 g/dL (3.4-5.0); Anion Gap 3 mmol/L (6-16); Blood Urea Nitrogen 54 mg/dL (8-24); CO2, Blood 32 mmol/L (21-32); Calcium, Blood 8.6 mg/dL (8.5-10.1); Chloride, Blood 107 mmol/L (98-108); Creatinine, Blood 1.74 mg/dL (0.40-1.00); Glomerular Filtration Rate 28 (60-); Glucose, Blood 85 mg/dL (70-99); Phosphorus, Blood 3.3 mg/dL (2.5-4.9); Potassium, Blood 4.4 mmol/L (3.5-5.5); Sodium, Blood 142 mmol/L (136-145)
--- NOTE | 2023-04-28 06:05 | NUR ---
SHIFT SUMMARY 87 YR F ADMITTED ON 04/27/23 FOR CHF EXACERBATION. FULL CODE. NO ACUTE CHANGES THIS SHIFT. PT HAS SLEPT FOR MOST OF THIS SHIFT. SHE C/O NAUSEA AROUND MIDNIGHT AND WAS GIVEN ZOFRAN PER EMAR. SHE HAS SLEPT FOR THE REST OF THE SHIFT. BLOOD SUGAR WAS STABLE THIS SHIFT AND NO INSULIN COVERAGE WAS INDICATED.
[2023-04-28 07:12] VITALS: BP 146/89
[2023-04-28 09:51] LABS: Source, Urine Clean Catch
[2023-04-28 09:56] LABS: Appearance, Urine Clear (Clear); Bilirubin, Urine Neg (Neg); Blood, Urine 2+ (Neg); Glucose Qualitative, Urine 3+ (Neg); Ketones, Urine Neg (Neg); Leukocyte Esterase, Urine 1+ (Neg); Nitrite, Urine Neg (Neg); Protein, Urine 3+ (Neg); Urobilinogen, Urine NORM (Normal)
[2023-04-28 10:06] LABS: Color, Urine Pale Yellow (P-Yellow)
[2023-04-28 10:08] LABS: Bacteria Rare /hpf; Squamous Epithelial Cells Rare /hpf (Few)
--- NOTE | 2023-04-28 14:37 | NUR ---
assumed care of pt a/o UA sent to lab, had no issues transfering to BSC. explained the need to avoid purwic for discharge and pt agreed, so far she has called to use bsc without incident.
[2023-04-28 16:13] VITALS: BP 149/73
--- NOTE | 2023-04-28 18:09 | NUR ---
SHIFT SUMMARY: PT A&O X4. PLEASANT AND COOPERATIVE WITH CARE. PT C/O NAUSEA TWICE THIS SHIFT. ZOFRAN GIVEN PER EMAR. PT ALSO C/O BURNING W/ URINATION. TALKED TO DR. CROW WHO ORDERED URINALYSIS W/ CULTURE. PENDING CULTURE AT THIS TIME. PT UP IN CHAIR FOR BREAKFAST AND DINNER. SB ASSIST W/FWW AND GB. PT CONTINENT/INCONTINENT. PUREWICK IN ROOM BUT NOT ON PATIENT AT THIS TIME PT IS ABLE TO GET OOB TO WALK TO RESTROOM. TELE IN PLACE RUNNING SINUS TACHY. CALL LIGHT IN REACH. BED IN LOWEST POSITION.
[2023-04-28 19:52] VITALS: BP 149/72
--- NOTE | 2023-04-28 23:20 | NUR ---
DANCE COACH SUMMARY VSS. O2 AT 2L/MIN PER NC. HOB ELEVATED. PUREWICK IN PLACE. HAS BEEN RESTING QUIETLY WITH FEW INTERRUPTIONS. CALL LIGHT IN REACH. WILL CONTINUE TO MONITOR.
[2023-04-29 04:43] VITALS: BP 168/86
[2023-04-29 05:44] LABS: BASOPHILS ABSOLUTE AUTO 0.03 K/mm3 (0.00-0.23); BASOPHILS PERCENT AUTO 0 % (0-2); EOSINOPHILS ABSOLUTE AUTO 0.84 K/mm3 (0.00-0.68); EOSINOPHILS PERCENT AUTO 8 % (0-6); Hemoglobin 11.1 g/dL (11.5-16.0); IMMATURE GRAN ABSOLUTE AUTO 0.03 K/mm3 (0.00-0.10); IMMATURE GRAN PERCENT AUTO 0 % (0-1); LYMPHOCYTES ABSOLUTE AUTO 2.49 K/mm3 (0.84-5.20); LYMPHOCYTES PERCENT AUTO 24 % (21-46); MONOCYTES ABSOLUTE AUTO 0.68 K/mm3 (0.16-1.47); MONOCYTES PERCENT AUTO 7 % (4-13); Mean Corpuscular HGB 28.6 pg (26.0-34.0); Mean Corpuscular HGB Conc 30.8 g/dL (31.5-36.5); Mean Corpuscular Volume 93 fL (80-100); Mean Platelet Volume 10.7 fL (9.1-12.4); NEUTROPHILS ABSOLUTE AUTO 6.32 K/mm3 (1.96-9.15); NEUTROPHILS PERCENT AUTO 61 % (41-73); Platelet Count 207 K/mm3 (150-400); RDW Coefficient Variation 17.1 % (11.7-14.2); RDW Standard Deviation 57.8 fL (35.1-46.3); Red Blood Cell Count 3.88 M/mm3 (3.80-5.20); White Blood Cell Count 10.39 K/mm3 (4.00-11.30)
[2023-04-29 07:16] LABS: Albumin, Blood 2.3 g/dL (3.4-5.0); Anion Gap 14 mmol/L (6-16); Blood Urea Nitrogen 38 mg/dL (8-24); Bun/Creatinine Ratio 21.1 (12.0-20.0); CO2, Blood 22 mmol/L (21-32); Calcium, Blood 8.4 mg/dL (8.5-10.1); Chloride, Blood 103 mmol/L (98-108); Glomerular Filtration Rate 27 (60-); Glucose, Blood 144 mg/dL (70-99); Phosphorus, Blood 4.5 mg/dL (2.5-4.9); Potassium, Blood 4.1 mmol/L (3.5-5.5); Sodium, Blood 139 mmol/L (136-145)
[2023-04-29 07:18] VITALS: BP 170/80
[2023-04-29 15:18] VITALS: BP 141/64
--- NOTE | 2023-04-29 16:39 | NUR ---
SHIFT SUMMARY PATIENT SLEEPY AT START OF SHIFT. PATIENT STATES SHE DID NOT SLEEP WELL. DAUGHTER IN LATER IN THE SHIFT ASKING QUESTIONS RELATED TO PATIENT'S TREATMENT PLAN. DISCUSSED PATIENT'S CONDITION WITH PATIENT AND DAUGHTER. EDUCATED ON ANTIBIOTICS, UTI, LASIX, FLUID INTAKE, BLOOD SUGAR CONTROL, URINARY RETENTION, AND SLEEP DISTURBANCES. VAGINAL AREA CHECKED WITH DR CROW RELATED TO BURNING OF SKIN. NO REDNESS OR SWELLING NOTED. DISCUSSED PLAN TO DISCHARGE IN AM IF NO FURTHER COMPLICATIONS. REVIEWED WITH PATIENT AND FAMILY PRELIMINARY CULTURE RESULTS NEGATIVE FOR UTI. PATIENT HAS PUREWICK IN PLACE FOR INCONTINENCE.
[2023-04-29 20:30] VITALS: BP 154/67
[2023-04-30 02:13] VITALS: BP 142/69
--- NOTE | 2023-04-30 03:30 | NUR ---
PT A&O X4, COOPERATIVE WITH CARE. CURRENTLY ON 1 L O2 WITH SATS ABOVE 95. DENIES ANY SOB. TELEMETRY: SR @ 89. PT IS INCONTINENT WITH PUREWICK IN PLACE DRAINING YELLOW URINE. PT COMPLAINS OF NAUSEA AND HEADACHE--MEDICATED PER EMAR. BED KEPT IN THE LOWEST POSITION WITH CALL LIGHT IN REACH. WILL CONTINUE TO MONITOR.
[2023-04-30 05:39] LABS: BASOPHILS ABSOLUTE AUTO 0.03 K/mm3 (0.00-0.23); BASOPHILS PERCENT AUTO 0 % (0-2); EOSINOPHILS ABSOLUTE AUTO 0.68 K/mm3 (0.00-0.68); EOSINOPHILS PERCENT AUTO 7 % (0-6); Hemoglobin 11.7 g/dL (11.5-16.0); IMMATURE GRAN ABSOLUTE AUTO 0.04 K/mm3 (0.00-0.10); IMMATURE GRAN PERCENT AUTO 0 % (0-1); LYMPHOCYTES ABSOLUTE AUTO 2.54 K/mm3 (0.84-5.20); LYMPHOCYTES PERCENT AUTO 24 % (21-46); MONOCYTES ABSOLUTE AUTO 0.81 K/mm3 (0.16-1.47); MONOCYTES PERCENT AUTO 8 % (4-13); Mean Corpuscular HGB 28.6 pg (26.0-34.0); Mean Corpuscular HGB Conc 30.8 g/dL (31.5-36.5); Mean Corpuscular Volume 93 fL (80-100); NEUTROPHILS ABSOLUTE AUTO 6.42 K/mm3 (1.96-9.15); NEUTROPHILS PERCENT AUTO 61 % (41-73); Platelet Count 200 K/mm3 (150-400); RDW Coefficient Variation 17.1 % (11.7-14.2); RDW Standard Deviation 58.3 fL (35.1-46.3); Red Blood Cell Count 4.09 M/mm3 (3.80-5.20); White Blood Cell Count 10.52 K/mm3 (4.00-11.30)
[2023-04-30 06:26] LABS: Albumin, Blood 2.3 g/dL (3.4-5.0); Anion Gap 7 mmol/L (6-16); Blood Urea Nitrogen 48 mg/dL (8-24); Bun/Creatinine Ratio 28.6 (12.0-20.0); CO2, Blood 30 mmol/L (21-32); Calcium, Blood 8.6 mg/dL (8.5-10.1); Chloride, Blood 101 mmol/L (98-108); Creatinine, Blood 1.68 mg/dL (0.40-1.00); Glomerular Filtration Rate 29 (60-); Glucose, Blood 88 mg/dL (70-99); Magnesium, Blood 2.2 mg/dL (1.6-2.4); Sodium, Blood 138 mmol/L (136-145)
[2023-04-30 07:44] VITALS: BP 159/74
--- NOTE | 2023-04-30 14:30 | NUR ---
SHIFT SUMMARY AND DISCHARGE PATIENT DISCHARGED HOME. DAUGHTER PRESENT FOR DISCHARGE INSTRUCTIONS. DAUGHTER RELUCTANT TO GIVE MEDICATIONS PER DISCHARGE INSTRUCTIONS. DAUGHTER NOT WANTING TO GIVE JARDIANCE ORDERED. PATIENT ABLE TO AMBULATE TO BATHROOM AND DRESS FOR DISCHARGE WITH WALKER AND STAND BY ASSIST. PATIENT ALERT AND INTERACTIVE BUT ADMITTS THAT SHE IS FORGETFUL. PATIENT OFF OXYGEN AND ABLE TO MAINTAIN BIOX ABOVE 92 EVEN WITH ACTIVITY. PATIENT DOES NOT WEAR OXYGEN AT HOME. PATIENT DISCHARGED HOME WITHOUT O2. IV DC'D. ROOM CHECK DONE BEFORE PATIENT DEPARTED AND PATIENT TRANSPORTED OUT VIA WHEELCHAIR BY GIOVANNY.
[2023-04-30] MEDS ORDERED: ONDA4ODT MM (14:34)
[2023-04-30] MEDS ORDERED: FAMO10 PO (14:34)
== END 2023-04-30 15:20 | disposition home health service (06) | DRG 291 ==
LOC: ER 03:28 → MEDS 03:29
PROVIDERS: Internal Medicine; Student in an Organized Health Care Education/Training Program; ADMIT Internal Medicine
DX: I50.23 Acute on chronic systolic (congestive) heart failure (principal); J96.01 Acute respiratory failure with hypoxia; N17.9 Acute kidney failure, unspecified; R30.0 Dysuria; N18.30 Chronic kidney disease, stage 3 unspecified; J44.9 Chronic obstructive pulmonary disease, unspecified; I34.0 Nonrheumatic mitral (valve) insufficiency; E86.0 Dehydration; I25.10 Atherosclerotic heart disease of native coronary artery without angina pectoris; E11.22 Type 2 diabetes mellitus with diabetic chronic kidney disease; M10.9 Gout, unspecified; Z90.49 Acquired absence of other specified parts of digestive tract; Z95.5 Presence of coronary angioplasty implant and graft; Z90.710 Acquired absence of both cervix and uterus; Z79.51 Long term (current) use of inhaled steroids; Z79.01 Long term (current) use of anticoagulants; Z79.4 Long term (current) use of insulin; Z11.52 Encounter for screening for COVID-19; Z79.899 Other long term (current) drug therapy
CPT/HCPCS: 0241U; 36415; 71045; 80053; 80069; 81001; 82947; 83735; 83880; 84145; 85025; 87086; 93005; 93010; 94760; 94761; 96374; 99285-25; A9270; J1644; J1815; J1940; J2405

== ENCOUNTER → 2023-05-08 | Outpatient (CLI) | payer MEDICARE ==
[~2023-05-08] MED LIST changes: +FAMO10 PO
== END ==
LOC: LAB 09:35 → LAB SHORT 09:35
DX: N39.0 Urinary tract infection, site not specified (principal)
CPT/HCPCS: 87086

== ENCOUNTER → 2023-05-21 | Outpatient (CLI) | payer MEDICARE | LOC: LAB 12:59 → LAB SHORT 12:59 | DX: N39.0 Urinary tract infection, site not specified (principal) | CPT/HCPCS: 87086 ==

== ENCOUNTER → 2023-09-30 | Outpatient (CLI) | payer MEDICARE | LOC: LAB SHORT 11:19 → LAB 11:19 | DX: N39.0 Urinary tract infection, site not specified (principal) | CPT/HCPCS: 87086 ==

== ENCOUNTER 2023-12-07 09:22 | Inpatient (IN) | payer MEDICARE ==
[~2023-12-07] VITALS: Ht 152.4 cm; Wt 70.8 kg
[~2023-12-07 09:22] MED LIST changes: -ATOR20 PO; +ATOR40TA PO; +METO100ER PO; -METO50ER PO; -TRESIBA FL100 UNIT/2 SC; +TRESIBA FL200 UNIT/2 SC
[2023-12-07 09:56] LABS: BASOPHILS ABSOLUTE AUTO 0.02 K/mm3 (0.00-0.23); BASOPHILS PERCENT AUTO 0 % (0-2); EOSINOPHILS ABSOLUTE AUTO 0.36 K/mm3 (0.00-0.68); EOSINOPHILS PERCENT AUTO 3 % (0-6); Hematocrit 29.3 % (33.0-51.0); IMMATURE GRAN ABSOLUTE AUTO 0.06 K/mm3 (0.00-0.10); IMMATURE GRAN PERCENT AUTO 1 % (0-1); LYMPHOCYTES ABSOLUTE AUTO 2.32 K/mm3 (0.84-5.20); LYMPHOCYTES PERCENT AUTO 21 % (21-46); MONOCYTES ABSOLUTE AUTO 0.77 K/mm3 (0.16-1.47); MONOCYTES PERCENT AUTO 7 % (4-13); Mean Corpuscular HGB 28.1 pg (26.0-34.0); Mean Corpuscular HGB Conc 30.7 g/dL (31.5-36.5); Mean Corpuscular Volume 92 fL (80-100); Mean Platelet Volume 11.1 fL (9.1-12.4); NEUTROPHILS ABSOLUTE AUTO 7.67 K/mm3 (1.96-9.15); NEUTROPHILS PERCENT AUTO 69 % (41-73); Platelet Count 271 K/mm3 (150-400); RDW Standard Deviation 63.9 fL (35.1-46.3)
[2023-12-07 10:23] LABS: Albumin, Blood 1.9 g/dL (3.4-5.0); Albumin/Globulin Ratio 0.4 (0.8-1.8); Bilirubin, Total 0.3 mg/dL (0.1-1.0); Bun/Creatinine Ratio 30.7 (12.0-20.0); Calcium, Blood 8.1 mg/dL (8.5-10.1); Creatinine, Blood 3.36 mg/dL (0.40-1.00); Globulin, Blood 4.8 g/dL (2.2-4.0); Potassium, Blood 5.4 mmol/L (3.5-5.5); Total Protein, Blood 6.7 g/dL (6.4-8.2)
[2023-12-07 10:30] LABS: Source, Urine Straight Cath
[2023-12-07 10:35] LABS: Appearance, Urine Cloudy (Clear); Bilirubin, Urine Neg (Neg); Blood, Urine 5+ (Neg); Color, Urine Yellow (P-Yellow); Glucose Qualitative, Urine Neg (Neg); Ketones, Urine Neg (Neg); Leukocyte Esterase, Urine 3+ (Neg); Nitrite, Urine Neg (Neg); Protein, Urine 3+ (Neg); Urobilinogen, Urine NORM (Normal)
[2023-12-07 10:43] LABS: Bacteria Many /hpf; Red Blood Cells, Urine 25-50 /hpf (0-2); Squamous Epithelial Cells Few /hpf (Few); White Blood Cells, Urine TNTC /hpf (0-5)
[2023-12-07] MEDS ORDERED: CefTRIAXone Sodium 1,000 MG in NS 50 ML IV ONE (11:00)
[2023-12-07] MEDS ORDERED: NS 1,000 ML IV SCH (11:20)
[2023-12-07] MEDS ORDERED: PREGABALIN100 MG PO (16:36)
[2023-12-07 17:08] VITALS: BP 122/68
[2023-12-07] MEDS ORDERED: Albuterol HFA200 ACT/6.7 GM INH INH PRN (17:15)
[2023-12-07] MEDS ORDERED: Ondansetron 4 MG SoluTab MM PRN (17:20)
[2023-12-07] MEDS ORDERED: Metoprolol Tartrate 50 MG Tab PO ONE (18:00)
[2023-12-07] MEDS ORDERED: Acetaminophen 325 MG TABLET PO PRN (18:45)
[2023-12-07 20:18] VITALS: BP 132/52
[2023-12-08 04:32] VITALS: BP 120/63
[2023-12-08] MEDS ORDERED: Miconazole Nitrate 2% 85 GM PWD TOP SCH (05:35)
[2023-12-08 05:42] LABS: BASOPHILS ABSOLUTE AUTO 0.02 K/mm3 (0.00-0.23); BASOPHILS PERCENT AUTO 0 % (0-2); EOSINOPHILS ABSOLUTE AUTO 0.25 K/mm3 (0.00-0.68); EOSINOPHILS PERCENT AUTO 3 % (0-6); Hematocrit 27.8 % (33.0-51.0); Hemoglobin 8.5 g/dL (11.5-16.0); IMMATURE GRAN PERCENT AUTO 1 % (0-1); LYMPHOCYTES ABSOLUTE AUTO 2.49 K/mm3 (0.84-5.20); LYMPHOCYTES PERCENT AUTO 26 % (21-46); MONOCYTES ABSOLUTE AUTO 0.74 K/mm3 (0.16-1.47); MONOCYTES PERCENT AUTO 8 % (4-13); Mean Corpuscular HGB 28.1 pg (26.0-34.0); Mean Corpuscular HGB Conc 30.6 g/dL (31.5-36.5); Mean Corpuscular Volume 92 fL (80-100); Mean Platelet Volume 10.9 fL (9.1-12.4); NEUTROPHILS ABSOLUTE AUTO 6.13 K/mm3 (1.96-9.15); NEUTROPHILS PERCENT AUTO 63 % (41-73); Platelet Count 276 K/mm3 (150-400); RDW Coefficient Variation 19.1 % (11.7-14.2); RDW Standard Deviation 63.3 fL (35.1-46.3); Red Blood Cell Count 3.03 M/mm3 (3.80-5.20); White Blood Cell Count 9.73 K/mm3 (4.00-11.30)
[2023-12-08 06:09] LABS: Albumin, Blood 1.7 g/dL (3.4-5.0); Albumin/Globulin Ratio 0.4 (0.8-1.8); Bilirubin, Total 0.3 mg/dL (0.1-1.0); Bun/Creatinine Ratio 29.9 (12.0-20.0); Calcium, Blood 7.8 mg/dL (8.5-10.1); Creatinine, Blood 2.94 mg/dL (0.40-1.00); Globulin, Blood 4.6 g/dL (2.2-4.0); Potassium, Blood 5.3 mmol/L (3.5-5.5); Total Protein, Blood 6.3 g/dL (6.4-8.2)
--- NOTE | 2023-12-08 06:40 | NUR ---
SHIFT SUMMARY PT IS A&OX3, CONFUSED AND FORGETFUL AT TIMES. AWAKE MUCH OF THE NIGHT. VSS ON RA. PT'S EYESIGHT IS VERY POOR. PAIN IN PELVIC AREA AND BURNING WITH URINATION. MANAGED WITH 650 MG PO TYLENOL. RIGHT SIDE ABD FOLD AND GROIN AREA RED AND YEASTY. CLEANED WELL AND APPLIED DESENEX POWDER. X1 ASSIST WITH FWW, PER PT. WICKING SYSTEM DRAINING ADEQUATE AMOUNTS OF CLOUDY, MALODOROUS, YELLOW URINE. NO BM THIS SHIFT. BRIEF IN PLACE AND CHANGED NEEDED. BED IN LOWEST POSITION, CALL LIGHT WITHIN REACH. BED ALARM SET FOR PT'S SAFETY.
[2023-12-08 07:22] VITALS: BP 114/60
[2023-12-08] MEDS ORDERED: Insulin Human Lispro 100 Units/ML 3ML Syringe SC SCH ×2 (07:30→16:30)
[2023-12-08] MEDS ORDERED: NS 250 ML IV PRN (08:05)
[2023-12-08] MEDS ORDERED: Enoxaparin 30 MG/0.3 ML SYR SC SCH (09:00)
[2023-12-08] MEDS ORDERED: Metoprolol Succinate 50 MG TABCR PO SCH ×2 (09:00→10:00)
[2023-12-08] MEDS ORDERED: Atorvastatin 40 MG Tab PO SCH (09:00)
[2023-12-08] MEDS ORDERED: Cholecalciferol 1000 Unit Tablet (=25MCG) PO SCH (09:00)
[2023-12-08] MEDS ORDERED: CefTRIAXone Sodium 1,000 MG in NS 100 ML IV SCH (09:00)
[2023-12-08] MEDS ORDERED: Insulin Glargine-Yfgn 100 Unit/mL 3 ML SYR SC SCH ×2 (11:00→21:00)
[2023-12-08 15:46] VITALS: BP 132/58
--- NOTE | 2023-12-08 19:19 | NUR ---
SHIFT SUMMARY PT A&O TIMES THREE SHE REPORTS ONLY MILD PAIN WHEN URINATING. VSS STABLE, HR 94 NSR, NO SIGNS OF DISTRESS. FLUIDS GIVEN TO IMPROVE RENAL FUNCTION. DIABETIC NEW ORDERS FOR INSULIN.
[2023-12-08 20:07] VITALS: BP 131/62
[2023-12-08] MEDS ORDERED: Melatonin 5 MG Tablet PO PRN (21:20)
[2023-12-09 04:11] VITALS: BP 114/74
[2023-12-09] MEDS ORDERED: FentaNYL Citrate 50 MCG/ML 2 ML Injection IV PRN (04:50)
[2023-12-09 05:59] LABS: BASOPHILS ABSOLUTE AUTO 0.03 K/mm3 (0.00-0.23); BASOPHILS PERCENT AUTO 0 % (0-2); EOSINOPHILS PERCENT AUTO 2 % (0-6); Hematocrit 27.9 % (33.0-51.0); Hemoglobin 8.7 g/dL (11.5-16.0); IMMATURE GRAN ABSOLUTE AUTO 0.17 K/mm3 (0.00-0.10); IMMATURE GRAN PERCENT AUTO 1 % (0-1); LYMPHOCYTES ABSOLUTE AUTO 2.54 K/mm3 (0.84-5.20); LYMPHOCYTES PERCENT AUTO 17 % (21-46); MONOCYTES PERCENT AUTO 6 % (4-13); Mean Corpuscular HGB 28.5 pg (26.0-34.0); Mean Corpuscular HGB Conc 31.2 g/dL (31.5-36.5); Mean Corpuscular Volume 92 fL (80-100); Mean Platelet Volume 10.8 fL (9.1-12.4); NEUTROPHILS ABSOLUTE AUTO 10.76 K/mm3 (1.96-9.15); NEUTROPHILS PERCENT AUTO 73 % (41-73); Platelet Count 276 K/mm3 (150-400); RDW Coefficient Variation 18.9 % (11.7-14.2); RDW Standard Deviation 63.3 fL (35.1-46.3); Red Blood Cell Count 3.05 M/mm3 (3.80-5.20)
[2023-12-09 06:32] LABS: Albumin, Blood 1.8 g/dL (3.4-5.0); Albumin/Globulin Ratio 0.4 (0.8-1.8); Bilirubin, Total 0.2 mg/dL (0.1-1.0); Bun/Creatinine Ratio 27.8 (12.0-20.0); Calcium, Blood 8.2 mg/dL (8.5-10.1); Creatinine, Blood 2.81 mg/dL (0.40-1.00); Globulin, Blood 4.6 g/dL (2.2-4.0); Total Protein, Blood 6.4 g/dL (6.4-8.2)
--- NOTE | 2023-12-09 06:49 | NUR ---
SHIFT SUMMARY PT IS A&OX3, CONFUSED AND FORGETFUL AT TIMES. AWAKE MUCH OF THE NIGHT. VSS ON RA. PER TELEMETRY PT IS NSR ON THE 80'S. PT'S EYESIGHT IS VERY POOR. PAIN IN PELVIC AREA AND BURNING WITH URINATION. ADMINISTERED 650 MG PO TYLENOL WITH LITTLE EFFECT. GOT ORDER FOR IV FENTANYL, ADMINISTERED 25MCG IV FENTANYL, WITH GOOD EFFECT. X1 ASSIST WITH FWW, PER PT. WICKING SYSTEM DRAINING ADEQUATE AMOUNTS OF CLOUDY, MALODOROUS, YELLOW URINE. NO BM THIS SHIFT. BRIEF IN PLACE AND CHANGED NEEDED. BED IN LOWEST POSITION, CALL LIGHT WITHIN REACH. BED ALARM SET FOR PT'S SAFETY.
[2023-12-09 07:36] VITALS: BP 146/65
[2023-12-09] MEDS ORDERED: Insulin Glargine-Yfgn 100 Unit/mL 3 ML SYR SC SCH (09:00)
[2023-12-09] MEDS ORDERED: Insulin Human Lispro 100 Units/ML 3ML Syringe SC SCH (11:30)
[2023-12-09 15:13] VITALS: BP 136/61
--- NOTE | 2023-12-09 18:05 | NUR ---
SUMMARY- PT A/O X2-3, FORGETFUL OF YEAR. CONFUSED AND SLEEPY. SLEPT A MAJORITY OF THE DAY. NOC RN STATES SHE HADN'D SLEPT FOR 2 NIGHTS. AWAKENS TO STIM, STAYED UP AND FED HERSELF BREAKFAST. DECLINED LUNCH TODAY AND SLEPT THROUGH. WORKING WITH PHYSICAL THERAPY AND ONLY GETS TO EDGE OF BED. SNF RECOMMENDED, WATER FILTRATION TECHNICIAN WORKING WITH FAMILY AND DAUGHTER STATES SHE IS ABLE AND WILLING TO BRING HER MOM HOME. PLACED HENSLEY TODAY 1330, CAME OUT INITIALLY OPAQUE OFF WHITE, ABOUT 200ML. STAFF ENCOURAGING FLUID INTAKE. PT STAYED IN BED ALL SHIFT, Q2 TURNS. SKIN CLEANSED IN MARIOLA, APPLIED CREAM AND POWDER BID SHIS SHIFT. DAUGHTER CAME IN TODAY TO SEE PT AND WILL BE BACK TOMORROW.
[2023-12-09] MEDS ORDERED: Nortriptyline HCl 50 MG Cap PO SCH (21:00)
[2023-12-09 21:45] VITALS: BP 126/56
[2023-12-10 05:43] VITALS: BP 122/61
--- NOTE | 2023-12-10 05:53 | NUR ---
SHIFT SUMMARY PT A&OX2-3. PT ANXIOUS AND TEARFUL AT START OF SHIFT. PT STATED SHE WANTED TO GO HOME. PT REMOVED GOWN, TELE, AND HENSLEY SECUREMENT DEVICE. PT REDIRECTABLE BUT EMOTIONAL. PT REPORTED FEELING LIKE SHE NEEDED TO USE THE BATHROOM D/T FULL BLADDER FEELING. PT BLADDER SCANNED AND NO URINE NOTED. HENSLEY DRAINING PINK URINE WITH SOME SEDIMENT AND SMALL CLOTS NOTED IN TUBING. PT MEDIATED PER EMAR WITH GOOD EFFECT. BG WAS 186 AT HS. VSS. NORTRIPTYLINE STARTED AND PT ABLE TO SLEEP MOST OF THE NIGHT. BED ALARM ON. BED IN LOWEST POSITION AND CALL LIGHT IN REACH.
[2023-12-10 06:22] LABS: BASOPHILS ABSOLUTE AUTO 0.03 K/mm3 (0.00-0.23); BASOPHILS PERCENT AUTO 0 % (0-2); EOSINOPHILS ABSOLUTE AUTO 0.39 K/mm3 (0.00-0.68); EOSINOPHILS PERCENT AUTO 4 % (0-6); Hematocrit 28.2 % (33.0-51.0); Hemoglobin 8.5 g/dL (11.5-16.0); IMMATURE GRAN ABSOLUTE AUTO 0.15 K/mm3 (0.00-0.10); IMMATURE GRAN PERCENT AUTO 2 % (0-1); LYMPHOCYTES ABSOLUTE AUTO 2.94 K/mm3 (0.84-5.20); LYMPHOCYTES PERCENT AUTO 29 % (21-46); MONOCYTES ABSOLUTE AUTO 0.77 K/mm3 (0.16-1.47); MONOCYTES PERCENT AUTO 8 % (4-13); Mean Corpuscular HGB 28.1 pg (26.0-34.0); Mean Corpuscular HGB Conc 30.1 g/dL (31.5-36.5); Mean Corpuscular Volume 93 fL (80-100); Mean Platelet Volume 10.7 fL (9.1-12.4); NEUTROPHILS ABSOLUTE AUTO 5.85 K/mm3 (1.96-9.15); NEUTROPHILS PERCENT AUTO 58 % (41-73); Platelet Count 290 K/mm3 (150-400); Red Blood Cell Count 3.03 M/mm3 (3.80-5.20); White Blood Cell Count 10.13 K/mm3 (4.00-11.30)
[2023-12-10 06:55] LABS: Albumin, Blood 1.7 g/dL (3.4-5.0); Albumin/Globulin Ratio 0.4 (0.8-1.8); Bilirubin, Total 0.3 mg/dL (0.1-1.0); Bun/Creatinine Ratio 25.9 (12.0-20.0); Calcium, Blood 8.3 mg/dL (8.5-10.1); Creatinine, Blood 2.74 mg/dL (0.40-1.00); Globulin, Blood 4.7 g/dL (2.2-4.0); Potassium, Blood 5.4 mmol/L (3.5-5.5); Total Protein, Blood 6.4 g/dL (6.4-8.2)
[2023-12-10 07:40] VITALS: BP 129/54
[2023-12-10] MEDS ORDERED: Bisacodyl 10 MG Supp PR PRN (08:10)
[2023-12-10] MEDS ORDERED: Bisacodyl 5 MG TabEC PO PRN (08:10)
[2023-12-10] MEDS ORDERED: Magnesium Hydroxide Conc 10 ML UDC PO PRN (08:10)
[2023-12-10] MEDS ORDERED: Sennosides 8.6 MG Tab PO SCH (09:00)
[2023-12-10] MEDS ORDERED: NS 1,000 ML IV ONE ×2 (11:40→12:06)
[2023-12-10 15:36] VITALS: BP 125/50
--- NOTE | 2023-12-10 16:38 | NUR ---
SUMMARY- PT A/O X2-3, FREQ SLEEPING. AWAKENS TO VERBAL. SITS UP AND FEEDS SELF. TOLERATING FOOD FAIR ABOUT 30% OF MEALS AND TAKING IN FLUIDS SPARINGLY. STARTED ON IVF NS AT 100ML/HR. HENSLEY DRAINING MED PEACH WITH SEDIMENT. TURNED Q2 IN BED. BED BATH TODAY, CLEANSED RED GROIN, ZINC CREAM TO SPLIT AREAS AND MICONAZOLE POWDER TO GROIN AND BOTTOM REDNESS WELL. PLAN FOR PT TO DC HOME WITH DAUGHTER TOMORROW. PLAN TO LEAVE HENSLEY IN AND FOLLOW UP WITH UROLOGYY TO FOLLOW. WILL REPORT TO FABI MCCOY
[2023-12-10] MEDS ORDERED: Polyethylene Glycol 3350 17 gm PO SCH (17:45)
--- NOTE | 2023-12-10 18:07 | NUR ---
NO BM SINCE ADMIT. STARTED SENEKOT THIS AM AND GAVE DULCOLAX TAB AROUND 1300. PT'S ABD IS ROUND, STATES IT FEELS DISTENDED. PT BEGAN HAVING SEVERE ABD CRAMPING AT 1700, RN GAVE PT BIS SUPP, FELT GOLF BALL SIZE HARD STOOL IN RECTAL VAULT. DIG ASSIST TO GET IT OUT. THIS HELPED PT'S CRAMPING BRIEFLY. PT STATES CONT INTERMITTANT CRAMPING. ADDED MIRILAX TO BOWEL REGIMINE. PT IS NOT WANTING DINNER BUT CONSUMED A SUPPLEMENT GLUCERNA WITH HER MIRILAX. HOPING FOR MORE BOWEL TO WORK IT'S WAY DOWN FOR A BM. WILL REPORT TO ONCOMING DARIUS
[2023-12-10 20:09] VITALS: BP 133/59
[2023-12-11 03:20] VITALS: BP 129/59
[2023-12-11 06:18] LABS: BASOPHILS ABSOLUTE AUTO 0.04 K/mm3 (0.00-0.23); BASOPHILS PERCENT AUTO 0 % (0-2); EOSINOPHILS ABSOLUTE AUTO 0.34 K/mm3 (0.00-0.68); EOSINOPHILS PERCENT AUTO 2 % (0-6); Hematocrit 30.8 % (33.0-51.0); Hemoglobin 9.6 g/dL (11.5-16.0); IMMATURE GRAN ABSOLUTE AUTO 0.28 K/mm3 (0.00-0.10); IMMATURE GRAN PERCENT AUTO 2 % (0-1); LYMPHOCYTES ABSOLUTE AUTO 2.45 K/mm3 (0.84-5.20); LYMPHOCYTES PERCENT AUTO 16 % (21-46); MONOCYTES PERCENT AUTO 5 % (4-13); Mean Corpuscular HGB 28.9 pg (26.0-34.0); Mean Corpuscular HGB Conc 31.2 g/dL (31.5-36.5); Mean Corpuscular Volume 93 fL (80-100); Mean Platelet Volume 10.4 fL (9.1-12.4); NEUTROPHILS PERCENT AUTO 75 % (41-73); Platelet Count 331 K/mm3 (150-400); RDW Coefficient Variation 19.1 % (11.7-14.2); RDW Standard Deviation 65.1 fL (35.1-46.3); Red Blood Cell Count 3.32 M/mm3 (3.80-5.20); White Blood Cell Count 15.01 K/mm3 (4.00-11.30)
[2023-12-11 06:46] LABS: Bun/Creatinine Ratio 28.1 (12.0-20.0); Calcium, Blood 8.6 mg/dL (8.5-10.1); Creatinine, Blood 2.17 mg/dL (0.40-1.00); Potassium, Blood 5.1 mmol/L (3.5-5.5)
--- NOTE | 2023-12-11 06:54 | NUR ---
ART DEPARTMENT HEAD PATIENT IS A7OX2, WITHDRAWN,VITALS ARE STABLE AND IS ON ROOM AIR. PATIENT COMPLAINED OF SEVERE ABDOMEN PAIN THROUGHOUT LAST NIGHT AND PRN FENTANYL AND TYLENOL GIVEN. PAIN GETS VERY INTENSE CAUSING PATIENT TO CRY AND PURSED LIP BREATH. PATIENT DENIED FEELING SHORTNESS OF BREATH. PATIENT WAS CLOSELY MONITORED AND GIVEN PRN PAIN MEDS. MD ORDERED CT OF ABD. CT SHOWED MILD TO MODERATE SIGMOID AND COLONIC FECAL LOADING. PATIENT HAS POOR APPETITE AND IS ENCOURAGED TO EAT AND DRINK TO HELP WITH BOWEL MOVEMENT.
[2023-12-11 07:31] VITALS: BP 118/56
[2023-12-11] MEDS ORDERED: Sod Phosphate/Sod Biphosphate 132 ML BTL PR PRN (07:45)
[2023-12-11] MEDS ORDERED: Lactulose 20 GM/30 ML UDC PO ONE (08:00)
[2023-12-11] MEDS ORDERED: NS 1,000 ML IV SCH (08:00)
[2023-12-11 16:26] VITALS: BP 133/61
--- NOTE | 2023-12-11 17:10 | NUR ---
SHIFT SUMMARY PT AWAKE DURING SHIFT REPORT, C/O LOW ABD PAIN D/T CONSTIPATION. BOWEL CARE GIVEN PER EMAR. DR BENITEZ IN TO SEE PT AND DISCUSS PLAN OF CARE. NEW ORDERS PLACED. ADDITIONAL BOWEL CARE GIVEN. P/T IN TO SEE PT AND ASSIST TO CHAIR. PT THEN ASSISTED TO BSC FOR LRG BM; STOOL VERY HARD. DR IVERSON IN TO SEE PT WELL. ENEMA ORDERED AND GIVEN. PT CONTINUED TO HAVE BM'S TODAY, PASSING VERY HARD STOOL WITH SOME LOOSE STOOL WELL. PT UP TO CHAIR AND BSC SEVERAL TIMES THRU OUT THE DAY TO ASSIST WITH MOVING BOWELS. PT UP TO CHAIR FOR MEALS NOW. PER MEDICAL CLERK, PT NOW TO D/C TO SNF; [facility] TOMORROW. DR IVERSON AND MEDICAL CLERK IN TO TALK WITH DAUGHTER AND FAMILY MULTIPLE TIMES THRU OUT THE DAY. PT MEDICATED WITH TYLENOL PER EMAR FOR C/O BACK PAIN, BUT PT'S C/O ABD PAIN HAS CONTINUED TO IMPROVE WITH EACH BM. ABD IS SOFT, BUT DISTENDED FROM BLOATING. CALL LT IN REACH, ABLE TO MAKE NEEDS KNOWN.
[2023-12-11 19:56] VITALS: BP 144/63
[2023-12-12 02:56] VITALS: BP 132/61
--- NOTE | 2023-12-12 05:29 | NUR ---
DEVELOPMENTAL ELECTRONICS ASSEMBLER PATIENT ISS A&OX2-3, VITALS ARE STABLE, ON ROOM AIR. ONE ASSISTE TO THE BEDSIDE COMMODE PATIENT COMPLAIN OF PAIN TO ABDOMEN BUT SAID IT'S NOT SEVERE YESTERDAY. PATIENT ALSO COMPLAAIN OF NAUSEA AND PRN NAUSEA MED WAS GIVEN. PATIENT IS CONSTIPATED AND SMALL HARD BOWEL MOVEMENT. PATIENT HAS A HENSLEY CATHETER IN FOR RETENSION. PLAN IS FOR PATIENT TO BE D/C TO A REHAB FACILITY TODAY IF FAMILY AGREES.
[2023-12-12 06:22] LABS: BASOPHILS ABSOLUTE AUTO 0.04 K/mm3 (0.00-0.23); BASOPHILS PERCENT AUTO 0 % (0-2); EOSINOPHILS ABSOLUTE AUTO 0.23 K/mm3 (0.00-0.68); EOSINOPHILS PERCENT AUTO 1 % (0-6); Hematocrit 27.8 % (33.0-51.0); Hemoglobin 8.5 g/dL (11.5-16.0); IMMATURE GRAN ABSOLUTE AUTO 0.23 K/mm3 (0.00-0.10); IMMATURE GRAN PERCENT AUTO 1 % (0-1); LYMPHOCYTES ABSOLUTE AUTO 2.96 K/mm3 (0.84-5.20); LYMPHOCYTES PERCENT AUTO 16 % (21-46); MONOCYTES ABSOLUTE AUTO 0.74 K/mm3 (0.16-1.47); MONOCYTES PERCENT AUTO 4 % (4-13); Mean Corpuscular HGB 28.4 pg (26.0-34.0); Mean Corpuscular HGB Conc 30.6 g/dL (31.5-36.5); Mean Corpuscular Volume 93 fL (80-100); Mean Platelet Volume 10.4 fL (9.1-12.4); NEUTROPHILS ABSOLUTE AUTO 14.77 K/mm3 (1.96-9.15); NEUTROPHILS PERCENT AUTO 78 % (41-73); Platelet Count 332 K/mm3 (150-400); RDW Coefficient Variation 19.4 % (11.7-14.2); RDW Standard Deviation 65.3 fL (35.1-46.3); Red Blood Cell Count 2.99 M/mm3 (3.80-5.20); White Blood Cell Count 18.97 K/mm3 (4.00-11.30)
[2023-12-12 06:50] LABS: Albumin, Blood 1.6 g/dL (3.4-5.0); Anion Gap 9 mmol/L (3-11); Blood Urea Nitrogen 55 mg/dL (8-24); Bun/Creatinine Ratio 28.8 (12.0-20.0); CO2, Blood 20 mmol/L (21-32); Calcium, Blood 8.3 mg/dL (8.5-10.1); Chloride, Blood 114 mmol/L (98-108); Creatinine, Blood 1.91 mg/dL (0.40-1.00); Glomerular Filtration Rate 25 (60-); Glucose, Blood 116 mg/dL (70-99); Magnesium, Blood 2.4 mg/dL (1.6-2.4); Phosphorus, Blood 3.6 mg/dL (2.5-4.9); Potassium, Blood 4.4 mmol/L (3.5-5.5); Sodium, Blood 139 mmol/L (136-145)
[2023-12-12 07:21] VITALS: BP 111/57
[2023-12-12] MEDS ORDERED: Calcium Carbonate 500 MG Tab Chew PO PRN (09:45)
[2023-12-12] MEDS ORDERED: BISA10S PR (10:31)
[2023-12-12] MEDS ORDERED: ANTIFUNGAL EXTR92 GM TOP (10:32)
[2023-12-12] MEDS ORDERED: ALLO300 PO (10:36)
[2023-12-12] MEDS ORDERED: CEFD300 PO (10:37)
[2023-12-12] MEDS ORDERED: TRESIBA FL100 UNIT/2 SC (10:39)
[2023-12-12] MEDS ORDERED: PREG50 PO (10:40)
[2023-12-12] MEDS ORDERED: Calcium Carbon500 MG PO (10:41)
[2023-12-12] MEDS ORDERED: AMOX875 PO (10:42)
[2023-12-12 11:09] LABS: SARS-Cov-2 (COVID-19) PCR, MMC POSITIVE (NEGATIVE)
[2023-12-12 15:29] VITALS: BP 133/55
--- NOTE | 2023-12-12 18:17 | NUR ---
SHIFT SUMMARY; PATIENT HAD POSITIVE PCR FOR COVID. HOWEVER PER LAB LEVELS WERE LOW AND SHOW A PREVIOUS HISTORY OF INFECTION. RAPID TEST PERFORMED BY KYLIE HOLLOWAY RN AND NEGATIVE TEST OBTAINED. SHE WILL HAVE 2ND RAPID COVID TEST IN AM AND IF NEGATIVE RESULT WILL BE DISCHARGED TO [facility] PER KYLIE HOLLOWAY RN. SHE IS ORIENTED TO SELF AND PLACE. NOT TIME OR SITUATION. SHE IS ABLE TO FEED HERSELF AND USES CALL LIGHT APPROPRIATELY TO MAKE HER NEEDS KNOWN. HER IV'S WERE PULLED WHEN IT WAS THOUGHT SHE WAS DISCHAERGING TODAY. PER NO IV IS NEEDED AT THIS TIME. ORDER IS PUT IN .
[2023-12-12 19:57] VITALS: BP 145/66
[2023-12-13 03:37] VITALS: BP 127/54
[2023-12-13 05:17] LABS: BASOPHILS ABSOLUTE AUTO 0.03 K/mm3 (0.00-0.23); BASOPHILS PERCENT AUTO 0 % (0-2); EOSINOPHILS ABSOLUTE AUTO 0.15 K/mm3 (0.00-0.68); EOSINOPHILS PERCENT AUTO 1 % (0-6); Hematocrit 27.3 % (33.0-51.0); Hemoglobin 8.2 g/dL (11.5-16.0); IMMATURE GRAN ABSOLUTE AUTO 0.23 K/mm3 (0.00-0.10); IMMATURE GRAN PERCENT AUTO 1 % (0-1); LYMPHOCYTES ABSOLUTE AUTO 2.55 K/mm3 (0.84-5.20); LYMPHOCYTES PERCENT AUTO 13 % (21-46); MONOCYTES ABSOLUTE AUTO 0.69 K/mm3 (0.16-1.47); MONOCYTES PERCENT AUTO 4 % (4-13); Mean Corpuscular Volume 93 fL (80-100); Mean Platelet Volume 10.2 fL (9.1-12.4); NEUTROPHILS ABSOLUTE AUTO 15.67 K/mm3 (1.96-9.15); NEUTROPHILS PERCENT AUTO 81 % (41-73); Platelet Count 360 K/mm3 (150-400); RDW Coefficient Variation 19.5 % (11.7-14.2); RDW Standard Deviation 66.6 fL (35.1-46.3); Red Blood Cell Count 2.93 M/mm3 (3.80-5.20); White Blood Cell Count 19.32 K/mm3 (4.00-11.30)
--- NOTE | 2023-12-13 05:29 | NUR ---
HUMAN RESOURCES REPRESENTATIVE PATIENT IS A&OX3, VITALS ARE STABLE AND PATIENT IS ON ROOM AIR. PATIENT COMPLAIN OF ABD PAIN AND NAUSEA DUE TO FECAL OVERLOAD. PATIENT IS VERY CONSTIPATED AND IS ON BOWEL PREP. ABDOMEN IS DISTENDED AND TENDER TO TOUCH. PATIENT HAD SOME BOWEL MOVEMENT DURING SHIFT. PATIENT HAS VERY POOR APPETITE AND REFUSED TO EAT DINNER. FURTHER ENCOURAGEMENT TO EAT AND AMBULATE IS NEEDED TO HELP IMPROVE BOWEL MOVEMENT. PLAN WAS FOR PATIENT TO BE D/C YESTERDAY DURING DAY SHIFT BUT PATIENT TESTED POSITIVE FOR COVID. A RAPID TEST WILL BE DONE TODAY TO CONFIRM IF PATIENT IS POSITIVE. GOAL IS TO BE D/C TO A REHAB FACILITY.
[2023-12-13 05:46] LABS: Bun/Creatinine Ratio 26.7 (12.0-20.0); Calcium, Blood 8.7 mg/dL (8.5-10.1); Creatinine, Blood 1.5 mg/dL (0.40-1.00); Potassium, Blood 4.8 mmol/L (3.5-5.5)
[2023-12-13 07:35] VITALS: BP 131/68
--- NOTE | 2023-12-13 10:15 | NUR ---
rapid COVID TEST is negative.
[2023-12-13] MEDS ORDERED: CefTRIAXone Sodium 1,000 MG in NS 100 ML IV ONE (12:00)
[2023-12-13] MEDS ORDERED: Cefdinir 300 MG Cap PO STA (12:41)
[2023-12-13 15:35] VITALS: BP 124/63
== END 2023-12-13 16:40 | DRG 682 ==
LOC: ER 09:22 → MEDS 09:23 → ENPENDDIS 12-11 10:58 → EDPENDDIS 12-11 10:58 → MEDS 12-13 16:40
PROVIDERS: Emergency Medicine; Student in an Organized Health Care Education/Training Program; ADMIT Internal Medicine
DX: N17.9 Acute kidney failure, unspecified (principal); I50.23 Acute on chronic systolic (congestive) heart failure; N39.0 Urinary tract infection, site not specified; E11.22 Type 2 diabetes mellitus with diabetic chronic kidney disease; I25.10 Atherosclerotic heart disease of native coronary artery without angina pectoris; N18.4 Chronic kidney disease, stage 4 (severe); I34.0 Nonrheumatic mitral (valve) insufficiency; B37.32 Chronic candidiasis of vulva and vagina; N13.9 Obstructive and reflux uropathy, unspecified; Z90.49 Acquired absence of other specified parts of digestive tract; Z95.5 Presence of coronary angioplasty implant and graft; Z90.710 Acquired absence of both cervix and uterus; Z88.1 Allergy status to other antibiotic agents; Z79.899 Other long term (current) drug therapy; Z79.51 Long term (current) use of inhaled steroids; Z79.01 Long term (current) use of anticoagulants; Z79.4 Long term (current) use of insulin
CPT/HCPCS: 36415; 71045; 74176; 76770; 80048; 80053; 80069; 81001; 82947; 83036; 83735; 83880; 85025; 87077; 87086; 87186; 93005; 93010; 94760; 96361; 96365; 96372; 96375; 96376; 97110; 97110-CQ; 97112; 97162; 97530; 99285-25; A9270; G0378; J0696; J1650; J1815; J3010; J7030; J7050; U0002

== ENCOUNTER → 2024-03-05 | Outpatient (CLI) | payer MEDICARE ==
[~2024-03-05] MED LIST changes: +AMOX875 PO; +ANTIFUNGAL EXTR92 GM TOP; +BISA10S PR; +Calcium Carbon500 MG PO; +LIOT5 PO; +PREG50 PO; +PREGABALIN100 MG PO; +TRESIBA FL100 UNIT/2 SC
== END | disposition home or self-care (01) ==
LOC: LAB SHORT 11:58 → LAB 11:58
DX: N39.0 Urinary tract infection, site not specified (principal)
CPT/HCPCS: 87086

== ENCOUNTER 2024-03-09 17:14 | Inpatient (IN) | payer MEDICARE ==
[~2024-03-09] VITALS: Ht 152.4 cm; Wt 72.4 kg
[~2024-03-09 17:14] MED LIST changes: -LIOT5 PO
[2024-03-09 18:44] LABS: BASOPHILS ABSOLUTE AUTO 0.05 K/mm3 (0.00-0.23); BASOPHILS PERCENT AUTO 1 % (0-2); EOSINOPHILS ABSOLUTE AUTO 0.53 K/mm3 (0.00-0.68); EOSINOPHILS PERCENT AUTO 6 % (0-6); Hematocrit 32.3 % (33.0-51.0); Hemoglobin 10.1 g/dL (11.5-16.0); IMMATURE GRAN ABSOLUTE AUTO 0.08 K/mm3 (0.00-0.10); IMMATURE GRAN PERCENT AUTO 1 % (0-1); LYMPHOCYTES ABSOLUTE AUTO 2.32 K/mm3 (0.84-5.20); LYMPHOCYTES PERCENT AUTO 25 % (21-46); MONOCYTES ABSOLUTE AUTO 0.48 K/mm3 (0.16-1.47); MONOCYTES PERCENT AUTO 5 % (4-13); Mean Corpuscular HGB 29.4 pg (26.0-34.0); Mean Corpuscular HGB Conc 31.3 g/dL (31.5-36.5); Mean Corpuscular Volume 94 fL (80-100); NEUTROPHILS ABSOLUTE AUTO 5.86 K/mm3 (1.96-9.15); NEUTROPHILS PERCENT AUTO 63 % (41-73); NRBC ABSOLUTE 0.03 K/mm3 (0.00-0.02); NRBC Auto 0.3 /100 WBC (0.0-0.2); RDW Coefficient Variation 17.1 % (11.7-14.2); RDW Standard Deviation 57.1 fL (35.1-46.3); Red Blood Cell Count 3.43 M/mm3 (3.80-5.20); White Blood Cell Count 9.32 K/mm3 (4.00-11.30)
[2024-03-09 18:56] LABS: Magnesium, Blood 2.6 mg/dL (1.6-2.4)
[2024-03-09 19:12] LABS: Albumin, Blood 2.4 g/dL (3.4-5.0); Albumin/Globulin Ratio 0.5 (0.8-1.8); Bilirubin, Total 0.2 mg/dL (0.1-1.0); Calcium, Blood 9.2 mg/dL (8.5-10.1); Creatinine, Blood 3.79 mg/dL (0.40-1.00); Globulin, Blood 4.8 g/dL (2.2-4.0); Total Protein, Blood 7.2 g/dL (6.4-8.2)
[2024-03-09 19:14] LABS: Mean Platelet Volume 10.5 fL (9.1-12.4); Platelet Count 268 K/mm3 (150-400)
[2024-03-09 19:28] LABS: Potassium, Blood 6.8 mmol/L (3.5-5.5)
[2024-03-09] MEDS ORDERED: CEPH500 PO (19:30)
[2024-03-09] MEDS ORDERED: Calcium Gluconate 10% 100 MG/ML INJ IV ONE (20:10)
[2024-03-09] MEDS ORDERED: Insulin Regular 100 Unit/ML 1ML Dose IV ONE (20:10)
[2024-03-09] MEDS ORDERED: Sodium Polystyrene Sulfonate 15GM / 60ML BTL PO ONE (20:10)
[2024-03-09] MEDS ORDERED: Dextrose 50% 50 ML Syringe IV ONE (20:10)
[2024-03-09] MEDS ORDERED: NS 1,000 ML IV SCH (20:10)
[2024-03-09] MEDS ORDERED: Dextrose 50% 50 ML Vial IV ONE (20:20)
[2024-03-09] MEDS ORDERED: Albuterol 2.5 MG/3 ML VIAL INH PRN (20:50)
[2024-03-09] MEDS ORDERED: Acetaminophen 325 MG TABLET PO PRN (20:55)
[2024-03-09] MEDS ORDERED: Ondansetron HCl 2 MG / ML 2ML Vial IV PRN (20:55)
[2024-03-09] MEDS ORDERED: FLU VACC TS2024-25(6MOS UP)/PF 45 MCG/0.5 ML SYRINGE IM SCH (20:55)
[2024-03-09] MEDS ORDERED: Pregabalin 50 MG Capsule PO SCH (21:00)
[2024-03-09] MEDS ORDERED: Sodium Bicarb 8.4% 50 mEq Syringe IV ONE (21:00)
[2024-03-09] MEDS ORDERED: Sodium Zirconium Cyclosilicate 10 GM Packet PO SCH (21:00)
[2024-03-09] MEDS ORDERED: CefTRIAXone Sodium 1,000 MG in NS 100 ML IV ONE (21:10)
[2024-03-09] MEDS ORDERED: Sodium Bicarb 8.4% 1 MEQ/ML 50 ML Vial IV ONE (21:25)
[2024-03-09 21:53] LABS: Albumin, Blood 2.2 g/dL (3.4-5.0); Anion Gap 15 mmol/L (3-11); Blood Urea Nitrogen 86 mg/dL (8-24); Bun/Creatinine Ratio 24.3 (12.0-20.0); CO2, Blood 20 mmol/L (21-32); Chloride, Blood 101 mmol/L (98-108); Creatinine, Blood 3.54 mg/dL (0.40-1.00); Glomerular Filtration Rate 12 (60-); Glucose, Blood 236 mg/dL (70-99); Phosphorus, Blood 5.7 mg/dL (2.5-4.9); Sodium, Blood 129 mmol/L (136-145)
[2024-03-09 21:54] LABS: Potassium, Blood 6.8 mmol/L (3.5-5.5)
[2024-03-09 22:30] VITALS: BP 147/66
[2024-03-09 22:45] VITALS: BP 151/67
[2024-03-09 23:00] VITALS: BP 145/75
[2024-03-09 23:05] LABS: Albumin, Blood 2.4 g/dL (3.4-5.0); Albumin/Globulin Ratio 0.5 (0.8-1.8); Bilirubin, Total 0.1 mg/dL (0.1-1.0); Bun/Creatinine Ratio 24.4 (12.0-20.0); Calcium, Blood 9.3 mg/dL (8.5-10.1); Creatinine, Blood 3.56 mg/dL (0.40-1.00); Globulin, Blood 4.5 g/dL (2.2-4.0); Potassium, Blood 5.2 mmol/L (3.5-5.5); Total Protein, Blood 6.9 g/dL (6.4-8.2)
[2024-03-09 23:15] VITALS: BP 131/62
[2024-03-09] MEDS ORDERED: Bumetanide 0.25 MG/ML 10ML Vial IV ONE (23:30)
[2024-03-09] MEDS ORDERED: FURO20 PO (23:49)
[2024-03-10] MEDS ORDERED: NS 250 ML IV PRN (00:05)
[2024-03-10 00:15] VITALS: BP 141/70
[2024-03-10 00:26] LABS: Source, Urine Foley catheter
[2024-03-10 00:30] VITALS: BP 134/62
[2024-03-10 00:31] LABS: Appearance, Urine Hazy (Clear); Bilirubin, Urine Neg (Neg); Blood, Urine 2+ (Neg); Glucose Qualitative, Urine Neg (Neg); Ketones, Urine Neg (Neg); Leukocyte Esterase, Urine 3+ (Neg); Nitrite, Urine Neg (Neg); Protein, Urine 2+ (Neg); Urobilinogen, Urine NORM (Normal)
[2024-03-10 00:42] LABS: Color, Urine Pale Yellow (P-Yellow)
[2024-03-10 00:43] LABS: Bacteria Many /hpf; Red Blood Cells, Urine 0-2 /hpf (0-2); Squamous Epithelial Cells Few /hpf (Few); White Blood Cells, Urine TNTC /hpf (0-5)
[2024-03-10 03:23] LABS: BASOPHILS ABSOLUTE AUTO 0.04 K/mm3 (0.00-0.23); BASOPHILS PERCENT AUTO 0 % (0-2); EOSINOPHILS ABSOLUTE AUTO 0.87 K/mm3 (0.00-0.68); EOSINOPHILS PERCENT AUTO 8 % (0-6); Hematocrit 31.1 % (33.0-51.0); Hemoglobin 9.8 g/dL (11.5-16.0); IMMATURE GRAN ABSOLUTE AUTO 0.08 K/mm3 (0.00-0.10); IMMATURE GRAN PERCENT AUTO 1 % (0-1); LYMPHOCYTES ABSOLUTE AUTO 2.62 K/mm3 (0.84-5.20); LYMPHOCYTES PERCENT AUTO 23 % (21-46); MONOCYTES ABSOLUTE AUTO 0.65 K/mm3 (0.16-1.47); MONOCYTES PERCENT AUTO 6 % (4-13); Mean Corpuscular HGB Conc 31.5 g/dL (31.5-36.5); Mean Corpuscular Volume 95 fL (80-100); Mean Platelet Volume 10.3 fL (9.1-12.4); NEUTROPHILS ABSOLUTE AUTO 7.02 K/mm3 (1.96-9.15); NEUTROPHILS PERCENT AUTO 62 % (41-73); NRBC ABSOLUTE 0.02 K/mm3 (0.00-0.02); NRBC Auto 0.2 /100 WBC (0.0-0.2); Platelet Count 263 K/mm3 (150-400); RDW Coefficient Variation 16.6 % (11.7-14.2); RDW Standard Deviation 57.5 fL (35.1-46.3); Red Blood Cell Count 3.27 M/mm3 (3.80-5.20); White Blood Cell Count 11.28 K/mm3 (4.00-11.30)
[2024-03-10 03:58] LABS: Albumin, Blood 2.2 g/dL (3.4-5.0); Anion Gap 13 mmol/L (3-11); Blood Urea Nitrogen 86 mg/dL (8-24); Bun/Creatinine Ratio 24.9 (12.0-20.0); CO2, Blood 24 mmol/L (21-32); Chloride, Blood 104 mmol/L (98-108); Creatinine, Blood 3.46 mg/dL (0.40-1.00); Glomerular Filtration Rate 12 (60-); Glucose, Blood 101 mg/dL (70-99); Magnesium, Blood 2.1 mg/dL (1.6-2.4); Phosphorus, Blood 6.2 mg/dL (2.5-4.9); Potassium, Blood 5.1 mmol/L (3.5-5.5); Sodium, Blood 136 mmol/L (136-145); Uric Acid, Blood 3.4 mg/dL (2.6-6.0)
[2024-03-10 04:01] VITALS: BP 131/59
--- NOTE | 2024-03-10 06:15 | NUR ---
SHIFT SUMMARY PATIENT TO ICU 16 FROM ER AT 2230. PATIENT IS ALERT AND ORIENTED X4, FORGETFUL AT TIMES. SP02 95% ON RA, DENIES SOB. HR SR 70s, BP STABLE. DENIES CP/PRESSURE. HENSLEY PLACED AND PURULENT URINE OUTPUT WITH SEDIMENT, SAMPLE SENT TO LAB. WOUNDS TO BUE FROM FALLS AT HOME, CLEANED, BANDAGED AND PHOTOS IN CHART, HOSPITIALIST IS AWARE. PATIENT HAD MULTIPLE BMs THIS SHIFT. CALL LIGHT IN REACH
[2024-03-10] MEDS ORDERED: Cosyntropin 0.25 MG / ML 1ML Vial IM ONE (07:25)
[2024-03-10] MEDS ORDERED: Insulin Human Lispro 100 Units/ML 3ML Syringe SC SCH (07:30)
[2024-03-10 08:52] VITALS: BP 117/80
[2024-03-10] MEDS ORDERED: CefTRIAXone Sodium 1,000 MG in NS 100 ML IV SCH (09:00)
[2024-03-10] MEDS ORDERED: Insulin Glargine-Yfgn 100 Unit/mL 3 ML SYR SC SCH (09:00)
[2024-03-10] MEDS ORDERED: Metoprolol Succinate 50 MG TABCR PO SCH (09:00)
[2024-03-10] MEDS ORDERED: Heparin Sodium,Porcine 5,000 UNIT/0.5 ML SDV SC SCH (09:00)
[2024-03-10] MEDS ORDERED: Atorvastatin 40 MG Tab PO SCH (09:00)
[2024-03-10 10:47] LABS: Free Thyroxine 0.73 ng/dL (0.70-1.60); Triiodothyronine, Free 1.5 pg/mL (2.18-3.98)
[2024-03-10 13:13] LABS: Bun/Creatinine Ratio 24.2 (12.0-20.0); Calcium, Blood 8.9 mg/dL (8.5-10.1); Creatinine, Blood 3.27 mg/dL (0.40-1.00); Potassium, Blood 5.4 mmol/L (3.5-5.5)
--- NOTE | 2024-03-10 13:31 | NUR ---
PT A/O TO PERSON, PLACE, MONTH AND YEAR. PT HAS CONFUSED CONVERSATION AT TIMES BUT CAN REMEMBER DETAILS SUCH MEDS TAKEN AT HOME. ON ROCEPHIN FOR UTI. TAKES PILLS WITH WATER WITHOUT DIFFICULTY. SHORT RUN OF VTACH ON THE MONITOR THIS AM BUT PT WAS ASYMPTOMATIC AND VITALS STABLE. POTASSIUM IS STILL NORMAL ON LATEST LABS DRAWN THIS AFTERNOON. PT IS BEING TRANSFERED TO MEDICAL ROOM 301, NO SIGN OF DISTRESS SHE LEAVES THE UNIT.
[2024-03-10 15:07] VITALS: BP 136/57
--- NOTE | 2024-03-10 15:50 | NUR ---
TRANSFER NOTE RESPORT RECIEVED FROM ICU NURSE ECTOR. PATIENT ARRIVED IN BED AND TRANSFERRED TO ROOM 301 AROUND 1400. PATIENT A/OX4, REPORTS OF INTERMITTENT CONFUSION, BUT NOT WITNESSED UPON ADMISSION TO NEW ROOM. ORIENTED TO ROOM, PATIENT'S DAUGHTER, MARINE, AT BEDSIDE. PATIENT WITH HENSLEY IN PLACE, DRAINING YELLOW URINE. DENIES ANY PAIN. PICTURES OBTAINED OF SKIN TEARS TO BILATERAL UPPER ARMS AND DR. DESIR NOTIFIED OF MOIST RASH TO UNDER LEFT BREAST AND UNDER RIGHT SIDED ABDOMINAL FOLD. WOUND ORDERS RECIEVED FOR SKIN TEARS AND MEDICATED POWDER FOR RASH. 1 PERSON ASSIST FOR TRANSFERS. TELEMETRY IN PLACE. NO OTHER CONCERNS AT THIS TIME.
[2024-03-10] MEDS ORDERED: Darbepoetin Alfa in Polysorbat 25 MCG/0.42 ML Syringe SC SCH (16:00)
--- NOTE | 2024-03-10 18:03 | NUR ---
SHIFT SUMMARY PATIENT A/OX4. DENIES ANY PAIN THIS SHIFT, ABLE TO MAKE NEEDS KNOWN. ABLE TO GET UP INTO THE RECLINER WITH PHYSICAL THERAPY FOR DINNER. COMPLAINING OF NAUSEA, SOFRAN GIVEN PER AUG. BANDAGES APPLIED TO BILATERAL UPPER EXTREMITY SCATTERED SKIN TEARS.TELEMETRY IN PLACE WITH NO EVENTS NOTED. HENSLEY IN PLACE, DRAINING PROPERLY WITH CLOUDY YELLOW URINE. NO OTHER CONCERNS AT THIS TIME.
[2024-03-10 19:55] VITALS: BP 127/59
[2024-03-10] MEDS ORDERED: Miconazole Nitrate 2% 85 GM PWD TOP SCH (21:00)
--- NOTE | 2024-03-11 03:11 | NUR ---
SHIFT SUMMARY 88 YR F ADMITTED ON 03/09/24. FULL CODE. PT BECAME CONFUSED THIS SHIFT AND EXPRESSED TO THE LUNCHROOM AIDE THAT THERE WERE 3 MEN IN HER ROOM WHO ESCAPED OUT THE WINDOW. PT BECAME AGITATED WHEN LUNCHROOM AIDE ADVISED PT THAT THERE WAS NO ONE IN THE ROOM AND THE WINDOWS DONT OPEN. ASIDE FROM THIS, THE PT DID NOT APPEAR TO BE CONFUSED. SHE IS ABLE TO HOLD A CONVERSATION AND STAY ON TRACK WITH THE SUBJECT. SHE NOW APPEARS TO BE RESTING COMFORTABLY. HENSLEY IS PATENT AND DRAINING WELL. NO ADVERSE EVENTS REPORTED BY STICK ROLLER. BED IN LOW POSITION AND CALL LIGHT IN REACH.
[2024-03-11 03:42] VITALS: BP 128/62
[2024-03-11 07:24] VITALS: BP 148/64
[2024-03-11] MEDS ORDERED: Liothyronine Sodium 5 MCG Tab PO SCH (08:00)
[2024-03-11] MEDS ORDERED: Ondansetron HCl 2 MG / ML 2ML Vial IV PRN (11:15)
[2024-03-11 12:07] LABS: Bun/Creatinine Ratio 23.6 (12.0-20.0); Calcium, Blood 8.5 mg/dL (8.5-10.1); Creatinine, Blood 2.58 mg/dL (0.40-1.00); Potassium, Blood 4.3 mmol/L (3.5-5.5)
[2024-03-11 14:32] VITALS: BP 138/63
--- NOTE | 2024-03-11 17:05 | NUR ---
SHIFT SUMMARY PATIENT A/OX4, ABLE TO MAKE NEEDS KNOWN. PATIENT WITH VISUAL HALLUCINATIONS THIS SHIFT, DAUGHTER, MARINE, AT BEDSIDE STATES IS COMMON OCCURENCE WHEN PATIENT HAS UTIs. PATIENT WITH NAUSEA THIS AM, ZOFRAN ADMINISTERED X2, EFFECTIVE. TELE IN PLACE, NO EVENTS THIS SHIFT. HENSLEY REMOVED THIS AFTERNOON AT 1445, PATIENT HAS YET TO VOID. Q6H BLADDER SCAN ORDER IN PLACE. NO OTHER CONCERNS AT THIS TIME.
[2024-03-11 19:29] VITALS: BP 142/71
[2024-03-12] MEDS ORDERED: Melatonin 3 MG Tab PO PRN (00:05)
[2024-03-12 02:00] VITALS: BP 143/78
--- NOTE | 2024-03-12 04:11 | NUR ---
PT RESTED QUIETLY MOST OF THE NIGHT. C/O PAIN AND RESTLESS. MEDICATED PER DR ORDERS. RESTING QUIETLY AT THIS TIME.
[2024-03-12 05:26] LABS: Hematocrit 29.4 % (33.0-51.0); Hemoglobin 9.1 g/dL (11.5-16.0)
[2024-03-12 05:45] LABS: Albumin, Blood 2.1 g/dL (3.4-5.0); Anion Gap 10 mmol/L (3-11); Blood Urea Nitrogen 51 mg/dL (8-24); Bun/Creatinine Ratio 23.7 (12.0-20.0); CO2, Blood 25 mmol/L (21-32); Calcium, Blood 8.2 mg/dL (8.5-10.1); Chloride, Blood 107 mmol/L (98-108); Creatinine, Blood 2.15 mg/dL (0.40-1.00); Glomerular Filtration Rate 22 (60-); Glucose, Blood 131 mg/dL (70-99); Potassium, Blood 3.9 mmol/L (3.5-5.5); Sodium, Blood 138 mmol/L (136-145)
[2024-03-12 07:20] VITALS: BP 144/75
[2024-03-12] MEDS ORDERED: Aspirin 81 MG Chew PO SCH (09:00)
--- NOTE | 2024-03-12 09:00 | NUR ---
pt laying in bed, very sleepy, she wakes when spoke to but immediately returns to sleep, did take her po meds without diff, lungs are clear a bit dim in bases, resp even and unlabored, no cough noted, hrr, no edema noted, ppp+2, cap refill <3 sec, vs stable, afebrile, power glide to vivian site is clear and patent, btx4, abd flat soft nontender, voids without diff, skin ok, maew, a bit unsteady on feet without a walker, but does ok with walker, elizabeth, call light in reach.
--- NOTE | 2024-03-12 09:56 | NUR ---
pt got herself up out of bed, bedalarm went off, she is confused, didn't know where she is and why she's here, doesn't remember being brought in. reoriented her and told her why she's in hospital, she ambulated to the bathroom, voids without diff, she's back in bed at this time. call light in reach.
[2024-03-12] MEDS ORDERED: FURO40 PO (10:43)
[2024-03-12] MEDS ORDERED: MELA3 PO (10:44)
[2024-03-12] MEDS ORDERED: ASPI81CH PO (10:44)
[2024-03-12] MEDS ORDERED: LIOT5 PO (10:46)
--- NOTE | 2024-03-12 13:43 | NUR ---
notified Dr. Ha of pts confusion and sleepiness, waiting to get ahold of daughter, pt has been up twice to bathroom, immediatly returns to sleep. call light in reach.
[2024-03-12 14:43] LABS: Base Excess Venous 4.6 mmol/L; Bicarbonate Venous 28.1 mmol/L (24.0-30.0); PCO2 Venous 44.3 mmHg (38-42); pH Blood Venous 7.42 (7.34-7.37)
[2024-03-12 16:05] VITALS: BP 133/62
--- NOTE | 2024-03-12 19:34 | NUR ---
Pt has been very somulant throughout the shift, she wakes on her own to use the bathroom and is impulsive and gets herself out of bed, confused. daughter in to see her, states increased co2 will cause this, vbg was done and ok, no further changes this shift. call light in reach.
[2024-03-12 19:50] VITALS: BP 127/59
[2024-03-13 02:14] VITALS: BP 137/59
--- NOTE | 2024-03-13 04:07 | NUR ---
pT ALERT AND ORIENTED AT SHIFT CHANGE. AFFECT FLAT LYING QUIETLY IN BED AWAKE AND ALERT. PT UNABLE, UNWILLING, OR FORGETFUL ABOUT USING THE CALL LIGHT. PT IMPULSIVE AT TIMES. BED ALARM IN USE. WILL CONTINUE TO MONITOR PT FREQUENTLY. PT RESTING QUIETLY IN BED WITH EYES CLOSED AT THIS TIME.
[2024-03-13 05:39] LABS: Hemoglobin 9.5 g/dL (11.5-16.0)
[2024-03-13 06:06] LABS: Albumin, Blood 2.1 g/dL (3.4-5.0); Anion Gap 10 mmol/L (3-11); Blood Urea Nitrogen 49 mg/dL (8-24); Bun/Creatinine Ratio 23.8 (12.0-20.0); CO2, Blood 27 mmol/L (21-32); Calcium, Blood 8.8 mg/dL (8.5-10.1); Chloride, Blood 108 mmol/L (98-108); Creatinine, Blood 2.06 mg/dL (0.40-1.00); Glomerular Filtration Rate 23 (60-); Glucose, Blood 220 mg/dL (70-99); Magnesium, Blood 2.6 mg/dL (1.6-2.4); Potassium, Blood 4.4 mmol/L (3.5-5.5); Sodium, Blood 141 mmol/L (136-145)
[2024-03-13 07:21] VITALS: BP 140/60
[2024-03-13] MEDS ORDERED: Furosemide 40 MG Tab PO SCH (09:00)
--- NOTE | 2024-03-13 09:00 | NUR ---
pt laying in bed with eyes closed, wakes much easier this am, she is a/ox4 does not remember being confused yesterday, cooperative with care, follows commands well, lungs are clear dim in bases, resp even and unlabored, no cough noted, hrr, no edema noted, ppp+1, cap refill <3 sec, vs stable, afebrile, power glide to vivian site is clear and patent, btx4, abd flat soft nontender, voids without diff, skin c/w/d, maew, elizabeth, call light in reach.
--- NOTE | 2024-03-13 12:30 | NUR ---
Dr. Ha said pt is looking better, she's awake and to send her home, went over discharge instructions with daughter, she verbalized understanding, power glide removed intact, new meds were faxed to her pharmacy, left via wheelchair with all her belongings with bale piler in attendance.
== END 2024-03-13 12:30 | disposition home or self-care (01) | DRG 683 ==
LOC: ER 17:14 → ICUE 21:21 → MEDS 21:21 → ICUE 22:31 → MEDS 03-10 13:34 → ENPENDDIS 03-12 11:28 → MEDS 03-13 12:30
PROVIDERS: Family Medicine; Internal Medicine; Internal Medicine Nephrology; Nurse Practitioner Acute Care; Physician Assistant; ADMIT Student in an Organized Health Care Education/Training Program
DX: N17.9 Acute kidney failure, unspecified (principal); E87.1 Hypo-osmolality and hyponatremia; E87.20 Acidosis, unspecified; I50.22 Chronic systolic (congestive) heart failure; I13.0 Hypertensive heart and chronic kidney disease with heart failure and stage 1 through stage 4 chronic kidney disease, or unspecified chronic kidney disease; E83.39 Other disorders of phosphorus metabolism; N18.4 Chronic kidney disease, stage 4 (severe); M10.9 Gout, unspecified; N13.6 Pyonephrosis; E11.22 Type 2 diabetes mellitus with diabetic chronic kidney disease; D63.1 Anemia in chronic kidney disease; E87.5 Hyperkalemia; R33.9 Retention of urine, unspecified; N25.81 Secondary hyperparathyroidism of renal origin; I25.10 Atherosclerotic heart disease of native coronary artery without angina pectoris; Z90.710 Acquired absence of both cervix and uterus; Z90.49 Acquired absence of other specified parts of digestive tract; Z79.899 Other long term (current) drug therapy; Z79.4 Long term (current) use of insulin; Z88.8 Allergy status to other drugs, medicaments and biological substances
CPT/HCPCS: 36415; 51798; 71045; 74176; 80048; 80053; 80069; 80400; 81001; 82533; 82803; 82947; 83735; 84439; 84443; 84481; 84550; 85014; 85018; 85025; 87086; 93005; 93010; 94760; 94762; 96374; 96375; 97116; 97161; 97530; 99285-25; A9270; C1751; J0612; J0696; J0834; J0881; J1644; J1815; J2405; J7030; J7050; J7799

== ENCOUNTER → 2024-03-09 | Outpatient (CLI) | payer MEDICARE ==
[2024-03-09 15:42] LABS: BASOPHILS ABSOLUTE AUTO 0.04 K/mm3 (0.00-0.23); BASOPHILS PERCENT AUTO 0 % (0-2); EOSINOPHILS ABSOLUTE AUTO 0.47 K/mm3 (0.00-0.68); EOSINOPHILS PERCENT AUTO 5 % (0-6); Hematocrit 31.1 % (33.0-51.0); Hemoglobin 9.6 g/dL (11.5-16.0); IMMATURE GRAN ABSOLUTE AUTO 0.06 K/mm3 (0.00-0.10); IMMATURE GRAN PERCENT AUTO 1 % (0-1); LYMPHOCYTES ABSOLUTE AUTO 2.17 K/mm3 (0.84-5.20); LYMPHOCYTES PERCENT AUTO 23 % (21-46); MONOCYTES ABSOLUTE AUTO 0.39 K/mm3 (0.16-1.47); MONOCYTES PERCENT AUTO 4 % (4-13); Mean Corpuscular HGB 28.9 pg (26.0-34.0); Mean Corpuscular HGB Conc 30.9 g/dL (31.5-36.5); Mean Corpuscular Volume 94 fL (80-100); Mean Platelet Volume 10.2 fL (9.1-12.4); NEUTROPHILS ABSOLUTE AUTO 6.51 K/mm3 (1.96-9.15); NEUTROPHILS PERCENT AUTO 68 % (41-73); Platelet Count 264 K/mm3 (150-400); RDW Coefficient Variation 17.1 % (11.7-14.2); RDW Standard Deviation 56.2 fL (35.1-46.3); Red Blood Cell Count 3.32 M/mm3 (3.80-5.20); White Blood Cell Count 9.64 K/mm3 (4.00-11.30)
[2024-03-09 15:50] LABS: Albumin, Blood 2.4 g/dL (3.4-5.0); Albumin/Globulin Ratio 0.5 (0.8-1.8); Bilirubin, Total 0.2 mg/dL (0.1-1.0); Bun/Creatinine Ratio 21.3 (12.0-20.0); Calcium, Blood 9.3 mg/dL (8.5-10.1); Creatinine, Blood 4.27 mg/dL (0.40-1.00); Globulin, Blood 4.7 g/dL (2.2-4.0); Total Protein, Blood 7.1 g/dL (6.4-8.2)
[2024-03-09 15:55] LABS: Potassium, Blood 6.7 mmol/L (3.5-5.5)
== END | disposition home or self-care (01) ==
LOC: LAB SHORT 15:36 → LAB 15:36
PROVIDERS: Family Medicine
DX: N39.0 Urinary tract infection, site not specified (principal)
CPT/HCPCS: 80053; 85025; 87086